=== PATIENT | female | born 1965 | race Caucasian/White ===

== ENCOUNTER 2021-09-10 08:09 | Outpatient (CLI) | payer BC, SELFPAY ==
--- NOTE | 2021-09-10 08:15 | CRLHL7_ITS ---
For Patients: As a result of the Century Cures Act, medical imaging exams and procedure reports are released immediately into your electronic medical record. You may view this report before your referring provider. If you have questions, please contact your health care provider. INDICATION: Bilateral flank pain TECHNIQUE: Ultrasound abdomen complete. Sonographic images of the entire abdomen were obtained using dillon-scale and color Doppler. COMPARISON: None FINDINGS: Liver: Normal in size and echotexture. No masses. No intrahepatic biliary dilatation. Gallbladder: No stones or sludge. Normal wall thickness. No pericholecystic fluid. Common bile duct: 3.8 mm. Pancreas: Normal. Spleen: Normal in size and appearance. Right kidney: 13.2 cm. Normal echotexture and cortex. No masses, stones, or hydronephrosis. Left kidney: 12.0 cm. Normal echotexture and cortex. No masses, stones, or hydronephrosis. Vasculature: Proximal abdominal aorta and IVC are normal in caliber. IMPRESSION: Unremarkable abdomen ultrasound. Dictated by Jarad Gama MD @ 09/10/2021 10:33:27 AM (Electronically Signed)
== END 2021-09-10 08:10 | disposition home or self-care (01) ==
LOC: US 08:11
PROVIDERS: PCP Physician Assistant Medical; Visit Provider Physician Assistant Medical
DX: R10.9 Unspecified abdominal pain (principal)
CPT/HCPCS: 76700

== ENCOUNTER 2021-10-03 16:17 | Outpatient (CLI) | payer BC, SELFPAY ==
[2021-10-03 21:32] LABS: Creatine Kinase* 137 U/L (41-117); Lactate Dehydrogenase* 566 U/L (313-618)
== END 2021-10-03 16:18 | disposition home or self-care (01) ==
PROVIDERS: PCP Physician Assistant Medical; Visit Provider Physician Assistant Medical
DX: R53.83 Other fatigue (principal); R74.02 Elevation of levels of lactic acid dehydrogenase [LDH]; R74.8 Abnormal levels of other serum enzymes; D64.9 Anemia, unspecified
CPT/HCPCS: 82550; 83615; 85018

== ENCOUNTER 2021-11-13 16:28 | Outpatient (CLI) | payer BC, SELFPAY ==
[2021-11-13 17:01] LABS: Erythrocyte SedimentationRate* 3 mm/hr (2-20)
[2021-11-13 22:01] LABS: Albumin* 4.5 g/dL (3.3-5.0); Chloride* 105 mmol/L (96-114)
[2021-11-13 22:02] LABS: Potassium* 4.6 mmol/L (3.6-5.1); Sodium* 141 mmol/L (135-149)
[2021-11-13 22:04] LABS: Bilirubin Total* 0.3 mg/dL (0.1-1.5); Carbon Dioxide* 29 mmol/L (20-32); Creatinine* 0.9 mg/dL (0.5-1.5); Estimated Glomerular Filt Rate 76 ml/min
[2021-11-13 22:05] LABS: Alanine Aminotransferase* 19 U/L (4-35); Alkaline Phosphatase* 63 U/L (40-150); Aspartate Amino Transferase* 25 U/L (12-35); Blood Urea Nitrogen* 26 mg/dL (7-30); Calcium* 9.5 mg/dL (8.4-10.6); Creatine Kinase* 109 U/L (41-117); Glucose* 93 mg/dL (60-115); Lactate Dehydrogenase* 594 U/L (313-618); Magnesium* 2.4 mg/dL (1.5-2.6)
[2021-11-13 22:08] LABS: Iron* 122 ug/dL (37-170)
[2021-11-13 22:58] LABS: Percent Iron Saturation 32 % (20-50); Total Iron Binding Capacity 382 ug/dL (265-497)
[2021-11-13 22:59] LABS: Vitamin B12* 541 pg/mL (243-894)
== END 2021-11-13 16:29 | disposition home or self-care (01) ==
PROVIDERS: PCP Physician Assistant Medical; Visit Provider Physician Assistant Medical
DX: D64.9 Anemia, unspecified (principal); G89.29 Other chronic pain; R53.83 Other fatigue; R74.02 Elevation of levels of lactic acid dehydrogenase [LDH]; R74.8 Abnormal levels of other serum enzymes
CPT/HCPCS: 80053; 82085; 82550; 82607; 83540; 83550; 83615; 83735; 84443; 85651

== ENCOUNTER 2022-03-27 15:38 | Outpatient (CLI) | payer BC, SELFPAY ==
[2022-03-30 11:12] LABS: Homocysteine, Total 11 umol/L (0-15)
== END 2022-03-27 15:39 | disposition home or self-care (01) ==
PROVIDERS: PCP Physician Assistant Medical; Visit Provider Physician Assistant Medical
DX: R53.83 Other fatigue (principal)
CPT/HCPCS: 83090

== ENCOUNTER 2022-09-24 13:40 | Outpatient (CLI) | payer BC, SELFPAY | END 2022-09-24 13:41 | disposition home or self-care (01) | LOC: NFLDREF 09-25 07:29 | PROVIDERS: PCP Physician Assistant Medical; Referring Provider Physician Assistant Medical; Visit Provider Physician Assistant Medical | DX: Z00.00 Encounter for general adult medical examination without abnormal findings (principal); R53.82 Chronic fatigue, unspecified; R00.2 Palpitations; Z13.29 Encounter for screening for other suspected endocrine disorder; D64.9 Anemia, unspecified; R74.02 Elevation of levels of lactic acid dehydrogenase [LDH]; Z15.89 Genetic susceptibility to other disease; R74.8 Abnormal levels of other serum enzymes; G47.34 Idiopathic sleep related nonobstructive alveolar hypoventilation | CPT/HCPCS: 80053; 80061; 82550; 83615; 84443 ==

== ENCOUNTER 2023-02-04 16:01 | Outpatient (CLI) | payer BC, SELFPAY | END 2023-02-04 16:02 | disposition home or self-care (01) | PROVIDERS: PCP Physician Assistant Medical; Visit Provider Physician Assistant Medical | DX: R53.83 Other fatigue (principal); D64.9 Anemia, unspecified; R74.8 Abnormal levels of other serum enzymes; R74.02 Elevation of levels of lactic acid dehydrogenase [LDH] | CPT/HCPCS: 82306; 82728; 82746; 84425; 86364; 86617 ==

== ENCOUNTER 2023-03-12 09:22 | Outpatient (CLI) | payer BC, SELFPAY ==
--- OUTSIDE RECORDS SUMMARY | 2023-03-18 12:01 | XMS_ITS | Referral Summary ---
Author Name Unknown Organization [facility] Address [address] [place] [address] Care Team Providers Care Language Path Name Role Phone Elsewhere, Pcp Primary Care Provider Unavailabl e Source Comments Patient records contain information from all sites at [facility]. For routine questions regarding patient records, call [phone] during business hours, M-F 8:00 AM - 5:00 PM Central Time. Record requests for emergency care only can be directed to [phone] at any time.[facility] Encounters Date Type Department Care Team Description 03/04/2023 Clinical Communication Division of General Internal Medicine in [place], [place] [address] [place] [address] Tc Castle M.D. Results 12/30/2022 Clinical Communication [facility] in [place], [place] [address] [place] [address] Linden Finley III, M.D. Communication (Keep Appt or Reschedule) from Last 3 Months Allergies Active Allergy Reactions Criticality Noted Date Comments Ciprofloxacin Other (see comments) 08/22/2021 Nickel Other (see comments) 02/12/2022 Perfume Other (see comments) Low 02/12/2022 Fluid in lungs Medications Medication Sig Dispensed Refills Start Date End Date Status DME CPAPIndications:Apnea Sleep Obstructive,Overweight Body Mass Index 25-29.9 Adult,Abnormal Oximetry,Complaint Memory DME Order 1 each 0 10/07/2022 Active Active Problems Problem Noted Date Diagnosed Date Palpitations 10/07/2022 Fatigue 10/07/2022 Hypersomnia 10/07/2022 Insufficient Sleep Syndrome 10/07/2022 Apnea Sleep Obstructive 07/24/2022 Overweight Body Mass Index 25-29.9 Adult 023 Abnormal Oximetry 07/24/2022 Complaint Memory 07/24/2022 Nicotine Dependence Unspecified 02/27/2014 07/24/2022 Immunizations Name Administration Dates Next Due DTaP (Infanrix, Tripedia) 09/17/2006 HepB Adult 02/23/1996,11/17/1995,10/07/1995 HepB, Unspecified 02/23/1996,11/17/1995,10/06/18 96 Influenza TIV (IM) 02/03/2011,03/25/2010, 008 Influenza, Seasonal, Injectable 02/03/2011,03/25,01/24/2008 Influenza, Unspecified 02/18/2022(Deferr ed: Patient Refused),01/24/2008 PCV13 02/18/2022(Deferred: Other - pt will check with the provider) RZV (SHINGRIX) 02/18/2022(Deferred: Patient dec ision) SARS-COV-2 (COVID-19) - MODERNA 02/18/2022(Defer red: Patient Refused) Tdap 02/18/2022(Deferred: Other - up to date ( pt states receiving in 2018 ?)),09/17/2006 Social History Tobacco Use Types Packs/Day Years Used Date Smoking Tobacco: Every Day Cigarettes 0.3 Smokeless Tobacco: Never Tobacco Cessation:Ready to Q uit: Not Asked; Counseling Given: Not Answered PHQ-2 Answer Date Recorded PHQ-2 Score 1 03/24/2022 Depression Answer Date Recor ded PHQ-9 Total Score (max 27) 6 03/24 Nutrition Answer Date Recorded Nutrition: EVOO Fat Source Unknown 10/08 Nutrition: Servings of Fruits/Vegetables per Day Not on file 10/08/2021 Dental Answer Date Recorded Dental: Regular Dentist Unknown 10/09/19 22 Sex and Gender Information Value Date Recorded Sex Assigned at Not on file Gender Identity Not on file Sexual Orientation Not on file Last Filed Vital Signs Vital Sign Reading Time Taken Comments Blood Pressure 123/70 11/18/2022 8:54 AM CDT Pulse 76 11/18/2022 8:54 AM CDT Temperature - - Respiratory Rate - - Oxygen Saturation 98% 03/26/2022 4:13 PM ORTHOTIC PRACTITIONER Inhaled Oxygen Concentration - - Weight 86.9 kg (191 lb 9.3 oz) 11/18/2022 8:54 A M CDT Height 169.5 cm (5' 6.73) 11/18/2022 8:54 AM CD T Body Mass Index 30.25 11/18/2022 8:54 AM CDT Plan of Treatment Upcoming Encounters Date Type Department Care Team (Latest Contact Info) Description 03/25/2023 10:15 AM ORTHOTIC PRACTITIONER Clinical Communication Virtual Review in [place], [place] [address] [place] [address] 03/26/2023 11:30 AM ORTHOTIC PRACTITIONER Office Visit [facility] in [place], [place] [address] [place] [phone] Linden Finley III, M.D. [address] [place] [address] Medical Devices Implanted Type Area It Audit Manager Device Identifier Shelf Expiration Date Model / Serial / Lot Imaging Marker Imaging Marker Left: Breast Care Teams Language Path Relationship Specialty Start Date End Date Elsewhere, Pcp PCP - General Internal Medicine 03/12/22
--- OUTSIDE RECORDS SUMMARY | 2023-03-18 12:01 | XMS_ITS | Clinical Summary ---
Author Name Unknown Organization [facility] Address [address] [place] [address] Care Team Providers Care Account Receivable Associate Name Role Phone Elsewhere, Pcp Primary Care Provider Unavailabl e Source Comments Patient records contain information from all sites at [facility]. For routine questions regarding patient records, call [phone] during business hours, M-F 8:00 AM - 5:00 PM Central Time. Record requests for emergency care only can be directed to [phone] at any time.[facility] Allergies Active Allergy Reactions Criticality Noted Date [...] Memory 07/24/2022 Nicotine Dependence Unspecified 02/27/2014 07/24/2022 Encounters Date Type Department Care Team Description 03/04/2023 Clinical Communication Division of General Internal Medicine in [place], [place] [address] [place] [address] Tc Castle M.D. Results 12/30/2022 Clinical Communication [facility] in [place], [place] [address] [place] [address] Linden Finley III, M.D. Communication (Keep Appt or Reschedule) from Last 3 Months Immunizations Name Administration Dates Next Due DTaP [...] - Oxygen Saturation 98% 03/26/2022 4:13 PM MARKET MANAGER Inhaled Oxygen Concentration - - Weight 86.9 kg (191 lb 9.3 oz) 11/18/2022 8:54 A M CDT Height 169.5 cm (5' 6.73) 11/18/2022 8:54 AM CD T Body Mass Index 30.25 11/18/2022 8:54 AM CDT Plan of Treatment Upcoming Encounters Date Type Department Care Team (Latest Contact Info) Description 03/25/2023 10:15 AM MARKET MANAGER Clinical Communication Virtual Review in [place], [place] [address] [place] [address] 03/26/2023 11:30 AM MARKET MANAGER Office Visit [facility] in [place], [place] [address] [place] [phone] Linden Finley III, M.D. [address] [place] [phone] Health Maintenance Due Date Last Done Comments CT Colonography 1966 Cologuard 1966 Colonoscopy 1966 Colorectal Cancer Screening 1966 FIT 1966 HIV Screening 1966 Hepatitis C Screening 1966 Lipid (Cholesterol) Screening 1966 Tobacco Cessation counseling 1966 COVID-19 Vaccine (#1) 1966 Pneumococcal vaccine (0-64 y ears) (1 of 2 - PCV) 1972 Zoster Vaccines (1 of 2) 2016 DTaP,Tdap,and Td Vaccines (3 - Td or Tdap) 09/17/2016 09/17/2006, 09/17/2006 Depression Screening (Annual PHQ-2) 03/09/2022 Mammogram 04/25/2022 04/25/2021, 04/09 (Performed elsewhere), 04/25/2021, Additional history exists Influenza Vaccine (#1) 2022 1, 02/03/2011, 03/25/2010, Additional history exists Cervical Cancer Screening 10/30/20232020, 10/29/2020 (Performed elsewhere) Fasting Glucose for Diabetes Screening 02/19/2025 02/19/2022 Hepatitis B Vaccines Completed 02/23/1996, 02/23/1996, 11/17/1995, Additional history exists Medical Devices Implanted Type Area Application Specialist Device Identifier Shelf Expiration Date Model / Serial / Lot Imaging Marker Imaging Marker Left: Breast Care Teams Account Receivable Associate Relationship Specialty Start Date End Date Elsewhere, Pcp PCP - General Internal Medicine 03/12/22
--- OUTSIDE RECORDS SUMMARY | 2023-03-18 12:02 | XMS_ITS | Encounter Summary ---
Author Name Unknown Organization [facility] Address [address] [place] [address] Care Team Providers Care Clerk Entry Level Name Role Phone Elsewhere, Pcp Primary Care Provider Unavailabl e Reason for Visit * Reason Onset Date Comments After Visit Question 09/01/2022 Encounter Details Date Type Department Care Team (Latest Contact Info) Description 09/01/2022 Clinical Communication [facility] in [place], [place] [address] [place] [address] Linden Finley III, M.D. [address] [place] [address] After Visit Question Social History Tobacco Use Types Packs/Day Years Used Date Smoking Tobacco: Every Day Cigarettes 0.3 Smokeless Tobacco: Never PHQ-2 Answer Date Recorded PHQ-2 Score 1 03/24/2022 Depression Answer Date Recor ded PHQ-9 Total Score (max 27) 6 03/24 Nutrition Answer Date Recorded Nutrition: EVOO Fat Source Unknown 10/08 Nutrition: Servings of Fruits/Vegetables per Day Not on file 10/08/2021 Dental Answer Date Recorded Dental: Regular Dentist Unknown 10/09/19 Sex and Gender Information Value Date Recorded Sex Assigned at Not on file Gender Identity Not on file Sexual Orientation Not on file documented as of this encounter Miscellaneous Notes * Telephone Encounter - Renae Hastings R.N. - 09/03/2022 3:01 PM CDT SUBJECTIVE CHIEF COMPLAINT / REASON FOR CALL After Visit Question Information Discussed Kandis shared that she was wanting to complete an overnight oximetry while on CPAP but she did not indicate why. She stated that the CPAP device gives off a new car smell. She does not care for this and worries about the health consequences of inhaling this over time and cancer risk. She does have a ResMed AirSense 10 AutoSet that is cloud capable and is viewable on [employer]. She states she is using a Respironics foam mask. She states this covers her mouth and nose but she is not happy with the fit. If her mouth opens the lower portion of the mask will not seal. She mentions financial difficulties and she cannot pay for any supplies out of pocket. She states she is sleeping awfully due to mask leak. PLAN Disposition/Recommendation: It was explained that Dr. Finley is not recommending an overnight oximetry while on PAP at this time. It was explained that a download from her CPAP device will be viewed at the time of her follow-up visit. In the meantime, she was encouraged to work with her vendor for a better fitting/sealing mask. She already has left her vendor a voicemail. She will also discuss with them her concerns about the smell of the machine. She states she has cleaned her supplies with soap and water and vinegar. Information/Education: patient/caller able to teach back Caller agreeable to plan of care: yes The following references were used: nursing clinical judgement * Telephone Encounter - Chinmay Beverly - 09/01/2022 4:51 PM CDT Reason for Calling: Question about overnight oximetry testing and if she needs it before next appt.Also has questions about CPAP usage. Vendor Name: [employer]/[place], [place] Call Back Number: [phone] Please review, Thank you! Chinmay documented in this encounter Plan of Treatment Upcoming Encounters Date Type Department Care Team (Latest Contact Info) Description 03/25/2023 10:15 AM MARBLE AND GRANITE POLISHER Clinical Communication Virtual Review in [place], [place] [address] [place] [address] 03/26/2023 11:30 AM MARBLE AND GRANITE POLISHER Office Visit [facility] in [place], [place] [address] [place] [address] Linden Finley III, M.D. [address] [place] [address] documented as of this encounter Visit Diagnoses Not on filedocumented in this encounter Additional Health Concerns Assessment Noted Time PHQ-9 Depression Total Score: 6 03/24/19 23 7:22 AM MARBLE AND GRANITE POLISHER documented as of this encounter Care Teams Clerk Entry Level Relationship Specialty Start Date End Date Elsewhere, Pcp PCP - General Internal Medicine 03/12/22 documented as of this encounter
--- OUTSIDE RECORDS SUMMARY | 2023-03-18 12:02 | XMS_ITS | Encounter Summary ---
Author Name Unknown Organization [facility] Address [address] [place] [address] Care Team Providers Care Refinery Operator Helper Name Role Phone Elsewhere, Pcp Primary Care Provider Unavailabl e Reason for Visit * Outpatient (Routine) - Closed Specialty Diagnoses / Procedures Referred By Contmax t Referred To Contact Diagnoses Abnormal Oximetry Procedures Home sleep apnea test (HSAT) Nereida Shah [address] [place] [phone] [facility] Referral ID Status Reason Start Date Expiration Date Visits Re quested Visits Authorized [id number] Closed 07/23/2022 07/23/2023 1 1 Encounter Details Date Type Department Care Team (Latest Contact Info) Description 07/24/2022 7:15 AM CDT - 07/27/2022 11:59 PM CDT Hospital Encounter [facility] in [place], [place] [address] [place] [phone] Nereida Shah [address] [place] [phone] Discharge Disposition: Home or Self Care Social History Tobacco Use Types Packs/Day Years [...] on file documented as of this encounter Medications at Time of Discharge Medication Sig Dispensed Refills Start Date End Date DME CPAPIndications:Abnormal Oximetry,Apnea Sleep Obstructive,Overweight Body Mass Index 25-29.9 Adult,Complaint Memory DME Order 1 each 0 07/24/2022 10/07/2022 documented as of this encounter Plan of Treatment Upcoming Encounters Date Type Department Care Team (Latest Contact Info) Description 03/25/2023 10:15 AM PORT CRANE OPERATOR Clinical Communication Virtual Review in [place], [place] [address] [place] [address] 03/26/2023 11:30 AM PORT CRANE OPERATOR Office Visit [facility] in [place], [place] [address] [place] [phone] Linden Finley III, M.D. [address] [place] [phone] documented as of this encounter Procedures Procedure Name Priority Date/Time Associated Diagnosis Comments HC TESTING DIRECTOR STDY UNATTND HRT RATE O2 Routine 07/24/2022 8:20 AM CDT Abnormal Oximetry documented in this encounter Results * Home sleep apnea test (HSAT) (07/24/2022 8:20 AM CDT) Narrative ONBASE - 07/24/2022 8:32 AM CDT This home sleep apnea test was done using peripheral tonometry/WatchPat technology. ??No ventilatory assist device or supplemental oxygen was utilized during the study. ?? Recording from 11:11 p.m. to 4:55 a.m. total recording time was 343 minutes and total sleep time 308 minutes, 191.7 supine, 6.5 prone, 110.5 left side, no right side. ?? For total sleep time P AHI was 5.7 pRDI 9.6. ?? Supine pAHI was 9.1 and pRDI 15.4. ??Left side 0 and 0 respectively. ?? REM P AHI was 18.3 and pRDI 22.5. ??Non-REM 0.8 and RDI 5.6. ?? Oxygen desaturation index was 5.3. ?? Mean saturation 93%, queta 82%, 1.7 minutes spent with a saturation less than 88%. ??Snoring greater than 40 decibels was present 55.5% of total sleep time. ?? Summary: Mild, somewhat positional, REM predominant obstructive sleep apnea. Nereida Shah [facility] ORDERAB LES ONBASE NA documented in this encounter Visit Diagnoses Not on filedocumented in this encounter Additional Health Concerns Assessment Noted Time PHQ-9 Depression Total Score: 6 03/24/19 23 7:22 AM PORT CRANE OPERATOR documented as of this encounter Care Teams Refinery Operator Helper Relationship Specialty Start Date End Date Elsewhere, Pcp PCP - General Internal Medicine 03/12/22 documented as of this encounter
--- OUTSIDE RECORDS SUMMARY | 2023-03-18 12:02 | XMS_ITS | Encounter Summary ---
Author Name Unknown Organization [facility] Address [address] [place] [address] Care Team Providers Care Wax Machine Operator Name Role Phone Elsewhere, Pcp Primary Care Provider Unavailabl e Reason for Referral * Outpatient (Routine) - Closed Specialty Diagnoses / Procedures Referred By Kourtney crum Referred To Contact Diagnoses Abnormal Oximetry Procedures Home sleep apnea test (HSAT) Nereida Shah [address] [place] [phone] [facility] Referral ID Status Reason Start Date Expiration Date Visits Re quested Visits Authorized [id number] Closed 07/23/2022 07/23/2023 1 1 Reason for Visit * Outpatient (Routine) - Closed Specialty Diagnoses / Procedures Referred By Kourtney crum Referred To Contact Diagnoses Abnormal Oximetry Procedures Home sleep apnea test (HSAT) Nereida Shah [address] [place] [phone] [facility] Referral ID Status Reason Start Date Expiration Date Visits Re quested Visits Authorized [id number] Closed 07/23/2022 07/23/2023 1 1 Encounter Details Date Type Department Care Team (Latest Contact Info) Description 07/23/2022 3:14 PM CDT - 07/26/2022 11:59 PM CDT Hospital Encounter [facility] in [place], [place] [address] [place] [phone] Nereida Shah [address] [place] [phone] Abnormal Oximetry Discharge Disposition: Home or Self Care Social [...] (Latest Contact Info) Description 03/25/2023 10:15 AM PATTERNATOR Clinical Communication Virtual Review in [address] [address] 03/26/2023 11:30 AM PATTERNATOR Office Visit [facility] in [address] [phone] Linden Finley III, M.D. [address] [place] [phone] documented as of this encounter Procedures Procedure Name Priority Date/Time Associated Diagnosis Comments HC FORGER HELPER STDY UNATTND HRT RATE O2 Routine 07/24/2022 [...] NA documented in this encounter Visit Diagnoses Diagnosis Abnormal Oximetry documented in this encounter Additional Health Concerns Assessment Noted Time PHQ-9 Depression Total Score: 6 03/24/19 23 7:22 AM PATTERNATOR documented as of this encounter Care Teams Wax Machine Operator Relationship Specialty Start Date End Date Elsewhere, Pcp PCP - General Internal Medicine 03/12/22 documented as of this encounter
--- OUTSIDE RECORDS SUMMARY | 2023-03-18 12:02 | XMS_ITS ---
Author Name Unknown Organization [facility] Address [address] [place] [address] Care Team Providers Care Metaphysics Teacher Name Role Phone Unavailable Unavailable Unavailable Surgery Details Not on file Complications Check Surgery Details section. Procedure Estimated Blood Loss Check Surgery Details section. Procedure Findings Check Surgery Details section. Procedure Specimens Taken Check Surgery Details section.
--- OUTSIDE RECORDS SUMMARY | 2023-03-18 12:02 | XMS_ITS | Encounter Summary ---
Author Name Unknown Organization [facility] Address [address] [place] [address] Care Team Providers Care Child Abuse Worker Name Role Phone Elsewhere, Pcp Primary Care Provider Unavailabl e Reason for Visit * Reason Onset Date Comments Communication 12/30/2022 Keep Appt or Res chedule Encounter Details Date Type Department Care Team (Latest Contact Info) Description 12/30/2022 Clinical Communication [facility] in [place], [place] [address] [place] [address] Linden Finley III, M.D. [address] [place] [phone] Communication (Keep Appt or Reschedule) Social History Tobacco Use Types Packs/Day Years [...] encounter Miscellaneous Notes * Telephone Encounter - Aliyah Stone R.N. - 12/31/2022 9:56 AM CDT Information Discussed Phone call was returned to Kandis who has an upcoming appointment on 01/06/[address] Finley. She has been unable to use her PAP therapy consistently as she has been ill. She has questions aboutconsistent usage and her fatigue symptoms, cleaning her PAP device, possibility of lung infections,alternative PAP treatment options. Questions were answered to the best of my ability. Cleaning of PAP device/supplies reviewed, if she has questions regarding possible lung infection have encouraged her to speak with her PCP. She will continue to try to use her PAP therapy nightly for the duration of her sleep. Will reschedule follow-up appointment with Dr. Finley. If she is not successful with consistent usage and does not obtain benefit she will discuss alternative treatment options at her follow-up appointment. PLAN Disposition/Recommendation: patient transferred to the appointment desk Information/Education: patient/caller able to teach back Caller agreeable to plan of care: yes The following references were used: nursing clinical judgement * Telephone Encounter - Hazel Bradshaw - 12/30/2022 5:10 PM CDT Patient last saw Nurse Kvng on 11/18/2022 and would like to talk to either her or Dr. Finley. She is scheduled to see Dr. Finley on 01/06/2023 but is wondering if she should keep the appointment or push it out further. She has been sick lately and has not been using her PAP device. She said that for about the last month, she was using it for the first two weeks, but has not used it now forabout two weeks due to being sick. She is also wondering if she is getting sick as a result of using it. Please call her back at [phone] and let her know if you think she should postpone the appointment on 01/06 or keep it. Thank you! documented in this encounter Plan of Treatment Upcoming Encounters Date Type Department Care Team (Latest Contact Info) Description 03/25/2023 10:15 AM NAIL PULLER Clinical Communication Virtual Review in [place], [place] [address] [place] [address] 03/26/2023 11:30 AM NAIL PULLER Office Visit [facility] in [place], [place] [address] [place] [phone] Linden Finley III, M.D. [address] [place] [phone] documented as of this encounter Visit Diagnoses Not on filedocumented in this encounter Additional Health Concerns Assessment Noted Time PHQ-9 Depression Total Score: 6 03/24/19 23 7:22 AM NAIL PULLER documented as of this encounter Care Teams Child Abuse Worker Relationship Specialty Start Date End Date Elsewhere, Pcp PCP - General Internal Medicine 03/12/22 documented as of this encounter
--- OUTSIDE RECORDS SUMMARY | 2023-03-18 12:02 | XMS_ITS | Encounter Summary ---
Author Name Unknown Organization [facility] Address [address] [place] [address] Care Team Providers Care Loss Prevention Officer Name Role Phone Elsewhere, Pcp Primary Care Provider Unavailabl e Reason for Referral * Specialty Diagnoses / Procedures Referred By Contac t Referred To Contact Linden Finley III, M.D. [address] [place] [phone] [facility] Referral ID Status Reason Start Date Expiration Date Visits Re quested Visits Authorized Encounter Details Date Type Department Care Team (Latest Contact Info) Description 10/07/2022 11:30 AM CDT - 10/10/2022 11:59 PM CDT Hospital Encounter [facility] [place], [place] [address] [place] [phone] Linden Finley III, M.D. [address] [place] [phone] Apnea Sleep Obstructive Discharge Disposition: Home or Self Care Social [...] Dispensed Refills Start Date End Date DME CPAPIndications:Apnea Sleep Obstructive,Overweight Body Mass Index 25-29.9 Adult,Abnormal Oximetry,Complaint Memory DME Order 1 each 0 10/07/2022 documented as of this encounter Progress Notes * Dari Mejias [facility] - 10/07/2022 11:30 AM CDT A mask recommendation requested following Sleep Medicine provider return appointment. Mask Fit AR application (by [employer]) was used to determine the following 3 mask styles and sizes for the patient: Medium (M), ResMed, AirFit F30 Full Face Mask Medium (M), ResMed, AirFot F20 Full Face Mask Small (S), Maciel [employer]kel, Vitera Full Face Mask documented in this encounter Plan of Treatment Upcoming Encounters Date Type Department Care Team (Latest Contact Info) Description 03/25/2023 10:15 AM MANAGER CONSTRUCTION Clinical Communication Virtual Review in [place], [place] [address] [place] [address] 03/26/2023 11:30 AM MANAGER CONSTRUCTION Office Visit [facility] in [place], [place] [address] [place] [phone] Linden Finley III, M.D. [address] [place] [phone] Scheduled Referrals Name Type Priority Associated Diagnoses Order Schedule Sleep Medicine - Technologist education visit (clinic) Outpatient Referral Routine Apnea Sleep Obstructive Once for 1 Occurrences starting 10/07/2022 until 10/07/2022 documented as of this encounter Visit Diagnoses Diagnosis Apnea Sleep Obstructive documented in this encounter Additional Health Concerns Assessment Noted Time PHQ-9 Depression Total Score: 6 03/24/19 7:22 AM MANAGER CONSTRUCTION documented as of this encounter Care Teams Loss Prevention Officer Relationship Specialty Start Date End Date Elsewhere, Pcp PCP - General Internal Medicine 03/12/22 documented as of this encounter
--- OUTSIDE RECORDS SUMMARY | 2023-03-18 12:02 | XMS_ITS | Encounter Summary ---
Author Name Unknown Organization [facility] Address [address] [place] [address] Care Team Providers Care Housing Coordinator Name Role Phone Elsewhere, Pcp Primary Care Provider Unavailabl e Reason for Visit * Outpatient (Routine) - Closed Specialty Diagnoses / Procedures Referred By Contmax t Referred To Contact Hematology Diagnoses Elevation Of Levels Of Lactic Acid Dehydrogenase (LDH) Soila Beasley P.A. [address] [place] [phone] [facility] Referral ID Status Reason Start Date Expiration Date Visits Re quested Visits Authorized [id number] Closed 10/22/2022 10/22/2023 1 1 Encounter Details Date Type Department Care Team (Latest Contact Info) Description 11/20/2022 9:30 AM CDT Comprehensive Visit Division of Hematology in [place], [place] [address] [place] [phone] Soila Beasley PMaira [address] [place] [phone] Lester Jain M.D., M.S. [address] [place] [phone] Elevation Of Levels Of Lactic Acid Dehydrogenase (LDH) (Primary Dx); Nicotine Dependence Cigarettes; Apnea Sleep Obstructive Social History Tobacco Use Types Packs/Day Years [...] on file documented as of this encounter Consult Notes * Ruth Ann Truong M.D. - 11/20/2022 9:[address] [facility] Date of Visit: 11/20/2022 Clinician: Ruth Ann Truong M.D. Supervised by: Dr. Jain PCP: ELSEWHERE, PCP Referring Provider: William Ralph SUBJECTIVE CHIEF COMPLAINT / REASON FOR VISIT Elevated LDH HISTORY OF PRESENT ILLNESS Kandis Caceres is a 57 y.o. female who presents for elevated LDH. Her PMH is significant for nicotine dependence, obstructive sleep apnea. She was first seen at [facility] in February 2022 for evaluation and management of chronic fatigue. A broad workup was obtained including basic CBC and electrolytes, inflammatory markers, liver function, TSH etc. Her labs was remarkable for borderline elevated LDH of 231, without other signs of blood abno rmalities including cytopenias or hemolysis. Her MCV was 94, hemoglobin normal at 11.8, platelet count 322 normal. PNH screen was negative. Reticulocytes and haptoglobin at normal range. There is abnormality in the overnight oximetry and patient is being evaluated in sleep Medicine Clinic and was fitted for a CPAP. Her mass is being adjusted for better fitting. She believes that her sleep apnea may not be contributory to her symptoms of extreme fatigue and pain. She has concerns about elevated LDH being related to mitochondrial abnormalities, MS, malignancy, hypoglycemia. She had multiple colleagues at work that have been recently diagnosed with different types of lymphoma. Shecontinues to struggle with physical demands of her work. She is understandable quite tearful duringmy exam today. She had a recent comprehensive lab work repeated in October. All these lab results were reviewed which was reassuring. CBC, kidney function, liver function were all normal. She did have LDH that was again borderline elevated. The following portions of the patient???s history were reviewed and updated as appropriate: allergies, current medications, family history, medical history, social history, surgical history and problem list. OBJECTIVE PHYSICAL EXAM There were no vitals taken for this visit. Constitutional: Not in acute distress. Well developed. Eyes: No icterus, no conjunctival erythema. Cardiac: Regular pulses peripherally. No edema. No murmurs or irregular heartbeat. Pulmonary: No increased work of breathing. Clear to auscultation. Abdomen: Soft, non-tender. Normal bowel sounds. Neurological: Gait is grossly intact. Psychiatric: Tearful. ASSESSMENT / PLAN #1 Elevation Of Levels Of Lactic Acid Dehydrogenase (LDH) #2 Nicotine Dependence Cigarettes #3 Apnea Sleep Obstructive Patient presents with isolated LDH elevation without other abnormalities in blood work. Her PNH screen was negative. Hemolysis labs were normal. Inflammatory markers normal. LDH is a nonspecific marker that can be elevated in the setting of may different types of organ involvement. We do not think this is hematologically driven. We do not have a reason to believe that her extreme fatigue is related to a hematological disorder. Given the her recent blood draw locally was otherwise unremarkable and unchanged, we do not think that there is utility in repeating labs either. We talked extensively about possible lifestyle interventions that could improve her chronic fatiguesymptoms. Namely, we talked about reducing caffeine intake and encouraging hydration with water or non-caffeinated drinks. Strength exercises would be helpful in maintaining muscle weight. Continued adherence to CPAP therapy for obstructive sleep apnea will be important for general heart health including blood pressure. Smoking cessation is also highly recommended. She is understandably psychologically distressed from prolonged symptoms without clear etiology. It will be important to address mood symptoms going forward as well and appropriate intervention as indicated. Her symptoms are not consistent with the diagnosis of restless leg syndrome. But her ferritin was somewhat low range at 61. It would be reasonable to consider iron supplementation to keep ferritin level above 100. This can be followed up with her PCP. The above information was discussed and reviewed with Ms. Kandis Caceres. I encouraged Ms. Caceres to call or message us in the meantime if any questions or concerns arise.She understands and agrees with the above plan. All other questions were answered. Ruth Ann Truong M.D. Internal Medicine, PGY-3 * Lester Jain M.D., M.S. - 11/20/2022 9:30 AM CDT SUBJECTIVE REFERRAL SOURCE Soila Beasley PA-C [facility] [id number] [facility], [address] Resident assisting in her evaluation today is Ruth Ann Truong M.D. REASON FOR CONSULT Mildly elevated LDH; fatigue; generalized pain, especially back pain; muscle cramps. HISTORY OF PRESENT ILLNESS I saw Ms. Kandis Caceres in the Coagulation Clinic on 11/20/2022 for her mildly elevated LDH. Today, I was assisted in her evaluation by the coagulation resident, Dr. Ruth Ann Truong, and I agree with her history, physical examination findings, and plan of care as outlined in her clinical note from today. Briefly, Ms. Caceres is a 57-year-old female who since 2018 has been feeling unwell. It initially started as eye pain/pressure. MRI of the brain that was performed in September 2017 demonstrated patchy fluid levels within her left mastoid air cells along with mild mucosal thickening. There were a couple of foci of nonspecific T2/FLAIR hyperintensity within the white matter that were felt to be of doubtful significance and was felt to be within the range of expected for her age. Over the last few years, she has been having progressively worsening fatigue and has generalized pain, especially in herback. In addition, she has been having leg cramps. She has also been having issues with palpitations, especially when she lies down on her bed from a sitting position. She denies postural lightheadedness/dizziness on getting up from a lying or sitting position. Ms. Caceres has been diagnosed with mild REM predominant obstructive sleep apnea and has been prescribed a CPAP. She wore CPAP consistently for a couple of weeks after the diagnosis; however, that impacted her sleep adversely because of ill-fitting mask/air leak, and therefore, has been using it only intermittently. She recently got a new face mask for her CPAP and has a followup visit scheduled with the Sleep Clinic in about 6 weeks. Ms. Caceres underwent an extensive laboratory workup in February 2022 for her ongoing symptoms andwas noted to have marginally elevated LDH (223 units/L; upper reference range 222). On repeat testing, it was again mildly elevated at a 231 U/L. Her CBC, peripheral blood smear, ESR, CRP, BRANDEN, cold agglutinin titer, Donath-Landsteiner antibody, PNH screen, haptoglobin, urine hemosiderin, total anddirect bilirubin were within the normal reference range. Her electrolytes and LFTs were within the normal reference range. Her CK was also normal at 143 U/L. Her folate, ferritin, and vitamin B12 where normal. Her AM cortisol, TSH were normal. Her celiac disease serology (IgA tTg antibody) was not elevated. Ms. Caceres had repeat lab tests performed in October 2022 in an outside facility, which again revealed a normal CBC with normal leukocyte count, hemoglobin and platelets. Her LDH was still mildly elevated at 261 unit/L (upper reference range 246). 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 She smokes 1/2 packet of cigarettes a day. OBJECTIVE PHYSICAL EXAMINATION Vitals: 30.25 kg/m2. Blood pressure 123/70 mmHg. Pulse 76 per minute. General: Appears to be tired, and was teary on a few occasions during our discussion. Eyes: No conjunctival pallor or scleral icterus. Skin: No ecchymoses noted. Extremities: No edema of feet. DIAGNOSTICS I have reviewed the laboratory data available in the electronic medical records and some of the pertinent findings have been summarized in the HPI section. ASSESSMENT / PLAN #1 Mildly elevated LDH #2 Sleep apnea #3 Fatigue #4 Generalized achiness Ms. Caceres has been noted to have a mildly elevated LDH, and the etiology of the same is unclear.She has had an extensive workup for hemolysis which has been negative. Moreover, her CBC currently is within the normal reference range. She does have muscle cramps which could have contributed to her elevated LDH. Of note, Ms. Caceres admits that she drinks a lot of caffeinated products (coffee and iced tea) and less of non-caffeinated products including water. Of note, dehydration can lead to muscle cramps. However, her electrolytes, creatinine, and hepatic panel have been within the normal reference range. Ms. Caceres was diagnosed with sleep apnea in July 2022 and has a CPAP machine, but has not been utilizing it regularly of late because of ill-fitting mask. She now has a new mask, and we have encouraged her to utilize it on a consistent basis for the next few weeks prior to her followup appointment in the Sleep Clinic to see whether that helps with her symptoms of fatigue. We also have advised her to drink plenty of non-caffeinated fluids, although this could be a challenge during daytime as she works as a mailing specialist. If she continues to have persistent fatigue despite utilizing the CPAP machine on a regular basis, she may benefit from referral to [facility]for further evaluation. We empathized with Ms. Caceres's frustration with regards to not having a clear answer regarding what is causing her underlying symptoms and how to help improve her symptoms. We tried to addressed the questions Ms. Caceres had, hopefully to her satisfaction. PATIENT EDUCATION: Learning needs assessment was performed. No learning barriers were identified. Explained diagnosis and treatment plan. Patient expressed understanding and was able to teach back. Lester Jain M.D., M.S. CT CT Job ID: [id number] documented in this encounter Plan of Treatment Upcoming Encounters Date Type Department Care Team (Latest Contact Info) Description 03/25/2023 10:15 AM QUALITY ASSURANCE ANALYST Clinical Communication Virtual Review in [address] [address] 03/26/2023 11:30 AM QUALITY ASSURANCE ANALYST Office Visit [facility] in [address] [phone] Linden Finley III, M.D. [address] [place] [phone] documented as of this encounter Visit Diagnoses Diagnosis Elevation Of Levels Of Lactic Acid Dehydrogenase (LDH)- Primary Nicotine Dependence Cigarettes Apnea Sleep Obstructive documented in this encounter Additional Health Concerns Assessment Noted Time PHQ-9 Depression Total Score: 6 03/24/19 23 7:22 AM QUALITY ASSURANCE ANALYST documented as of this encounter Care Teams Housing Coordinator Relationship Specialty Start Date End Date Elsewhere, Pcp PCP - General Internal Medicine 03/12/22 documented as of this encounter
--- OUTSIDE RECORDS SUMMARY | 2023-03-18 12:02 | XMS_ITS | Encounter Summary ---
Author Name Unknown Organization [facility] Address [address] [place] [address] Care Team Providers Care Web Development Manager Name Role Phone Elsewhere, Pcp Primary Care Provider Unavailabl e Reason for Visit * Reason Onset Date Comments Results 03/04/2023 Encounter Details Date Type Department Care Team (Late st Contact Info) Description 03/04/2023 Clinical Communication Division of General Internal Medicine in [place], [place] [address] [place] [phone] Tc Castle M.D. [address] [place] [phone] Results Social History Tobacco Use Types Packs/Day Years [...] encounter Miscellaneous Notes * Telephone Encounter - Nick Valeria Mixon - 03/04/2023 1:55 PM CST SUBJECTIVE CHIEF COMPLAINT / REASON FOR CALL Results Contacts Type Contact Phone/Fax 03/04/2023 01:55 PM CLIENT EXPERIENCE ADMINISTRATOR Phone (Incoming) Kandis Caceres (Self) [phone] (H) Patient expects communication via portal: No Valid authorization on file: Yes Test Results Questions to be answered: what does results mean and can she have a repeat test Type of test: isotype Date of test: 02/19/2022 Additional comments: patient was looking at her letter and results from last year and noticed that her labs on 02/19/2022 had some exclamation bacon on them and was reading up on these results and one said to repeat in six months and was wondering if she could do that when she is here in March. NT EXPERIENCE ADMINISTRATOR documented in this encounter Plan of Treatment Upcoming Encounters Date Type Department Care Team (Latest Contact Info) Description 03/25/2023 10:15 AM CLIENT EXPERIENCE ADMINISTRATOR Clinical Communication Virtual Review in [place], [place] [address] [place] [address] 03/26/2023 11:30 AM CLIENT EXPERIENCE ADMINISTRATOR Office Visit [facility] in [place], [place] [address] [place] [phone] Linden Finley III, M.D. [address] [place] [phone] documented as of this encounter Visit Diagnoses Not on filedocumented in this encounter Additional Health Concerns Assessment Noted Time PHQ-9 Depression Total Score: 6 03/24/19 23 7:22 AM CLIENT EXPERIENCE ADMINISTRATOR documented as of this encounter Care Teams Web Development Manager Relationship Specialty Start Date End Date Elsewhere, Pcp PCP - General Internal Medicine 03/12/22 documented as of this encounter
--- OUTSIDE RECORDS SUMMARY | 2023-03-18 12:02 | XMS_ITS | Encounter Summary ---
Author Name Unknown Organization [facility] Address [address] [place] [address] Care Team Providers Care Tdp Displays Analyst Name Role Phone Elsewhere, Pcp Primary Care Provider Unavailabl e Reason for Referral * Outpatient (Routine) - Authorized Specialty Diagnoses / Procedures Referred By Kourtney crum Referred To Contact Sleep Medicine Linden Finley III, M.D. [address] [place] [phone] Linden Finley III, M.D. [address] [place] [phone] Referral ID Status Reason Start Date Expiration Date V isits Requested Visits Authorized [id number] Authorized 11/18/2022 11/17/2025 1 1 Reason for Visit * Reason Comments Sleep Apnea Cpap Follow-up * Outpatient (Routine) - Closed Specialty Diagnoses / Procedures Referred By Kourtney crum Referred To Contact Sleep Linden Chopra III, M.D. [address] [place] [phone] [facility] Referral ID Status Reason Start Date Expiration Date Visits Re quested Visits Authorized [id number] Closed 10/07/2022 10/06/2025 1 1 Encounter Details Date Type Department Care Team (Late st Contact Info) Description 11/18/2022 8:45 AM CDT Nurse Only [facility] in [place], [place] [address] [place] [phone] Linden Finley III, M.D. [address] [place] [phone] Aliyah Stone R.N. 200 [place] [phone] Sleep Apnea; Cpap Follow-up Social History Tobacco Use Types Packs/Day Years [...] on file documented as of this encounter Last Filed Vital Signs Vital Sign Reading Time Taken Comments Blood Pressure 123/70 11/18/2022 8:54 AM CDT Pulse 76 11/18/2022 8:54 AM CDT Temperature - - Respiratory Rate - - Oxygen Saturation - - Inhaled Oxygen Concentration - - Weight 86.9 kg (191 lb 9.3 oz) 11/18/2022 8:54 A M CDT Height 169.5 cm (5' 6.73) 11/18/2022 8:54 AM CD T Body Mass Index 30.25 11/18/2022 8:54 AM CDT documented in this encounter Progress Notes * Aliyah Stone R.N. - 11/18/2022 8:45 AM CDT Images from the original note were not included. REASON FOR VISIT Kandis Caceres presents for 1 month follow-up . Home Sleep Apnea Test was completed on 07/23/2022 and showed an pAHI of 5.7/pRDI 9.6. At time of testing, the ESS was 7. Kandis Caceres weight at the time of testing was 84.1 kg. SUBJECTIVE Kandis Caceres currently unable to verbalize if she has noted subjective benefit from the use of PAP therapy. Kandis Caceres does understand the potential health benefits of PAP therapy. Improvements related to PAP usage: no subjective improvement noted. Current concerns/challenges about treatment: interface leak. Denies the following with PAP: choking, gasping, post nasal drip, and rhinorrhea. Snoring: No Snort Arousals: No Morning Headaches: No [place] Score: 13 (11/18/22 1000 : Aliyah Stone, R.N.) PROMIS Adult Short Form-Global Health Score (Mental): 7 (11/18/22 1000 : Aliyah Stone, R.N.) PROMIS Adult Short Form-Global Health Score (Physical): 9 (11/18/22 1000 : Aliyah Stone, R.N.) Kandis Caceres reports a regular sleep schedule. Typically going to bed around 2200 and rising around 0600 with an alarm feeling somewhatrefreshed by sleep. Kandis will often fall asleep on the couchfor several hours in the evening without her PAP device. I reviewed and discouraged Kandis Caceres from sleepy, drowsy, or tired driving. Kandis Caceres verbalized understanding. OBJECTIVE Patient Active Problem List Diagnosis Apnea Sleep Obstructive Nicotine Dependence Unspecified Overweight Body Mass Index 25-29.9 Adult Abnormal Oximetry Complaint Memory Palpitations Fatigue Hypersomnia Insufficient Sleep Syndrome The download showed that the device was set as prescribed. PAP therapy prescribed at: 5-15 cmH2O. Downloaded compliance indicates usage for 15 of 30 days, and average usage of 4 hours 45 minutes nightly. Nightly use exceeded 4 hours for 30% of the time. The estimated apnea-hypopnea index on treatment is 2.2/hr. 95% estimated mask leak was 26.9 and maximum mask leak was 61.6. The interface is a Eun View, medium Heated humidity is set at 2, and heated hose has been set at off. Vendor: [employer] VITAL SIGNS: Blood Pressure: 123/70 (11/18/2022 8:54 AM) Pulse Rate: 76 (11/18/2022 8:54 AM) BMI (Calculated): 30.2 kg/m?? (11/18/2022 8:54 AM) Height: 169.5 cm (11/18/2022 8:54 AM) Weight: 86.9 kg (11/18/2022 8:54 AM) ASSESSMENT / PLAN This return visit was supervised by Lonnie Krause M.D. Updated plan of care and treatment recommendations provided as a result of today's visit include: 1. Continue PAP therapy at 5-15 cm H2O. 2. Kandis Caceres will continue to utilize the full face interface. Patient was provided with a sample F&P full face mask. She has felt with the hybrid full face masks they tend to leak around the corners of her mouth as they are too narrow. 3. [facility] management of the sleep treatment plan was reviewed with instruction on the focus thatthis is a chronic medical condition that requires ongoing assessment. Follow-up recommendation is for 4-[address] Finley. Kandis Caceres should bring their PAP equipment to any appointmen ts scheduled here. 4. Encouraged nightly use for at least 4 hours with the goal of use for the duration of her sleep. 5. Have talked about strategies to remember to apply PAP mask/therapy such as setting an alarm. 6. Encouraged her to try taking evening showers to see if she finds this relaxing and helps relievemuscle discomfort. 7. At next appointment encouraged Kandis to speak with Dr. Finley to quantify if there is something else besides sleep disordered breathing that is contributing to her fatigue. Comprehensive education was provided regarding Positive Airway Pressure Therapy (PAP). Common problems encountered when utilizing PAP were reviewed in detail including vasomotor rhinitis, dry mouth, and congestion. Instruction regarding how to change the heated humidity and heated hose was provided. Proper care of PAP equipment and intervals for replacing supplies was provided. Reinforcement of the importance of properly cleaning the humidifier and empty the water daily was provided. The impactof weight loss in relationship to sleep disordered breathing was reviewed and weight loss encouraged. Discussion of the health risks of untreated obstructive sleep apnea was reviewed. Encouragement and reinforcement to wear PAP for the duration of sleep was provided. I reinforced importance in obtaining adequate total sleep time of 7-8 hours daily. The patient verbalized understanding of diagnosis and sleep treatment plan and was able to teach back concepts reviewed today. documented in this encounter Plan of Treatment Upcoming Encounters Date Type Department Care Team (Latest Contact Info) Description 03/25/2023 10:15 AM PAN DUMPER Clinical Communication Virtual Review in [place], [place] [address] [place] [address] 03/26/2023 11:30 AM PAN DUMPER Office Visit [facility] in [place], [place] [address] [place] [phone] Linden Finley III, M.D. [address] [place] [phone] Scheduled Referrals Name Type Priority Associated Diagnoses Orde r Schedule Sleep Medicine office visit (clinic) Outpatient Referral Routine Expected: 12/30/2022, Expires: 02/18/2024 documented as of this encounter Visit Diagnoses Diagnosis Apnea Sleep Obstructive- Primary documented in this encounter Additional Health Concerns Assessment Noted Time PHQ-9 Depression Total Score: 6 03/24/19 23 7:22 AM PAN DUMPER documented as of this encounter Care Teams Tdp Displays Analyst Relationship Specialty Start Date End Date Elsewhere, Pcp PCP - General Internal Medicine 03/12/22 documented as of this encounter
--- OUTSIDE RECORDS SUMMARY | 2023-03-18 12:02 | XMS_ITS | Encounter Summary ---
Author Name Unknown Organization [facility] Address [address] [place] [address] Care Team Providers Care Railroad Emergency Services Manager Name Role Phone Elsewhere, Pcp Primary Care Provider Unavailabl e Reason for Visit * Reason Onset Date Comments Pre-visit Intake 11/12/2022 Encounter Details Date Type Department Care Team (Latest Contact Info) Description 11/12/2022 11:45 AM CDT Clinical Communication Virtual Review in [address] [address] Pre-visit Intake Social History Tobacco Use Types Packs/Day Years [...] on file documented as of this encounter Plan of Treatment Upcoming Encounters Date Type Department Care Team (Latest Contact Info) Description 03/25/2023 10:15 AM SUPERVISOR WHITE SUGAR Clinical Communication Virtual Review in [address] [address] 03/26/2023 11:30 AM SUPERVISOR WHITE SUGAR Office Visit [facility] in [place], [place] [address] [place] [phone] Linden Finley III, M.D. [address] [place] [phone] documented as of this encounter Visit Diagnoses Not on filedocumented in this encounter Additional Health Concerns Assessment Noted Time PHQ-9 Depression Total Score: 6 01/16/20 23 7:22 AM SUPERVISOR WHITE SUGAR documented as of this encounter Care Teams Railroad Emergency Services Manager Relationship Specialty Start Date End Date Elsewhere, Pcp PCP - General Internal Medicine 03/12/22 documented as of this encounter
--- OUTSIDE RECORDS SUMMARY | 2023-03-18 12:02 | XMS_ITS | Encounter Summary ---
Author Name Unknown Organization [facility] Address [address] [place] [address] Care Team Providers Care Circuit Breaker Mechanic Name Role Phone Elsewhere, Pcp Primary Care Provider Unavailabl e Reason for Referral * Outpatient (Routine) - Closed Specialty Diagnoses / Procedures Referred By Kourtney t Referred To Contact Hematology Diagnoses Elevation Of Levels Of Lactic Acid Dehydrogenase (LDH) Soila Beasley P.A. [address] [place] [phone] [facility] Referral ID Status Reason Start Date Expiration Date Visits Re quested Visits Authorized [id number] Closed 10/22/2022 10/22/2023 1 1 Encounter Details Date Type Department Care Team (Latest Contact Info) Description 10/21/2022 [facility] [address] [place] [phone] Soila Beasley P.A. [address] [place] [phone] Elevation Of Levels Of Lactic Acid Dehydrogenase (LDH) (Primary Dx) Social History Tobacco Use Types Packs/Day Years [...] (Latest Contact Info) Description 03/25/2023 10:15 AM COMMERCIAL LOAN MANAGER Clinical Communication Virtual Review in [place], [place] [address] [place] [address] 03/26/2023 11:30 AM COMMERCIAL LOAN MANAGER Office Visit [facility] in [place], [place] [address] [place] [phone] Linden Finley III, M.D. [address] [place] [phone] Scheduled Referrals Name Type Priority Associated Diagnoses Orde r Schedule Hematology Referral Outpatient Referral Routine Elevation Of Levels Of Lactic Acid Dehydrogenase (LDH) Expected: 10/22/2022 (Approximate), Expires: 01/23/2024 documented as of this encounter Visit Diagnoses Diagnosis Elevation Of Levels Of Lactic Acid Dehydrogenase (LDH)- Primary documented in this encounter Additional Health Concerns Assessment Noted Time PHQ-9 Depression Total Score: 6 03/24/19 7:22 AM COMMERCIAL LOAN MANAGER documented as of this encounter Care Teams Circuit Breaker Mechanic Relationship Specialty Start Date End Date Elsewhere, Pcp PCP - General Internal Medicine 03/12/22 documented as of this encounter
--- OUTSIDE RECORDS SUMMARY | 2023-03-18 12:02 | XMS_ITS | Encounter Summary ---
Author Name Unknown Organization [facility] Address [address] [place] [address] Care Team Providers Care Regional Sales Manager Name Role Phone Elsewhere, Pcp Primary Care Provider Unavailabl e Reason for Referral * Outpatient (Routine) - Closed Specialty Diagnoses / Procedures Referred By Kourtney crum Referred To Contact Sleep Medicine Linden Finley III, M.D. [address] [place] [phone] [facility] Referral ID Status Reason Start Date Expiration Date Visits Re quested Visits Authorized [id number] Closed 07/24/2022 07/23/2025 1 1 Reason for Visit * Outpatient (Routine) - Closed Specialty Diagnoses / Procedures Referred By Kourtney crum Referred To Contact Sleep Medicine Diagnoses Abnormal Oximetry Nereida Shah [address] [place] [phone] [facility] Referral ID Status Reason Start Date Expiration Date Visits Re quested Visits Authorized [id number] Closed 07/23/2022 07/22/2025 1 1 Encounter Details Date Type Department Care Team (Late st Contact Info) Description 07/24/2022 9:00 AM CDT Office Visit [facility] in [place], [place] [address] [place] [phone] Linden Finley III, M.D. [address] [place] [phone] Apnea Sleep Obstructive (Primary Dx); Abnormal Oximetry; Overweight Body Mass Index 25-29.9 Adult; Complaint Memory Social History Tobacco Use Types Packs/Day Years [...] on file documented as of this encounter Progress Notes * Linden Finley III, M.D. - 07/24/2022 9:00 AM CDT SUBJECTIVE CHIEF COMPLAINT/REASON FOR VISIT [place], CHILD CARE AIDE, C.N.P., D.N.P was not available so I met with Ms. Insert patient last nameto review the results of the home sleep apnea test done last night. HISTORY OF PRESENT ILLNESS Kandis Caceres is a 57 y.o. female completed a home sleep apnea test last night. Current Outpatient Medications Medication Sig Dispense Refill DME CPAP DME Order 1 each 0 No current facility-administered medications for this visit. Allergies Allergen Reactions Ciprofloxacin Other (see comments) Nickel Other (see comments) Perfume Other (see comments) Fluid in lungs ROS Reviewed encounter review of systems and pertinent responses are noted in the history. OBJECTIVE Blood Pressure: 105/63 (07/23/2022 2:25 PM) Pulse Rate: 87 (07/23/2022 2:25 PM) BMI (Calculated): 29.1 kg/m?? (07/23/2022 2:25 PM) Height: 170.1 cm (shoes on) (07/23/2022 2:25 PM) Weight: 84.1 kg (shoes on) (07/23/2022 2:25 PM) PHYSICAL EXAMINATION The patient is well dressed, well nourished, no acute distress. The patient is alert and oriented, cooperative and reliable, without evidence of significant cognitive, thought, perceptual, or mood disorder. There is effective participation in understanding, discussing, and problem-solving the complexities of sleep problems. 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 This week when she has been off of work she is not necessarily slept that much better and is still severely tired. The severe fatigue and tiredness are a major impairment in her life at work and at home. She actually sheds tears when talking about how severe it is and how hard it has been to keep functioning. Personally reviewed with her and interpreted home sleep apnea test that was done last night. Please see home sleep apnea test report for detail. This home sleep apnea test was done using peripheral tonometry/WatchPat technology. No ventilatory assist device or supplemental oxygen was utilized during the study. Recording from 11:11 p.m. to 4:55 a.m. total recording time was 343 minutes and total sleep time 308 minutes, 191.7 supine, 6.5 prone, 110.5 left side, no right side. For total sleep time P AHI was 5.7 pRDI 9.6. Supine pAHI was 9.1 and pRDI 15.4. Left side 0 and 0 respectively. REM P AHI was 18.3 and pRDI 22.5. Non-REM 0.8 and RDI 5.6. Oxygen desaturation index was 5.3. Mean saturation 93%, queta 82%, 1.7 minutes spent with a saturation less than 88%. Snoring greater than 40 decibels was present 55.5% of total sleep time. Summary: Mild, somewhat positional, REM predominant obstructive sleep apnea. Given the severity of her fatigue and sleepiness, although I doubt that this mild sleep apnea wouldexplain all of her symptoms, she agreed with my opinion that it is reasonable to treat this and seehow much difference it makes in how well rested she is and how well she can function. I discussed treatment options and she accepted my recommendation to proceed with CPAP because it islikely to have a much more rapid benefit and we can find out whether its benefit is worth rather quickly. Prescription provided for auto PAP 5-15 cm of water pressure. I urged her to allow us to health care coach her during this start up time. Asked her let us know when she has a device and will schedule a 31-90 day follow-up visit. PATIENT EDUCATION Learning needs assessment was performed. No learning barriers were identified. Explained diagnosis and treatment plan. Patient expressed understanding and was able to teach back. I personally spent 30 minutes in care of the patient today. Time includes both non face to face andface to face patient care. Electronically signed by Linden Finley III, M.D. 07/24/22 documented in this encounter Plan of Treatment Upcoming Encounters Date Type Department Care Team (Latest Contact Info) Description 03/25/2023 10:15 AM ARCHERY INSTRUCTOR Clinical Communication Virtual Review in [address] [address] 03/26/2023 11:30 AM ARCHERY INSTRUCTOR Office Visit [facility] in [address] [phone] Linden Finley III, M.D. [address] [place] [phone] Scheduled Referrals Name Type Priority Associated Diagnoses Orde r Schedule Sleep Medicine office visit (clinic) Outpatient Referral Routine Expected: 07/24/2022 (Approximate), Expires: 10/25/2023 documented as of this encounter Visit Diagnoses Diagnosis Apnea Sleep Obstructive- Primary Abnormal Oximetry Overweight Body Mass Index 25-29.9 Adult Complaint Memory documented in this encounter Additional Health Concerns Assessment Noted Time PHQ-9 Depression Total Score: 6 03/24/19 23 7:22 AM ARCHERY INSTRUCTOR documented as of this encounter Care Teams Regional Sales Manager Relationship Specialty Start Date End Date Elsewhere, Pcp PCP - General Internal Medicine 03/12/22 documented as of this encounter
--- OUTSIDE RECORDS SUMMARY | 2023-03-18 12:02 | XMS_ITS | Encounter Summary ---
Author Name Unknown Organization [facility] Address [address] [place] [id number] Care Team Providers Care Sewer Pipe Offbearer Name Role Phone Elsewhere, Pcp Primary Care Provider Unavailabl e Reason for Referral * Outpatient (Routine) - Closed Specialty Diagnoses / Procedures Referred By Kourtney crum Referred To Contact Sleep Linden Chopra III, M.D. [address] [place] [phone] [facility] Referral ID Status Reason Start Date Expiration Date Visits Re quested Visits Authorized [id number] Closed 10/07/2022 10/06/2025 1 1 Scheduling Instructions With download to review * Specialty Diagnoses / Procedures Referred By Kourtney crum Referred To Contact Linden Finley III, M.D. [address] [place] [phone] [facility] Referral ID Status Reason Start Date Expiration Date Visits Re quested Visits Authorized Reason for Visit * Outpatient (Routine) - Closed Specialty Diagnoses / Procedures Referred By Kourtney crum Referred To Contact Sleep Linden Chopra III, M.D. [address] [place] [phone] [facility] Referral ID Status Reason Start Date Expiration Date Visits Re quested Visits Authorized [id number] Closed 07/24/2022 07/23/2025 1 1 Encounter Details Date Type Department Care Team (Late st Contact Info) Description 10/07/2022 11:30 AM CDT Office Visit [facility] in [place], [place] [address] [place] [address] Linden Finley III, M.D. [address] [place] [address] Apnea Sleep Obstructive (Primary Dx); Insufficient Sleep Syndrome; Hypersomnia; Overweight Body Mass Index 25-29.9 Adult; Abnormal Oximetry; Complaint Memory; Palpitations; Fatigue; Smoking Tobacco Use Personal History Social History Tobacco Use Types Packs/Day Years [...] Notes * Linden Finley III, M.D. - 10/07/2022 11:30 AM CDT Images from the original note were not included. SUBJECTIVE CHIEF COMPLAINT/REASON FOR VISIT I met with Ms. Caceres to follow up on treatment of obstructive sleep apnea with CPAP. HISTORY OF PRESENT ILLNESS Kandis Caceres is a 57 y.o. female has a quite significant fatigue and sleepiness problem. She has had extensive evaluation as noted in the [facility] record. Treating mild obstructive sleep apnea as a 1st step in seeing if there is a variable that will improve fatigue and sleepiness. Unfortunately because of mask leak and inability to tolerate plastic smell, she still struggling touse CPAP enough to see if it is worth it with regard to the focus of fatigue and excessive sleepiness. She says the DME provider that she is dealt with at home has not been very satisfactory with respect to working with her to try to find an optimal mask fit and alternative is for the intolerant plastic smell. She has obtained a non heated hose which she thinks is helps some. Is this plastic smell not a skinreaction that has been the. 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 She says on days that she is not working if she eats anything she will have an intense sleepiness drive that is nearly irresistible. Download from her [employer] SN: [id number] from September 05 to October 04, 2022 confirms her report. To use it more than 4 hours 6 of the 30 days with an average use days used a few hours and 36 minutes. Median pressure 95th percentile maximum pressure are acceptable at 6.78.111 cm of water pressure respectively with auto PAP setting 5-15 cm of water with an Expiratory Pressure Release of 2 soft response. Median leak is 13.8 liters/minute, 95th percentile 41.9, maximum 78.4. AHI is 3.9. AI 3.7, AHI 0.2, obstructive 1.7, central 0.4, unknown 1.6, respiratory related arousalindex 0.3. Current Outpatient Medications Medication Sig Dispense Refill DME CPAP DME Order 1 each 0 No current facility-administered medications for this visit. Allergies Allergen Reactions Ciprofloxacin Other (see comments) Nickel Other (see comments) Perfume Other (see comments) Fluid in lungs ROS Reviewed encounter review of systems and pertinent responses are noted in the history. EPWORTH SCORE: 11 (10/07/222199 : Linden Finley III, M.D.) Scores of less than 10 are considered within the normal range. [place]., A new method for measuring daytime sleepiness: the [place] sleepiness scale. Sleep, 1991. 14(6): p. 540-5. INTERNATIONAL RESTLESS LEGS STUDY GROUP SEVERITY SCALE: 0 (10/07/222199 : Linden Finley III, M.D.) Scoring criteria are: Mild 1-10; Moderate 11-20; Severe, 21-30; Very severe 31-40 Jaya Cash, Jen Herrera, et al. Validation of the International Restless Legs Syndrome Study Group Rating Scale for restless legs syndrome. Sleep Med 2003;4:121-32. OBJECTIVE PHYSICAL EXAMINATION The patient is well dressed, well nourished, no acute distress. The patient is alert and oriented, cooperative and reliable, without evidence of significant cognitive, thought, perceptual, or mood disorder. There is effective participation in understanding, discussing, and problem-solving the complexities of sleep problems. ASSESSMENT / PLAN #1 Apnea Sleep Obstructive #2 Insufficient Sleep Syndrome #3 Hypersomnia #4 Overweight Body Mass Index 25-29.9 Adult #5 Abnormal Oximetry #6 Complaint Memory #7 Palpitations #8 Fatigue #9 Smoking Tobacco Use Personal History Kandis Caceres is a 57 y.o. female has several sleep problems. #1 obstructive sleep apnea. We collaboratively agreed to continue to see if she can learn to use CPAP well enough long enough to see if that influences her fatigue and daytime sleepiness even though it is mild. No other clinical examination thus far has yielded other reasons for her fatigue and sleepiness. I will have her do a mask fit visit. I gave her a renewed prescription and she may see if she can get satisfactory results from another DME provider. She said she will try the [place] [facility] store to see if it is possible for them to engage and work with her at this point. I will set up a phone call follow-up. She says video follow-up just are not something she can do and she does not have someone who can help organized that for her. A phone follow-up in 31-90 days with a download is ordered. The patient continues to have a medical condition for which PAP is medically indicated. The replacement of accessories is medically necessary and essential to use PAP effectively.?? #2 insufficient sleep/hypersomnia. She says the over her lifetime being a single mother doing everything at home and working she got used to 6 hours of sleep waking up couple of hours before ideal awakening time. Now she goes to bed 930 she can frequently awakens before 830 in the morning. She has 24 oz of caffeine in the morning and another 16 oz up until about 6:00 p.m. which is only 3-1/2 hours before she goes to bed. In spite of that she is still is very sleepy as described above. If she is able to optimize sleep quality and extend her sleep quantity and is still non refreshed, then the issue of possibility of a central nervous system hypersomnia arises. At that time, I told her we would need to do actigraphy, laboratory sleep study with polysomnography treating optimally what we find, and then MSLT. She says the problem with the MSLT would be that unless she has a sugar load she does not have irresistible sleep. We will have to deal with that in the future if needed. For the time being she will do her best extend her total sleep time. I told her if she wakes up with the panic-like adrenaline surge that she reports wondering if she is over slept, the best things she could do would be to read herself back to sleep or at least to read without electronic device until it is time to get up. We can work more on managing her end of night insomnia if needed. She has many questions about her health which have not yet been answered to her satisfaction. She wonders about whether hypoglycemia is a factor contributing to some of her symptoms of shakiness. Shewonders if that is a contributing factor to the increased sleepiness if she eats during the day. She wonders if she is having neurocognitive declined as a prodrome to her father's development frontotemporal dementia after he was a very healthy vigorous man well into his 60s. She says the hospice nurse told her that he probably had multi infarct dementia. At this point I told her I do not have any way to particularly assist in answering these many questions so it is best if she pursues this with her primary care team at home. I could obtain neuropsychological testing but her description she would not necessarily be satisfied with that meant if it was normal. She may ask her team at home get a 5 hour tolerance test to test her concern about that particular issue. She is aware that I need to focus on things related to my expertise in Sleep Medicine. Next appointment will be a phone call follow-up for CPAP treatment. PATIENT EDUCATION Ready to learn, no apparent learning barriers were identified; learning preferences include listening. Explained diagnosis and treatment plan; patient expressed understanding of the content. I personally spent 75 minutes in care of the patient today. Time includes both non face to face andface to face patient care. Electronically signed by Linden Finley III, M.D. 10/07/22 documented in this encounter Plan of Treatment Upcoming Encounters Date Type Department Care Team (Latest Contact Info) Description 03/25/2023 10:15 AM [facility] Clinical Communication Virtual Review in [place], [place] [address] [place] [phone] 03/26/2023 11:30 AM WINDOW INSTALLATION SUBCONTRACTOR Office Visit [facility] in [place], [place] 200 [place] [address] Linden Finley III, M.D. 200 [place] [address] Scheduled Referrals Name Type Priority Associated Diagnoses Orde r Schedule Sleep Medicine - Technologist education visit (clinic) Outpatient Referral Routine Apnea Sleep Obstructive Expected: 10/07/2022, Expires: 01/08/2024 Sleep Medicine office visit (clinic) Outpatient Referral Routine Expected: 10/07/2022 (Approximate), Expires: 01/08/2024 documented as of this encounter Visit Diagnoses Diagnosis Apnea Sleep Obstructive- Primary Insufficient Sleep Syndrome Hypersomnia Overweight Body Mass Index 25-29.9 Adult Abnormal Oximetry Complaint Memory Palpitations Fatigue Smoking Tobacco Use Personal History documented in this encounter Additional Health Concerns Assessment Noted Time PHQ-9 Depression Total Score: 6 03/24/19 7:22 AM WINDOW INSTALLATION SUBCONTRACTOR documented as of this encounter Care Teams Sewer Pipe Offbearer Relationship Specialty Start Date End Date Elsewhere, Pcp PCP - General Internal Medicine 03/12/22 documented as of this encounter
--- OUTSIDE RECORDS SUMMARY | 2023-03-18 12:02 | XMS_ITS | Encounter Summary ---
Author Name Unknown Organization [facility] Address [address] [place] [address] Care Team Providers Care Stadium Attendant Name Role Phone Elsewhere, Pcp Primary Care Provider Unavailabl e Reason for Visit * Reason Onset Date Comments After Visit Question 09/18/2022 Encounter Details Date Type Department Care Team (Latest Contact Info) Description 09/18/2022 Clinical Communication [facility] in [place], [place] [address] [place] [phone] Linden Finley III, M.D. [address] [place] [phone] After Visit Question Social History Tobacco Use [...] encounter Miscellaneous Notes * Telephone Encounter - Chinmay Beverly - 09/18/2022 1:43 PM CDT Reason for Calling: Trouble with mask leak, also waking up at night - thinks it could be PAP therapy doing this. Would like to review with a nurse for troubleshooting with machine as well, making sure she is not screwing up her data. Also question about non heated hose. Call Back Number: [phone] Please review, Thank you! Chinmay documented in this encounter Plan of Treatment Upcoming Encounters Date Type Department Care Team (Latest Contact Info) Description 03/25/2023 10:15 AM SLURRY TANK TENDER Clinical Communication Virtual Review in [place], [place] [address] [place] [address] 03/26/2023 11:30 AM SLURRY TANK TENDER Office Visit [facility] in [place], [place] [address] [place] [phone] Linden Finley III, M.D. [address] [place] [phone] documented as of this encounter Visit Diagnoses Not on filedocumented in this encounter Additional Health Concerns Assessment Noted Time PHQ-9 Depression Total Score: 6 03/24/19 23 7:22 AM SLURRY TANK TENDER documented as of this encounter Care Teams Stadium Attendant Relationship Specialty Start Date End Date Elsewhere, Pcp PCP - General Internal Medicine 03/12/22 documented as of this encounter
--- OUTSIDE RECORDS SUMMARY | 2023-03-18 12:02 | XMS_ITS | Encounter Summary ---
Author Name Unknown Organization [facility] Address [address] [place] [address] Care Team Providers Care Psychologist Military Personnel Name Role Phone Elsewhere, Pcp Primary Care Provider Unavailabl e Reason for Referral * Outpatient (Routine) - Closed Specialty Diagnoses / Procedures Referred By Kourtney crum Referred To Contact Sleep Medicine Diagnoses Abnormal Oximetry Nereida Shah [address] [place] [phone] [facility] Referral ID Status Reason Start Date Expiration Date Visits Re quested Visits Authorized [id number] Closed 07/23/2022 07/22/2025 1 1 Scheduling Instructions PSG/HST return visit * Outpatient (Routine) - Closed Specialty Diagnoses / Procedures Referred By Kourtney crum Referred To Contact Diagnoses Abnormal Oximetry Procedures Home sleep apnea test (HSAT) Nereida Shah [address] [place] [address] [facility] Referral ID Status Reason Start Date Expiration Date Visits Re quested Visits Authorized [id number] Closed 07/23/2022 07/23/2023 1 1 Reason for Visit * Outpatient (Routine) - Closed Specialty Diagnoses / Procedures Referred By Contmax t Referred To Contact Sleep Medicine Diagnoses Abnormal Oximetry Tc Castle M.D. [address] [place] [phone] [facility] Referral ID Status Reason Start Date Expiration Date V isits Requested Visits Authorized [id number] Closed Specialty Services Required 02/20/2022 02/20/2023 1 1 Encounter Details Date Type Department Care Team (Latest Contact Info) Description 07/23/2022 2:30 PM CDT Comprehensive Visit [facility] in [place], [place] [address] [place] [address] Nereida Shah [address] [place] [address] Abnormal Oximetry (Primary Dx); Fatigue Social History Tobacco Use Types Packs/Day Years [...] Sign Reading Time Taken Comments Blood Pressure 105/63 07/23/2022 2:25 PM CDT Pulse 87 07/23/2022 2:25 PM CDT Temperature - - Respiratory Rate - - Oxygen Saturation - - Inhaled Oxygen Concentration - - Weight 84.1 kg (185 lb 6.5 oz) 07/23/2022 2:25 P M CDT shoes on Height 170.1 cm (5' 6.97) 07/23/2022 2:25 PM CD T shoes on Body Mass Index 29.07 07/23/2022 2:25 PM CDT documented in this encounter Consult Notes * Nereida Shah, LEAD SOFTWARE DEVELOPMENT ENGINEER, C.N.P., D.N.P. - 07/23/2022 2:30 PM CDT Images from the original note were not included. SUBJECTIVE CHIEF COMPLAINT/REASON FOR CONSULT Evaluate for sleep apnea HISTORY OF PRESENT ILLNESS Ms. Caceres is a pleasant 57 y.o. from [place], [place] who [facility] unaccompanied for the aforementioned reasons at the request of Tc Castle M.D. Her pastmedical history is significant for fatigue and mild emphysema. Ms. Caceres beds between 10 p.m. and 11 p.m. and is generally able to initiate sleep quickly. She typically is able to maintain sleep. In the morning she awakens between 5:15 a.m. and 6 a.m. feelingunrefreshed. She does not lay down to nap, but will doze off after eating. She generally denies excessive daytime sleepiness, with an [place] Sleepiness Scale of 7/24. She reports fatigue several times during our visit. No accidents or near misses as a result of excessive sleepiness while driving. Ms. Caceres does not have a bed partner. Thus, the sleep disordered breathing history is unclear. She has been told by her son that he snores. However, she is unsure if it is intense enough to disrupt someone sleep or be heard outside the bedroom. There have been no witnessed apneic pauses or snort arousals. Ms. Caceres prefers to sleep in the lateral decubitus position. No tonsillectomy. Body mass index is 29.07 kg/m??. The sleep history is otherwise negative for restless legs symptoms, dream enactment episodes, cataplexy, hypnagogic-hypnopompic hallucinations, sleep paralysis, and sleep walking. Ms. Caceres smokes six cigarettes a day. She drinks three coffees a day. No illicit street drug oralcohol use. The following portions of the patient's history were reviewed and updated as appropriate: allergies, current medications, family history, medical history, social history, surgical history and problemlist. REVIEW OF SYSTEMS Reviewed encounter review of systems and pertinent responses are noted in the history. OBJECTIVE I reviewed results of the overnight oximetry performed 02/18/2022. The study showed 30 drops in oxyhemoglobin saturation of at least 4%, for an oxyhemoglobin desaturation index of 4.2 per hour. Mean oxyhemoglobin saturation was 92.6%, with a queta of 86%. VITAL SIGNS Wt Readings from Last 3 Encounters: 07/23/22 84.1 kg 03/26/22 84.7 kg 02/18/22 87.1 kg BP Readings from Last 3 Encounters: 07/23/22 105/63 03/26/22 116/68 02/18/22 111/71 Pulse Readings from Last 3 Encounters: 07/23/22 87 03/26/22 70 02/19/22 79 No current outpatient medications on file. PHYSICAL EXAM Appearance and Behavior:Kandis Caceres is a 57 y.o. female who appeared alert and in no acute distress. Speech: Normal in rate and volume. Relevant and coherent with no speech abnormalities. Mood: Affect flat. Affect was mood congruent. Thoughts: Linear and goal directed with no thought form abnormality. No delusions or thought possession abnormalities noted. Perceptions: No perceptual abnormalities noted. Cognition: Kandis Caceres was oriented to time, place and person. During the interview Kandis Caceres appeared to have normal medium to terminal operations supervisor memory and no short term memory difficulties werenoted. Attention span and concentration were normal. Judgement appeared to be intact and fund of knowledge was appropriate per the interview. Risk: Based on current interview no suicidal thoughts and no imminent risk to self were identified.No imminent risk to others was identified. Insight: Insight was poor. ASSESSMENT / PLAN 1. Borderline overnight oximetry, query obstructive sleep apnea 2. Fatigue We reviewed the pathophysiology of obstructive sleep apnea, and how disease at least moderate in severity is a cardiovascular risk factor. She has a history of snoring and a borderline overnight oximetry in the setting of fatigue. We reviewed the options of home sleep testing versus in-lab polysomnography, and the pros/cons of each. After a detailed discussion, we mutually agreed to begin with a home sleep test (WatchPAT). We did discuss potential treatment options, including PAP therapy and the mandibular repositioning appliance. All questions answered to the best of my ability. I did provide Ms. Caceres a copy of my contact information should she have further questions or concerns. documented in this encounter Plan of Treatment Upcoming Encounters Date Type Department Care Team (Latest Contact Info) Description 03/25/2023 10:15 AM [facility] Clinical Communication Virtual Review in [address] [address] 03/26/2023 11:30 AM HAIRSPRING II INSPECTOR Office Visit [facility] in [place], [place] [address] [place] [address] Linden Finley III, M.D. [address] [place] [address] Scheduled Referrals Name Type Priority Associated Diagnoses Orde r Schedule Sleep Medicine office visit (clinic) Outpatient Referral Routine Abnormal Oximetry Expected: 07/23/2022, Expires: 10/24/2023 documented as of this encounter Results * Home sleep apnea [...] in this encounter Visit Diagnoses Diagnosis Abnormal Oximetry- Primary Fatigue Abnormal Oximetry documented in this encounter Additional Health Concerns Assessment Noted Time PHQ-9 Depression Total Score: 6 03/24/19 23 7:22 AM HAIRSPRING II INSPECTOR documented as of this encounter Care Teams Psychologist Military Personnel Relationship Specialty Start Date End Date Elsewhere, Pcp PCP - General Internal Medicine 03/12/22 documented as of this encounter
--- OUTSIDE RECORDS SUMMARY | 2023-03-18 12:02 | XMS_ITS | Encounter Summary ---
Author Name Unknown Organization [facility] Address [address] [place] [address] Care Team Providers Care Garbage Pick Up Man Name Role Phone Elsewhere, Pcp Primary Care Provider Unavailabl e Reason for Referral * Outpatient (Routine) - Authorized Specialty Diagnoses / Procedures Referred By Contmax t Referred To Contact Sleep Medicine Linden Finley III, M.D. [address] [place] [phone] [facility] Referral ID Status Reason Start Date Expiration Date V isits Requested Visits Authorized [id number] Authorized 09/02/2022 09/01/2025 1 1 Encounter Details Date Type Department Care Team (Late st Contact Info) Description 09/02/2022 Orders Only [facility] in [place], [place] [address] [place] [phone] Linden Finley III, M.D. [address] [place] [phone] Social History Tobacco Use Types Packs/Day Years [...] (Latest Contact Info) Description 03/25/2023 10:15 AM HEALTHCARE RECRUITER Clinical Communication Virtual Review in [place], [place] [address] [place] [address] 03/26/2023 11:30 AM HEALTHCARE RECRUITER Office Visit [facility] in [place], [place] [address] [place] [phone] Linden Finley III, M.D. [address] [place] [phone] Scheduled Referrals Name Type Priority Associated Diagnoses Orde r Schedule Sleep Medicine office visit (clinic) Outpatient Referral Routine Expected: 09/02/2022 (Approximate), Expires: 12/04/2023 documented as of this encounter Visit Diagnoses Not on filedocumented in this encounter Additional Health Concerns Assessment Noted Time PHQ-9 Depression Total Score: 6 03/24/19 23 7:22 AM HEALTHCARE RECRUITER documented as of this encounter Care Teams Garbage Pick Up Man Relationship Specialty Start Date End Date Elsewhere, Pcp PCP - General Internal Medicine 03/12/22 documented as of this encounter
--- OUTSIDE RECORDS SUMMARY | 2023-03-18 12:03 | XMS_ITS | Encounter Summary ---
Author Name Unknown Organization [facility] Address [address] [place] [address] Care Team Providers Care Americanization Teacher Name Role Phone Elsewhere, Pcp Primary Care Provider Unavailabl e Reason for Referral * Physical Therapy (Routine) - Authorized Specialty Diagnoses / Procedures Referred By Kourtney crum Referred To Contact Physical Therapy Diagnoses Pain Back Yovany Hidalgo M.D. [address] [place] [phone] Referral ID Status Reason Start Date Expiration Date Visits Requested Visits Authorized [id number] Authorized Patient Preference 03/26/2022 03/26/2023 1 1 ONAL COMPANION * Outpatient (Routine) - Closed Specialty Diagnoses / Procedures Referred By Kourtney crum Referred To Contact Diagnoses Pain Back Procedures EMG Yovany Hidalgo M.D. [address] [place] [phone] [facility] Referral ID Status Reason Start Date Expiration Date Visits Re quested Visits Authorized [id number] Closed 03/26/2022 03/26/2023 1 1 ONAL COMPANION Reason for Visit * Reason Comments Back Pain * Outpatient (Routine) - Closed Specialty Diagnoses / Procedures Referred By Contact Referred To Contact Physical Medicine and Rehabilitation Diagnoses Pain Back Gloria Baez, ETTA, C.N.P., M.S.N. [address] [place] [phone] [facility] Referral ID Status Reason Start Date Expiration Date Visits Re quested Visits Authorized [id number] Closed 03/24/2022 03/24/2023 1 1 Encounter Details Date Type Department Care Team (Latest Contact Info) Description 03/26/2022 2:00 PM PERSONAL COMPANION Comprehensive Visit Department of Physical Medicine and Rehabilitation in [place], [place] [address] [place] [phone] Yovany Hidalgo M.D. [address] [place] [phone] Pain Back Social History Tobacco Use Types Packs/Day Years [...] as of this encounter Consult Notes * Yovany Hidalgo M.D. - 03/26/2022 2:00 PM CST SUBJECTIVE REQUESTING PROVIDER Gloria Baez APRN, C.N.P., M.S.N. REASON FOR CONSULT Low back pain HISTORY OF PRESENT ILLNESS Kandis Caceres is a 56 y.o. female from [place], [place] who presented today for evaluation and rehabilitation recommendations regarding low back pain. She was seen in internal medicine for fatigue, history of anemia, tinnitus, concern of cognitive decline and palpitations. She continues to use tobacco, quarter of a pack per day for 40 years. She was seen in the fibromyalgia Clinic for evaluation of chronic pain, fatigue, and sensory sensitivities. Her presentation was not consistent with fibromyalgia but there is still thought of centralsensitization being a component of her clinical picture. There was concern during her fibromyalgia visit that she was experiencing urinary incontinence. She tells me that she is had intermittent back pain for years but has not been evaluated clinicallyfor this. 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 She describes pain that she points to localize in her midthoracic back on the right and left side. She describes his pain as a tightness and cramping feeling that shelocalizes to the muscles. She tells me that at times when reaching to the side to sit down a package she can have significant cramping pain throughout this thoracic region. She also notes pain that she localizes to the low lumbar back. She notes stiffness to the low back and significant pain when straightening. This pain gets worse on days that she is working on her postal rounds and she notices more pain the longer she is walking and working, carrying her postal bag. She is had workup for her fatigue that included a mildly elevated CK prior to her evaluation here at [facility]. She also brings up multiple symptoms that she already discussed with Internal Medicine including the feeling of pressure in her eyes. 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 She has been told by another provider that she might need a muscle biopsy. Her pain is 9/10 at worst and can be debilitating, limiting her ability to move. She denies pain radiating down her lower limbs. She denies numbness and tingling. For years she is noticed some urinary leakage and urgency but this has gotten worse in the last couple of years. Sometimes she will havesome leakage after she has voided. She denies any groin numbness and denies any bowel incontinence.She denies fevers or chills and her back pain does not get worse at night. 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 She is a single parent and her son is 24 years old. The following portions of the patient's history were reviewed and updated as appropriate: allergies, current medications, family history, medical history, social history, surgical history, and problem list. REVIEW OF SYSTEMS I have briefly reviewed the Review of Systems as noted on the Health history form. I am only responding to those symptoms which are directly relevant to the specific indication for my consultation. Irecommend that the patient follow up with their primary or referring provider to pursue any other symptoms which may be of concern. OBJECTIVE PHYSICAL EXAM There were no vitals taken for this visit. General: Well-developed 56-year-old female in no acute distress. Mental: Grossly oriented with coherent speech. Appropriate mood and affect. Neurologic: Gross Motor: Toe walking and heel walking are normal. Reflexes: Bilateral upper and lower extremity muscle stretch reflexes are physiologic and symmetric. Musculoskeletal: Gait: Gait and station are normal. Balance: Tandem gait was normal. Palpation: There is tenderness to palpation in bilateral thoracic paraspinals and at the left lowerlumbar paraspinals. No significant midline tenderness. No tenderness over bilateral greater trochanters. No significant tenderness over PSIS bilaterally Strength: No atrophy or tone abnormalities noted. Bilateral lower extremity strength is normal and symmetric. Range Of Motion: Hip range of motion reveals normal internal and external range of motion without groin or buttock pain. Lying flat did exacerbate her thoracic back pain. Spine: No gross axial skeletal deformities. Lumbar flexion and lumbar extension were normal and didnot exacerbate her pain Provocative Maneuvers: NIRAV maneuver was negative bilaterally. Lumbar facet loading maneuvers withslight increase in low back pain Skin: No concerning lesions Lymphatic: No lymphadenopathy is appreciated in the involved extremity. Cardiovascular: No lower extremity edema. Respiratory: Breathing is comfortable and regular. DIAGNOSTICS Thoracic and lumbar spine x-rays on 03/25/2022: IMPRESSION: Slight thoracolumbar curve. Mild-moderate lower lumbar facet arthritis. Mild degenerative disc space narrowing in the mid thoracic spine. Thoracic and lumbar spine are otherwise negative. ASSESSMENT / PLAN #1 Pain Back Ms. Caceres is a 56-year-old female referred to Physical Medicine and Rehabilitation for thoracic and lumbar back pain. She is had intermittent pain in these regions for years but over the last yearhas significantly worsened. She notes that walking her baggage and mail agent route gives her more back pain than days when she is off work. She reports a mildly elevated CK in the past in wonders if she needs a muscle biopsy. She is already been seen by Internal Medicine and underwent extensive laboratory workup that included normal sed rate and CRP as well as a normal CK level. Regarding the question of whether she has a myopathy, sheis undergone EMG elsewhere that she tells me was negative. However I did offer EMG here at [facility] as she has been quite concerned about the possibility of muscle damage. The main question with the 3rd signs on EMG for a myopathy and I did ask that her thoracic back be sampled with needle EMG to rule out axial myopathy. Of note I did not see muscle atrophy of her lumbar or thoracic paraspinals and I did not note weakness on manual muscle testing. She had multiple questions about her medical workup. I deferred to Internal Medicine for the workupregarding the pressure behind her eyes. Regarding her urinary incontinence, she describes urgency and urinary leakage but no groin anesthesia, no weakness, no bowel incontinence. Her history and exam is not consistent with cauda equina andwould recommend urologic workup. We discussed chronic back pain and possible pain generators. She does have [id number] facet changes in her low lumbar spine as well as mild disc changes in her thoracic spine. However much of her pain is localized to the musculature her back. We discussed myofascial back pain and treatment options for chronic back pain. Mechanical (axial) back pain The general scheme for treating mechanical or axial low back pain is primarily establishment of a healthy lifestyle. The patient should be counseled in weight loss as appropriate. All patients, regardless of functional status, should be on an exercise program to improve core strength. Low impact aerobics are included as tolerated. This is usually, but not exclusively, accomplished by physical therapy consultation. Activity modifications and work restrictions are advised as needed, but bedrest is to be avoided. Medication: NSAIDs if not otherwise contraindicated Topical NSAIDs or lidocaine Acetaminophen particularly for those who cannot take NSAIDs Modalities: Ice or heat Chiropractic manipulation Massage therapy Acupuncture TENS unit Injections: Facet joint injections (FJIs) Radiofrequency ablations (RFAs) preceded by a trial of medial branch blocks (MBBs) Trigger point injections may be considered if muscle or muscle attachment pain predominates Sacro-iliac joint injections are considered if facet joint injections are unhelpful and there is point tenderness in the region of the sacro-iliac joint(s) Surgery is rarely indicated for strictly axial low back pain except in the cases of instability andsingle level disease. If she did decide to pursue spinal injections she would best be seen by interventional pain medicine. However pain is quite diffuse along the lumbar and thoracic paraspinals and thus a specific pain generator may be difficult to localize. I did recommend a course of physical therapy to work on core and extensor strengthening as well as posture. I gave her prescription for this that she can follow close to home. Patient may return to see me as needed. I will call her once the EMG results are available. EDUCATION We discussed the diagnosis and treatment plan in detail. The patient expressed understanding of thecontent. No apparent learning barriers were identified; learning preferences include listening. Signed by: Rio Hidalgo M.D. 03/27/2022 8:17 AM PERSONAL COMPANION I spent 70 minutes with the patient for this consultation. ONAL COMPANION documented in this encounter Plan of Treatment Upcoming Encounters Date Type Department Care Team (Latest Contact Info) Description 03/25/2023 10:15 AM PERSONAL COMPANION Clinical Communication Virtual Review in [place], [place] [address] [place] [address] 03/26/2023 11:30 AM PERSONAL COMPANION [facility] in [place], [place] [address] [place] [phone] Linden Finley III, M.D. [address] [place] [phone] documented as of this encounter Results * EMG (04/02/2022 2:33 PM PERSONAL COMPANION) 04/02/2022 2:30 PM PERSONAL COMPANION Narrative [facility] EMG - 04/03/2022 7:14 AM PERSONAL COMPANION Table formatting from the original result was not included. 02-Apr-2022 ? Electromyography ? Final Report Study Number: 1 EMG Entry Level Management: Rubina Gonzalez 127 or [phone] Referred by: YOVANY HIDALGO (127 or [phone]) Referred for: Back pain Referral Code: ?100 RX: 001 SUMMARY: Prior to starting the procedure, the patient's identity was verified, pertinent available records were reviewed, the nature of the procedure was explained, the appropriate sites of the exam were confirmed directly with the patient, and a pre-procedure pause was performed for final verification of all of the above. ?? Nerve conduction studies demonstrated reduced amplitude of the right tibial compound muscle action potential. Needle examination of right upper and lower limbs and thoracic paraspinals was normal. ??There were no fibrillation potentials observed. CLINICAL INTERPRETATION: There is no electrodiagnostic evidence of a myopathic process. ??The reduced amplitude of the right tibial motor response is of unclear clinical significance and may be due to technical or local factors. ?? Ngozi Gonzalez (127 or [phone])/[facility] NERVE CONDUCTIONS ??Record Rep ?? Normal ??Normal Distal Normal F-Wave F-Wave Temp Nerve Type Site Stim Side Amp Amp CV CV Lat Lat Lat Est (??C) Fibular Motor EDB ??R 2.2 (> 2.0) 48 (> 41) 4.3 (< 6.6) ?? 32.8 Tibial Motor AH ??L 4.4 (> 4.0) 45 (> 40) 3.4 (< 6.1) ?? 32.0 Tibial Motor AH ??R 2.4 (> 4.0) 46 (> 40) 3.5 (< 6.1) ?? 32.9 Sural Sensory Ankle ??R 8 (> 6.0) ??(> 40) 3.3 (< 4.5) ?? 32.8 NEEDLE EMG ??Ins Spont ??MUP ??Recruitment ??Duration ??Amplitude ??Phases ?? Muscle Side Act Fib Fasc Normal Activ Reduced Rapid Long Short High Low % Turns First dorsal interosseous R NL 0 0 NL ? Biceps brachii R NL 0 0 NL ? +/- ??+/- ?? Deltoid R NL 0 0 NL ? Triceps brachii R NL 0 0 NL ? Infraspinatus R NL 0 0 NL ? Thoracic paraspinals R NL 0 0 NL ? Comment: T4, T8 Tensor fasciae latae R NL 0 0 NL ? Vastus lateralis R NL 0 0 NL ? Gastrocnemius (medial head) R NL 0 0 NL ? Tibialis anterior R NL 0 0 NL ? This interpretation has been electronically signed: Rubina Gonzalez MD at 04/02/2022 4:57:22 PM PERSONAL COMPANION Procedure Note Rubina Gonzalez M.D. - 04/03/2022 02-Apr-2022 Electromyography Final Report Study Number: 1 EMG Entry Level Management: Rubina Gonzalez. 127 or [phone] Referred by: YOVANY HIDALGO (127 or [phone]) Referred for: Back pain Referral Code: 100 RX: 001 SUMMARY: Prior to starting the procedure, the patient's identity wasverified, pertinent available records were reviewed, the nature of the procedure was explained, theappropriate sites of the exam were confirmed directly with the patient, and a pre-procedure pausewas performed for final verification of all of the above. Nerve conduction studies demonstrated reduced amplitude of the right tibial compound muscle action potential. Needle examination of right upper and lower limbs and thoracic paraspinals was normal. Therewere no fibrillation potentials observed. CLINICAL INTERPRETATION: There is no electrodiagnostic evidence of amyopathic process. The reduced amplitude of the right tibial motor response is of unclearclinical significance and may be due to technical or local factors. Ngozi Gonzalez (127 or [phone])/[facility] NERVE CONDUCTIONS Record Rep Normal Normal Distal Normal F-Wave F-Wave Temp Nerve Type Site Stim Side Amp Amp CV CV Lat Lat Lat Est (??C) Fibular Motor EDB R 2.2 (> 2.0) 48 (> 41) 4.3 (< 6.6) 32.8 Tibial Motor AH L 4.4 (> 4.0) 45 (> 40) 3.4 (< 6.1) 32.0 Tibial Motor AH R 2.4 (> 4.0) 46 (> 40) 3.5 (< 6.1) 32.9 Sural Sensory Ankle R 8 (> 6.0) (> 40) 3.3 (< 4.5) 32.8 NEEDLE EMG Ins Spont MUP Recruitment Duration Amplitude Phases Muscle Side Act Fib Fasc Normal Activ Reduced Rapid Long Short High Low %Turns First dorsal interosseous R NL 0 0 NL Biceps brachii R NL 0 0 NL +/- +/- Deltoid R NL 0 0 NL Triceps brachii R NL 0 0 NL Infraspinatus R NL 0 0 NL Thoracic paraspinals R NL 0 0 NL Comment: T4, T8 Tensor fasciae latae R NL 0 0 NL Vastus lateralis R NL 0 0 NL Gastrocnemius (medial head) R NL 0 0 NL Tibialis anterior R NL 0 0 NL This interpretation has been electronically signed: MarianneT. Gonzalez MD at 04/02/2022 4:57:22 PM PERSONAL COMPANION Yovany Hidalgo M.D. NEUROLOGY ORDERAB LES EMG documented in this encounter Visit Diagnoses Diagnosis Pain Back Pain Back documented in this encounter Additional Health Concerns Assessment Noted Time PHQ-9 Depression Total Score: 6 03/24/19 23 7:22 AM PERSONAL COMPANION documented as of this encounter Care Teams Americanization Teacher Relationship Specialty Start Date End Date Elsewhere, Pcp PCP - General Internal Medicine 03/12/22 documented as of this encounter
--- OUTSIDE RECORDS SUMMARY | 2023-03-18 12:03 | XMS_ITS | Encounter Summary ---
Author Name Unknown Organization [facility] Address [address] [place] [address] Care Team Providers Care Technical Healthcare Consultant Name Role Phone Elsewhere, Pcp Primary Care Provider Unavailabl e Reason for Referral * Outpatient (Routine) - Closed Specialty Diagnoses / Procedures Referred By Contac t Referred To Contact Diagnoses Pain Back Procedures DX Thoracic Spine 2 Views Gloria Baez APRN, C.NCyndi, M.S.N. [address] [place] [phone] [facility] Referral ID Status Reason Start Date Expiration Date Visits Re quested Visits Authorized [id number] Closed 03/24/2022 03/24/2023 1 1 NELER OUTSOLE * Outpatient (Routine) - Closed Specialty Diagnoses / Procedures Referred By Contac t Referred To Contact Diagnoses Pain Back Procedures DX Lumbar Spine 2-3 Views Gloria Baez APRN, C.NCyndi, M.S.N. [address] [place] [phone] [facility] Referral ID Status Reason Start Date Expiration Date Visits Re quested Visits Authorized [id number] Closed 03/24/2022 03/24/2023 1 1 NELER OUTSOLE Reason for Visit * Outpatient (Routine) - Closed Specialty Diagnoses / Procedures Referred By Contac t Referred To Contact Diagnoses Pain Back Procedures DX Thoracic Spine 2 Views Gloria Baez APRN, C.NCyndi, M.S.N. [address] [place] [phone] [facility] Referral ID Status Reason Start Date Expiration Date Visits Re quested Visits Authorized [id number] Closed 03/24/2022 03/24/2023 1 1 Encounter Details Date Type Department Care Team (Latest Contact Info) Description 03/25/2022 1:27 PM CHANNELER OUTSOLE - 03/25/2022 11:59 PM CHANNELER OUTSOLE Hospital Encounter Department of Radiology, [facility], in [place], [place] [address] [place] [phone] Gloria Baez, HEAD OF PARTNER DEVELOPMENT, C.N.P., M.S.N. [address] [place] [phone] Pain Back Discharge Disposition: Home or Self Care Social [...] (Latest Contact Info) Description 03/25/2023 10:15 AM CHANNELER OUTSOLE Clinical Communication Virtual Review in [place], [place] [address] [place] [address] 03/26/2023 11:30 AM CHANNELER OUTSOLE Office Visit [facility] in [place], [place] [address] [place] [phone] Linden Finley III, M.D. [address] [place] [phone] documented as of this encounter Procedures Procedure Name Priority Date/Time Associated Diagnosis Comments DX LUMBAR SPINE 2-3 VIEWS RAD - Routine (most inpatients and all outpatients) 03/25/2022 1:49 PM CHANNELER OUTSOLE Pain Back DX THORACIC SPINE 2 VIEWS RAD - Routine (most inpatients and all outpatients) 03/25/2022 1:49 PM CHANNELER OUTSOLE Pain Back documented in this encounter Results * DX Thoracic Spine 2 Views (03/25/2022 1:49 PM CHANNELER OUTSOLE) Anatomical Region Laterality Modality Thoracic Spine, Musculoskele garrett RST LOS, Neuroradiology ARZ LOS, Muskuloskeletal FLA LOS N/A Digita l Radiography 03/25/2022 1:50 PM CHANNELER OUTSOLE Impressions 03/25/2022 1:52 PM CHANNELER OUTSOLE Slight thoracolumbar curve. Mild-moderate lower lumbar facet arthritis. Mild degenerative disc space narrowing in the mid thoracic spine. Thoracic and lumbar spine are otherwise negative. Narrative 03/25/2022 1:52 PM CHANNELER OUTSOLE EXAM: ??DX LUMBAR SPINE 2-3 VIEWS, DX THORACIC SPINE 2 VIEWS Procedure Note Alisia Chavez M.D. - 03/25/2022 EXAM: DX LUMBAR SPINE 2-3 VIEWS, DX THORACIC SPINE 2 VIEWS IMPRESSION: Slight thoracolumbar curve. Mild-moderate lower lumbar facet arthritis.Mild degenerative disc space narrowing in the mid thoracic spine. Thoracic andlumbar spine are otherwise negative. Gloria Baez APRN, C.N.P., M.S.N. IMG DIAGNOSTIC IMAGING PROCEDURES * DX Lumbar Spine 2-3 Views (03/25/2022 1:49 PM CHANNELER OUTSOLE) Anatomical Region Laterality Modality Lumbar Spine, Musculoskeleta l RST LOS, Neuroradiology ARZ LOS, Muskuloskeletal FLA LOS N/A Digital Radiography 03/25/2022 1:50 PM CHANNELER OUTSOLE Impressions 03/25/2022 1:52 PM CHANNELER OUTSOLE Slight thoracolumbar curve. Mild-moderate lower lumbar facet arthritis. Mild degenerative disc space narrowing in the mid thoracic spine. Thoracic and lumbar spine are otherwise negative. Narrative 03/25/2022 1:52 PM CHANNELER OUTSOLE EXAM: ??DX LUMBAR SPINE 2-3 VIEWS, DX THORACIC SPINE 2 VIEWS Procedure Note Alsiia Chavez M.D. - 03/25/2022 EXAM: DX LUMBAR SPINE 2-3 VIEWS, DX THORACIC SPINE 2 VIEWS IMPRESSION: Slight thoracolumbar curve. Mild-moderate lower lumbar facet arthritis.Mild degenerative disc space narrowing in the mid thoracic spine. Thoracic andlumbar spine are otherwise negative. Gloria Baez APRN, C.N.P., M.S.N. IMG DIAGNOSTIC IMAGING PROCEDURES documented in this encounter Visit Diagnoses Diagnosis Pain Back documented in this encounter Additional Health Concerns Assessment Noted Time PHQ-9 Depression Total Score: 6 03/24/19 23 7:22 AM CHANNELER OUTSOLE documented as of this encounter Care Teams Technical Healthcare Consultant Relationship Specialty Start Date End Date Elsewhere, Pcp PCP - General Internal Medicine 03/12/22 documented as of this encounter
--- OUTSIDE RECORDS SUMMARY | 2023-03-18 12:03 | XMS_ITS | Encounter Summary ---
Author Name Unknown Organization [facility] Address [address] [place] [address] Care Team Providers Care Syrup Mixer Name Role Phone Elsewhere, Pcp Primary Care Provider Unavailabl e Reason for Visit * Reason Comments Fatigue Encounter Details Date Type Department Care Team (Late st Contact Info) Description 03/24/2022 7:30 AM DOOR GLASS INSTALLER Nurse Only [facility] in [place], [place] [address] [place] [address] Nadine Centeno M.A., R.N. [address] [place] [phone] Fatigue Social History Tobacco Use Types Packs/Day [...] as of this encounter Progress Notes * Nadine Centeno M.A., R.N. - 03/24/2022 7:30 AM CST SUBJECTIVE CHIEF COMPLAINT / REASON FOR VISIT Ms. Caceres is a 56 y.o. female who is alone and who presents with chronic pain, fatigue, and unrefreshing sleep. This note is in collaboration with Gloria Baez APRN, C.N.P., M.S. N. HISTORY OF PRESENT ILLNESS Kandis reports a gradual onset of fatigue. She also states she has had heart palpitations, back pain,tremors, difficulty with bladder control, eyes feeling like golf balls or bulging, and tinnitus. Associated factors related to onset of symptoms may include prolonged work stress and prolonged personal stress. 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 Sheshares that her father was terminally ill and her new supervisor electric wouldn't allow her time off of work to visit him until his final days in August 2020 when he . She also shares that while at work she was yelled at for getting a flat tire. Kandis states that her family is used to stress. PAIN Kandis has had complaints of pain in the past 7 days. She reports pain in these areas: lower leg, left, lower leg, right , upper back, and lower back. Pain has been present on both sides of the body and above and below the waist over the past 5 years. The pain is described as intermittent with variable intensity including muscle spasms. Patient describes her pain level on a scale of 0-10 (with 10 being the worst pain imaginable and 0 being no pain) as a fluctuating pain dependent on her activity and movements. Her pains worsen with activity and work. FATIGUE Kandis recalls fatigue beginning around 2020 or sooner. She describes her fatigue as present for 6 months or more, results in substantial reduction or impairment in the ability to engage in pre-illness levels of occupational, educational, social or personal activities, it is not substantially relieved by rest, is of new onset (not lifelong), does include orthostatic intolerance, and includes cognitive impairment. Patient reports the degree of fatigue in the past week as moderate-severe. OTHER FIBROMYALGIA OR CHRONIC FATIGUE ASSOCIATED SYMPTOMS The patient reports additional symptoms frequently experienced in the past 6 months: depressed mood, difficulty falling asleep and staying asleep, muscle weakness, palpitations, blurred vision , and ringing in the ears. SLEEP Patient has difficulties with sleep and reports unrefreshing sleep (reports severity as severe in the past week) . Patient reports averaging 6.5 hours of sleep nightly and naps on days off during. Patient has never had a sleep disorder consult. When she sees a peek of sunlight she feels like it is time to get up and work. MEMORY Patient reports difficulty with memory or concentration. Memory issues include problems with short term memory, difficulty concentrating, difficulty organizing thoughts, and feelings of mental fogginess. Patient reports severity of cognitive symptoms of the past 7 days as moderate -severe. MOOD Patient reports current stressors: work, finances, losing her father. 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 In December she was put back on 8 hour days, instead of OT, and shares that it is hard to work 8 hours. OBJECTIVE PHYSICAL EXAM Refer to [facility] for mood assessment. The patient has the following 2016 ACR Fibromyalgia criteria: Widespread Pain Index (0-19): 4 Number of Pain Regions (0-5): 3 Severity score (0-12): 9 Symptoms have been present at a similar level for at least 3 months. The patient reports the following Chronic Fatigue criteria: substantial decrease in function, persisting more than or equal to 6 months, post-exertional malaise, unrefreshing sleep, and cognitive impairments ASSESSMENT / PLAN For diagnosis and treatment plan refer to provider's note. NURSING DIAGNOSIS:Chronic Pain and Fatigue GLASS INSTALLER documented in this encounter Plan of Treatment Upcoming Encounters Date Type Department Care Team (Latest Contact Info) Description 03/25/2023 10:15 AM DOOR GLASS INSTALLER Clinical Communication Virtual Review in [address] [address] 03/26/2023 11:30 AM DOOR GLASS INSTALLER Office Visit [facility] in [address] [phone] Linden Finley III, M.D. [address] [place] [phone] documented as of this encounter Visit Diagnoses Not on filedocumented in this encounter Additional Health Concerns Assessment Noted Time PHQ-9 Depression Total Score: 6 03/24/19 23 7:22 AM DOOR GLASS INSTALLER documented as of this encounter Care Teams Syrup Mixer Relationship Specialty Start Date End Date Elsewhere, Pcp PCP - General Internal Medicine 03/12/22 documented as of this encounter
--- OUTSIDE RECORDS SUMMARY | 2023-03-18 12:03 | XMS_ITS | Clinical Summary ---
Author Name Unknown Organization [facility] Address [address] [place] [address] Care Team Providers Care Golf Course Manager Name Role Phone Damaso Laguerre MD Primary Care Provider [phone] Soila Beasley PA-C Unavailable [phone] Allergies Active Allergy Reactions Criticality Noted Date Comments Ciprofloxacin 08/22/2021 Medications Medication Sig Dispensed Refills Start Date End Date Status ferrous sulfate (FEROSUL) 325 (65 Fe) MG tablet Take 325 mg by mouth daily as needed 0 Active Social History Tobacco Use Types Packs/Day Years Used Date Smoking Tobacco: Never Assessed Adolescent Education Answer Date Record ed Getting School Help Needed Not on file 12/07 Sex and Gender Information Value Date Recorded Sex Assigned at Not on file Gender Identity Not on file Sexual Orientation Not on file Last Filed Vital Signs Vital Sign Reading Time Taken Comments Blood Pressure 112/58 08/22/2021 9:06 AM CDT Pulse 73 08/22/2021 9:06 AM CDT Temperature 36.5 ??C (97.7 ??F) 04/16/2017 5:44 PM CS T Respiratory Rate 21 04/16/2017 7:45 PM ABRASIVE WATER JET CUTTER OPERATOR Oxygen Saturation 97% 08/22/2021 9:06 AM CDT Inhaled Oxygen Concentration - - Weight 85 kg (187 lb 4.8 oz) 08/22/2021 9:06 AM CDT Height 168.9 cm (5' 6.5) 08/22/2021 9:06 AM CDT Body Mass Index 29.78 08/22/2021 9:06 AM CDT Plan of Treatment Health Maintenance Due Date Last Done Comments ADVANCE CARE PLANNING 1966 ANNUAL REVIEW OF HM ORDERS 1966 CT COLONOGRAPHY 1966 FIT 1966 FLEX SIG 1966 YEARLY PREVENTIVE VISIT 1966 sDNA (Cologuard) 1966 COVID-19 Vaccine (#1) 1966 COLONOSCOPY 1976 COLORECTAL CANCER SCREENING 1976 HIV SCREENING 1981 HEPATITIS C SCREENING 1984 LIPID 05/13/2011 ZOSTER IMMUNIZATION (1 of 2) 2016 DTAP/TDAP/TD IMMUNIZATION (2 - Td or Tdap) 09/17/2016 09/17/2006 INFLUENZA VACCINE (#1) 2022 1, 03/25/2010, 01/24/2008 PHQ-2 (once per calendar year) 2023 MAMMO SCREENING 04/25/2023 04/25/2021 PAP 10/30/2023 10/29/2020, 10/29/2020 HEPATITIS B IMMUNIZATION Completed 996, 02/23/1996, 11/17/1995, Additional history exists HPV IMMUNIZATION Aged Out No longer e ligible based on patient's age to complete this topic IPV IMMUNIZATION Aged Out No longer e ligible based on patient's age to complete this topic MENINGITIS IMMUNIZATION Aged Out No l onger eligible based on patient's age to complete this topic Pneumococcal Vaccine: Pediatrics (0 to 5 Years) and At-Risk Patients (6 to 64 Years) Aged Out No longer eligible based on patient's age to complete this topic RSV MONOCLONAL ANTIBODY Aged Out No l onger eligible based on patient's age to complete this topic Care Teams Golf Course Manager Relationship Specialty Start Date End Date Damaso Laguerre MD [facility] [address] [place] [address] PCP - General Family Practice 03/11/11 Soila Beasley PA-C [facility] [address] [place] [address] Physician Straight Slicing Machine Operator Physician Straight Slicing Machine Operator 07/09/21
--- OUTSIDE RECORDS SUMMARY | 2023-03-18 12:03 | XMS_ITS | Clinical Summary ---
Author Name Unknown Organization [facility] Address [place], [place] [address] Care Team Providers Care Manufacturing Assembler Name Role Phone Soila Beasley PA-C Primary Care Provider [phone] Allergies Active Allergy Reactions Criticality Noted Date Comments Adhesive Tape-Silicones Erythema Low 09/11/2017 Patient had a mild rash after having Tegaderm removed. Medications Medication Sig Dispensed Refills Start Date End Date Status albuterol HFA (PRO-AIR,VENTOLIN,PRO VENTIL) 90 mcg/actuation inhaler Inhale 2 Puffs by mouth every 4 hours while awake. 1 Inhaler 0 02/27/2014 Active Active Problems Problem Noted Date Diagnosed Date Smoker 02/27/2014 Encounters Date Type Department Care Team Description 03/12/2023 Lab Requisition [facility] [phone] Soila Beasley PA-C from Last 3 Months Immunizations Name Administration Dates Next Due Hepatitis B (Adult) 02/23/1996,11/17/1995,1995 Influenza, IIV3 (Age >=3 years) 02/03/2011,03/25,01/24/2008 Tdap 09/17/2006 Family History Medical History Relation Name Comments Cancer-breast No Family History Social History Tobacco Use Types Packs/Day Years Used Date Smoking Tobacco: Every Day Cigarettes Cigars Smokeless Tobacco: Never Tobacco Cessation:Ready to Q uit: Yes; Counseling Given: Yes Alcohol Use Standard Drinks/Week Comments Not Asked 0 (1 standard drink = 0.6 oz pur e alcohol) Sex and Gender Information Value Date Recorded Sex Assigned at Not on file Gender Identity Not on file Sexual Orientation Not on file Obstetrics History Para Term AB IAB SAB Ectopic Multiple Livin g Live Births 1 1 1 1 Date Outcome GA Total Labor Labor/2nd/3rd Weight Sex Delivery Anes PTL Karime A1 A5 Name Cl in Term Last Filed Vital Signs Vital Sign Reading Time Taken Comments Blood Pressure 118/72 05/14/2018 3:26 PM AFFILIATE MANAGER Pulse 83 05/14/2018 3:26 PM AFFILIATE MANAGER Temperature 36.8 ??C (98.2 ??F) 05/14/2018 3:26 PM CS T Respiratory Rate 16 07/25/2017 4:44 PM CDT Oxygen Saturation 97% 05/14/2018 3:26 PM AFFILIATE MANAGER Inhaled Oxygen Concentration - - Weight 82.4 kg (181 lb 11.2 oz) 05/14/2018 3:26 PM AFFILIATE MANAGER Height - - Body Mass Index - - Plan of Treatment Health Maintenance Due Date Last Done Comments COVID-19 vaccine series (#1) 1966 Depression screening for age 12+ 1978 HIV for age 15-65 1981 BMI (ht and wt on same day) for age 18+ 1984 Hepatitis C screening for ag e 18-79 1984 Colonoscopy through age 75 05/13/2011 Lipids for age 45-75 05/13/2011 Zoster (shingles) series for age 50+ (1 of 2) 2016 Tetanus booster 09/17/2016 09/17/2006 Mammogram for age 45-75 04/25/2022 04/25/19, 09/10/2012, 08/23/2012 Influenza for age 50-64 11/07/2022 02/04/20 11, 03/25/2010, 01/24/2008 Pap test for age 21-65 10/30/2023 1, 10/29/2020 Tdap Completed 09/17/2006 Pneumococcal series for age 6-64 Aged Out No longer eligible b ased on patient's age to complete this topic Procedures Procedure Name Priority Date/Time Associated Diagnosis Comments LAB TRACKING EVENT Routine 03/12/2023 9: 22 AM AFFILIATE MANAGER PERIPHERAL BLD MORPHOLOGY Routine 03/12/2023 9:22 AM AFFILIATE MANAGER RETICULOCYTES Routine 03/12/2023 9:22 AM AFFILIATE MANAGER from Last 3 Months Results * LAB TRACKING EVENT (03/12/2023 9:22 AM AFFILIATE MANAGER) Other (Other) Client Collect / Unknown 03/12/2023 9:22 AM AFFILIATE MANAGER 03/12/2023 3:31 PM AFFILIATE MANAGER Soila Beasley PA-C LAB BILL ONLY [facility] LABORATORY [address] [place] [address], * PERIPHERAL BLD MORPHOLOGY (03/12/2023 9:22 AM AFFILIATE MANAGER) Case Report Special Hematology Report ? Case: [id number] ? Authorizing Provider: ??Soila Beasley PA-C ?Collected: ? 03/12/2023921 ? Ordering Location: ? [facility] ?Received: ?03/12/2023 1801 ? Pathologist: ? Sage Rogers, ? MD ? Specimen: ?Peripheral Blood ? 03/13/2023 11:09 AM [facility] [employer] LABORATORY-C ENTRAL LABORATORY Final Diagnosis PERIPHERAL BLOOD: Within normal limits 03/13/2023 11:09 AM [facility] [employer] Comment At the time of this evaluation, the hemoglobin value is normal. The CBC/DIFF and peripheral smear morphology are within normal limits. There are no atypical features noted. Clinical correlation is recommended. This case was also reviewed by Liliya Simon MT, ([facility]). 03/13/2023 11:09 AM [facility] [employer] LABORATORY-C ENTRAL LABORATORY Clinical Information The patient is a 57-year-old female. Pertinent clinical information: Anemia and small IgG kappa monoclonal protein. Peripheral blood morphology 2020 ([id number]) was within normal limits. 03/13/2023 11:09 AM [facility] [employer] LABORATORY-C ENTRAL LABORATORY CBC and Differential HEMATOLOGY PARAMETERS Tested at: ??[facility] ? RESULTS ??EXPECTED VALUES WBC: ? 4.7 ?4.5-92z8824/cu mm ? RBC: ? 3.92 ? 4.00-5.20 mil/cumm ??DECREASED HGB: ? 12.1 ? 12-16 gm/dl ? HCT: ? 36.8 ? 33-51% ? MCV: ? 93.9 ? 80-100 fl ? NORMOCYTIC MCH: ? 30.9 ? 26-34 pg ? MCHC: ?32.9 ? 32-36 gm/dl ? NORMOCHROMIC PLT: ? 316 ?140-947s1421/u L ? Retic: ?? 1.0 ?0.5-1.5% ? Differential ?Absolute (%) ?Expected (%) ?(x10*9/L) ? (x10*9/L) Neutrophils: ?2.13 (45.5) ? 1.7-7.0 (42-72%) ? Lymphocytes: ?2.11 (45.1) ? 0.9-2.9 (20-44%) ?? Monocytes: ?0.3 (6.4) ?<0.9 (0-11%) ? Eosinophils: ?0.12 (2.6) ? <0.5 (0-2%) ? Basophils: ?0.02 (.4) ?<0.3 (<3.0%) ? 03/13/2023 11:09 AM [facility] [employer] LABORATORY-[facility] Microscopic Description The final diagnosis is based on microscopic examination of an appropriately stained blood smear. 03/13/2023 11:09 AM [facility] [employer] LABORATORY-C ENTRMA LABORATORY Additional Information Interpreted at [facility] [employer] [facility], Central Laboratory - [address], [place] [address] 03/13/2023 11:09 AM [facility] [employer] [facility] LABORATORY Blood (Peripheral Blood) 03/12/2023 9:22 AM AFFILIATE MANAGER 03/12/2023 6:01 PM AFFILIATE MANAGER Soila Beasley PA-C HEMATOLOGY [facility]ORATORY [address] [place] [id number], [place] * RETICULOCYTES (03/12/2023 9:22 AM AFFILIATE MANAGER) RETIC% 1.0 0.5 - 1.5 % 03/12/2023 3:46 PM AFFILIATE MANAGER [facility] LABORATORY RETIC (ABSOLUTE) 0.04 0.03 - 0.08 mil/cu mm 03/12/2023 3:46 PM AFFILIATE MANAGER [facility] LAB[facility] Blood BLOOD SPECIMEN / Unknown Client Collect / Unknown 03/12/2023 9:22 AM AFFILIATE MANAGER 03/12/2023 3:36 PM AFFILIATE MANAGER Soila Beasley PA-C HEMATOLOGY [facility] [address] [place] [id number], [place] from Last 3 Months Care Teams Manufacturing Assembler Relationship Specialty Start Date End Date Soila Beasley PA-C [address] [place] [address] PCP - General Emergency Medicine 04/15/21
--- OUTSIDE RECORDS SUMMARY | 2023-03-18 12:03 | XMS_ITS | Encounter Summary ---
Author Name Unknown Organization [facility] Address [address] [place] [id number] Care Team Providers Care Parts Coordinator Name Role Phone Elsewhere, Pcp Primary Care Provider Unavailabl e Reason for Visit * Reason Comments Phone Contact Encounter Details Date Type Department Care Team (Latest Contact Info) Description 03/24/2022 Clinical Communication Department of Cardiovascular Medicine in [place], [place] [address] [place] [phone] Aisha Cadet M.B., B.Ch. [address] [place] [phone] Phone Contact Social History Tobacco Use Types Packs/Day Years [...] (Latest Contact Info) Description 03/25/2023 10:15 AM PHYSICAL THERAPY ASST Clinical Communication Virtual Review in [place], [place] [address] [place] [address] 03/26/2023 11:30 AM PHYSICAL THERAPY ASST Office Visit [facility] in [place], [place] [address] [place] [phone] Linden Finley III, M.D. [address] [place] [phone] documented as of this encounter Visit Diagnoses Not on filedocumented in this encounter Additional Health Concerns Assessment Noted Time PHQ-9 Depression Total Score: 6 03/24/19 23 7:22 AM PHYSICAL THERAPY ASST documented as of this encounter Care Teams Parts Coordinator Relationship Specialty Start Date End Date Elsewhere, Pcp PCP - General Internal Medicine 03/12/22 documented as of this encounter
--- OUTSIDE RECORDS SUMMARY | 2023-03-18 12:03 | XMS_ITS | Encounter Summary ---
Author Name Unknown Organization [facility] Address [address] [place] [address] Care Team Providers Care Fast Food Supervisor Name Role Phone Elsewhere, Pcp Primary Care Provider Unavailabl e Reason for Referral * Outpatient (Routine) - Authorized Specialty Diagnoses / Procedures Referred By Kourtney t Referred To Contact Diagnoses Palpitations Procedures ECG Heart Rhythm Monitor (Holter) Tracey Bourne M.D. [address] [place] [phone] [facility] Referral ID Status Reason Start Date Expiration Date V isits Requested Visits Authorized [id number] Authorized 03/26/2022 03/26/2023 1 1 NTOLOGIST Reason for Visit * Outpatient (Routine) - Authorized Specialty Diagnoses / Procedures Referred By Kourtney crum Referred To Contact Diagnoses Palpitations Procedures ECG Heart Rhythm Monitor (Holter) Tracey Bourne M.D. 200 [place] [phone] [facility] Referral ID Status Reason Start Date Expiration Date V isits Requested Visits Authorized [id number] Authorized 03/26/2022 03/26/2023 1 1 Encounter Details Date Type Department Care Team (Latest Contact Info) Description 04/02/2022 2:00 PM SCIENTOLOGIST - 04/02/2022 2:29 PM SCIENTOLOGIST Hospital Encounter Department of Cardiovascular Diseases in [place], [place] [address] [place] [phone] Tracey Bourne M.D. [address] [place] [phone] Palpitations Discharge Disposition: Home or Self Care Social [...] (Latest Contact Info) Description 03/25/2023 10:15 AM SCIENTOLOGIST Clinical Communication Virtual Review in [place], [place] 200 [place] [address] 03/26/2023 11:30 AM SCIENTOLOGIST Office Visit [facility] in [place], [place] [address] [place] [phone] Linden Finley III, M.D. [address] [place] [phone] documented as of this encounter Procedures Procedure Name Priority Date/Time Associated Diagnosis Comments HOLTER MONITOR - IN CLINIC PLATE FURNACE OPERATOR Routine 04/03/2022 12:15 AM SCIENTOLOGIST Palpitations documented in this encounter Results * HOLTER MONITOR - IN CLINIC PLATE FURNACE OPERATOR (04/03/2022 12:15 AM SCIENTOLOGIST) Min Heart Rate 56 bpm INFOB IONIC MOME Max Heart Rate 107 bpm INFOB IONIC MOME Mean Heart Rate 72 bpm INFOBIONIC MOME VE Total Beats 0 count INFOB IONIC MOME VE Percent Beats less than 1 percent INFOBIONIC MOME SVE Total Beats 62 count INFOBIONIC MOME SVE Percent Beats less than 1 percent INFOBIONIC MOME AF Count 0 count INFOBIONIC MOME AF Duration 0 duration INFOBION IC MOME AF [place] 0 percent INFOBIONIC MOME Symptom Count 0 count INFOBI ONIC MOME 04/02/2022 2:14 PM SCIENTOLOGIST Narrative RAQUEL JOYNER - 04/04/2022 10:33 AM SCIENTOLOGIST Eva 1. The basic rhythm was sinus. Poor data quality was present and made analysis difficult. The total analyzed time was 19h 13m. The heart rate varied from 56 to 107 bpm. The average HR was 72 bpm. 2. No premature ventricular complexes were noted. 3. Premature supraventricular complexes were noted singly, in one pair and in one 8 beat atrial run at 144 bpm. There were 62 PACs recorded with a PAC burden of less than 1%. 4. No symptomatic events were recorded. Associate Consulting Engineer: Enma Jason A Holter monitor with cascade to extended monitoring was ordered for the indication of suspected tachyarrhythmia. During the Holter monitoring period, the patient did not experience have VT >=110bpm or SVT >=140bpm for >=30 beats or AF >=30 seconds. Therefore, the study was cascaded to extended monitoring. Procedure Note Cr Lai M.D., Ph.D. - 04/04/2022 Eva 1. The basic rhythm was sinus. Poor data quality was present and madeanalysis difficult. The total analyzed time was 19h 13m. The heart ratevaried from 56 to 107 bpm. The average HR was 72 bpm. 2. No premature ventricular complexes were noted. 3. Premature supraventricular complexes were noted singly, in one pair andin one 8 beat atrial run at 144 bpm. There were 62 PACs recorded with aPAC burden of less than 1%. 4. No symptomatic events were recorded. Associate Consulting Engineer: Enma Jason A Holter monitor with cascade to extended monitoring was ordered for theindication of suspected tachyarrhythmia. During the Holter monitoringperiod, the patient did not experience have VT >=110bpm or SVT >=140bpmfor >=30 beats or AF >=30 seconds. Therefore, the study was cascaded to extended monitoring. Tracey Harris M.D. CV CARDIAC SERVIC ES PROCEDURES RAQUEL JOYNER NA documented in this encounter Visit Diagnoses Diagnosis Palpitations documented in this encounter Additional Health Concerns Assessment Noted Time PHQ-9 Depression Total Score: 6 03/24/19 23 7:22 AM SCIENTOLOGIST documented as of this encounter Care Teams Fast Food Supervisor Relationship Specialty Start Date End Date Elsewhere, Pcp PCP - General Internal Medicine 03/12/22 documented as of this encounter
--- OUTSIDE RECORDS SUMMARY | 2023-03-18 12:03 | XMS_ITS | Encounter Summary ---
Author Name Unknown Organization [facility] Address [address] [place] [address] Care Team Providers Care Tube Building Machine Operator Name Role Phone Elsewhere, Pcp Primary Care Provider Unavailabl e Reason for Referral * Outpatient (Routine) - Closed Specialty Diagnoses / Procedures Referred By Kourtney crum Referred To Contact Diagnoses Pain Back Procedures DX Thoracic Spine 2 Views Gloria Baez APRN, C.N.P., M.S.N. [address] [place] [phone] [facility] Referral ID Status Reason Start Date Expiration Date Visits Re quested Visits Authorized [id number] Closed 03/24/2022 03/24/2023 1 1 INED RAILWAY OPERATOR * Outpatient (Routine) - Closed Specialty Diagnoses / Procedures Referred By Contac t Referred To Contact Diagnoses Pain Back Procedures DX Lumbar Spine 2-3 Views Gloria Baez APRN, C.N.P., M.S.N. [address] [place] [phone] [facility] Referral ID Status Reason Start Date Expiration Date Visits Re quested Visits Authorized [id number] Closed 03/24/2022 03/24/2023 1 1 INED RAILWAY OPERATOR * Outpatient (Routine) - Closed Specialty Diagnoses / Procedures Referred By Contact Referred To Contact Physical Medicine and Rehabilitation Diagnoses Pain Back Gloria Baez APRN, C.NCyndi, M.S.N. [address] [place] [phone] [facility] Referral ID Status Reason Start Date Expiration Date Visits Re quested Visits Authorized [id number] Closed 03/24/2022 03/24/2023 1 1 INED RAILWAY OPERATOR Reason for Visit * Outpatient (Routine) - Closed Specialty Diagnoses / Procedures Referred By Kourtney crum Referred To Contact Integrative Medicine Diagnoses Myalgic Encephalomyelitis/Chron ic Fatigue Syndrome Larissa Beckham M.D., M.H.A. [address] [place] [address] [facility] Referral ID Status Reason Start Date Expiration Date Visits Re quested Visits Authorized [id number] Closed 01/10/2022 01/10/2023 1 1 Encounter Details Date Type Department Care Team (Latest Contact Info) Description 03/24/2022 8:30 AM INCLINED RAILWAY OPERATOR Comprehensive Visit Integrative [facility] and [facility] in [place], [place] [address] [place] [phone] Gloria Baez APRN, C.N.P., M.S.N. [address] [place] [phone] Fatigue Chronic (Primary Dx); Pain Back; Abnormal Oximetry Social History Tobacco Use Types Packs/Day Years [...] as of this encounter Consult Notes * Golria Baez APRN, C.N.P., M.S.N. - 03/24/2022 8:30 AM CST REFERRAL Larissa Beckham M.D., M.H.A. REASON FOR CONSULT Back pain and fatigue HISTORY OF PRESENT ILLNESS Kandis Caceres is a 56 y.o. female who presents to the [facility] for evaluation of chronic pain, fatigue, and sensory sensitivities. Morris was internally referred from General Internal Medicine. Past medical history includes veins in mild emphysema. This note is in collaboration with Nadine Centeno RN. Please see their note for additional intake history. 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 She sustained a work-related injury in 2015 and developed worsening back pain in . Her father in 2020 and she has had an abnormal oximetry study. Current symptoms include intermittent palpitations, tremors that have resolved, urinary incontinence, memory and concentration issues, tinnitus, back spasms and thoracic/lumbar back pain. She also expresses sensation of feeling as if her eyes feel like golf balls however she has had normal eye exams. Thyroid function studies have been normal as well as muscle enzyme stud ies. She is not had any recent imaging studies of her back and this is a major concern for her. Josefeports not being very social as of late and having difficulties with maintaining at her very demanding job. The following portions of the patient's history were reviewed and updated as appropriate: allergies, current medications, family history, medical history, social history, surgical history and problemlist. REVIEW OF SYSTEMS A ten point review of systems was performed and negative or noncontributory except as mentioned in the HPI. PHYSICAL EXAM Widespread Pain Index (WPI): 06/25 Symptom Severity (SS): 11/18 Tender Points: Depression Score (PHQ-9): 09/02 Anxiety Score (ZOE-7): 06/27 Regions: 3 The following criteria for fibromyalgia are present: N/a The following criteria for chronic fatigue syndrome are present: None RECOMMENDATIONS: Overall, Ms. Caceres's presentation is not consistent with a central sensitization disorder such as fibromyalgia or chronic fatigue syndrome.. 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 I explained that chronic fatigue syndrome is a diagnosis of exclusion. She had an abnormal overnight oximetry study. We had a detailed discussion about the biological concepts underlying central sensitization with regard to symptoms. Central sensitization syndrome is a central nervous system response to heightened stress that amplifies sensation markedly. This produces an augme ntation of responsiveness of central neurons to input from unimodal and polymodal receptors, with altered sensory processing in the brain, and malfunctioning of antinociceptive mechanisms. Both top-down and bottom-up mechanisms augment pain and sensitivity to a variety of peripheral stimuli, including physical exertion. Given her ongoing back pain I have scheduled an evaluation with physical medicine rehab along with updating imaging studies of both her thoracic and lumbar spine. While she does not complain of any numbness I am concerned that she is having urinary incontinence. If this is not found to be related to her back I would recommend an evaluation with a local urologist. INTEGRATIVE MEDICINE Mindfullness based practices have been shown to retrain the central sensitization process one use as part of a multimodal approach. The proposed mechanism includes a reduction in sympathetic tone andan increase in parasympathetic outflow. Health is comprised of physical, emotional, mental, spiritual, and community aspects. Physical health refers to conventional medical evaluations. Emotional health refers to active stress on health through the sympathetic nervous system. Mind/body therapies may decrease the physical effects of stress. Spiritual health refers to that which gives life a sense of meaning and purpose. Wellness comes by working within each of these areas in an integrative manner in conjunction with exercise and nutrition. Daily reading is advised, 20 minutes per day. The [facility] Guide to Stress-Free Living by Sukhi Krishnan MD Mastery of Your Anxiety and Panic: Workbook (Treatments That Work) by Jarad Herron and Melisa Bender Mastery of Your Anxiety and Worry: Workbook (Treatments That Work) by Melisa Bender and Jarad Herron The Cognitive Behavioral Workbook for Depression: A Yiys-me-Tlvz Program by Dr. Blayne Olivia and Bassam Escobedo Overcoming Depression: A Cognitive Therapy Approach Workbook (Treatments That Work) 2nd Edition, by Catalino Dudley M. Jane Yates, Sharon Morgillo Freeman Get Out of Your Mind and Into Your Life: The New Acceptance and Commitment Therapy by Aleksandr Cavazos Full Catastrophe Living and Wherever You Go, There You Are by Harshal Jacome The Mindfulness Solution to Pain: Sdyu-ap-Khig Techniques for Chronic Pain Management, by Ann Posey Is It Cochise Dying For?: How To Make Stress Work For You - Not Against You by Dr. Pavel Eastman Mind over Mood by Carmine and Robbie. Paced breathing, such as in meditation, has been found to be helpful by some patients. Several mediation apps are available on iCook.tw and the RingRang Stores. She should perform this 10- 15 minutes twice daily for a couple of months and then assess its utility. Utilizing calming visualizations, such as nature scenes, can enhance the effect of the paced-breathing exercises (Key Cybersecurityube search: meditation and nature). Mind/body therapies, such as yoga, emma chi, exercise, and biofeedback, can also decrease the physical effects of stress. Acupuncture and massage (relaxation, not deep tissue) are helpful for some patients as they can reduce the sympathetic response and increase parasympathetic outflow. Several mind/body therapies can also decrease the physical effects of stress including yoga, emma chi, exercise, and biofeedback. These instructions by Dr. Sukhi Krishnan offer breathing exercises that may be useful for training: Calm and Energize: A Meditation With Your Breath (https://www.youtube.com/watch?v=FWGEoH1SXk8) Rhythm: A Meditation With a Word (https://www.Gear Energyube.com/watch?v=FnlI-e4uxHw) These instructions by Dr. Rehan Valentin offer breathing exercises that may be useful for training: Three Breathing Exercises http://www.Walkmorejared.Xiant/srini/u/XLD99999/ybpsm-vrhxjreya-yxqmfayyj.html. Meditative movement therapies employ these breathing techniques and can help decrease the physical effects of stress including yoga, emma chi, exercise, and biofeedback. Zjpang5rwcvf: http://m9guqzcv.dcoe.mil/apps/ysaqlgx5shnwp Heart Rate Variability (HRV) is a measure of the variation in ambv-uj-oyox intervals in heart rate,which reflects neuro-cardiac function (heart-brain interactions) and autonomic nervous system dynamics. Higher variations in the heart rate lead to greater heart rate variability which indicates goodhealth and well-balanced autonomic function (sympathetic and parasympathetic nervous systems). In contrast, steadier heart rate leads to lower heart rate variability which indicates an imbalance in the autonomic function and implies the presence of physiological malfunction. Low heart rate variability has been found in patients with chronic fatigue and POTS. HeartMath and their Brain Fitness Program can improve heart rate variability. (https://www.heartmath.org/drbzlxvf-um-acj-heart/fld-zkmw-kz-heartmath/heart-rat e-variability/ http://store.heartHappy Inspectorth.org/s.nl/c.713995/n.2/it.A/id.579/.f?sc=14&zljezejg=3441) TreSensa may also help. This is a mind/body training program which uses a combination of Biofeedback hardware and maximino software to assist in mindfulness and meditation training. https://www.iSSimple/ DeskActive HRV monitor: A free Heart Rate Variability caitlin. HRV sensor must be purchased separately. Https://GoldSpot Media/caitlin?_branch_match_id=[id number] Additional relaxation exercises: Relaxation Abdominal Breathing - http://bcove.me/m97g9ang Relaxation Passive Muscle - http://bcove.me/ihrizr8b Relaxation Evening Erik Guided Imagery - http://bcove.me/ob1wbatv Relaxation Lignite Serenity Guided Imagery - http://bcove.me/ebswboeg Relaxation Progressive Muscle - http://bcove.me/okwp8kzz PSYCHIATRY AND PSYCHOLOGY Personality traits developed when younger are how one risa with present life. A history of traumatic life events often form the basis for central sensitization. As adults, such individuals often show tendencies for people-pleasing, perfectionism, and a strong sense of responsibility. Although thiscan make one an ideal worker, it comes at the cost of being physically exhausting and serves as a source of great frustration when symptoms prevent expected performance. Advised working with a local psychologist for cognitive behavioral training regarding the central sensitization disorder, including ongoing education on how to improve coping and adaptation skills.CBT has been found to reduce the pain response and increase dillon matter of the brain in fibromyalgia. Similar benefits are seen in chronic fatigue. Important components of cognitive behavioral therapy are as follows * Education reassurance; * Focus on functional gains rather than fibromyalgia as a disease; * Realistic goal setting; * Lifelong self-management; * Pacing and increasing activities; * Managing sleep; * Addressing cognitive dysfunction: use of daily planners, to do lists, attention techniques; * Recognizing the role of stress in symptom development; * Counteracting maladaptive thinking; * Relapse and maintenance; * Improved communication with others; * Assertiveness training; and * Use of medications. The Association for Behavioral and Cognitive Therapies (ABCT) Find A Therapist Service: http://www.findcbt.org/xFAT/. Often the manifestations of central sensitization coexist with mood disorders such as depression and anxiety. When these conditions are present, they can amply some of the debilitating symptoms and complicate recovery. Therefore, we strongly encourage our patients to work with their local physicians when mood symptoms are present. Psychiatry referrals can be facilitated by local physicians if necessary. The following resources offer online CBT programs if a therapist is not available in the local area: ONLINE CBT: http://web.[employer].psykiatri.se/en/treatment/ The Self-Authoring Suite workbook by Dr. Tc Up (https://www.I-DISPO.Xiant/) SLEEP Overnight oximetry was abnormal; formal sleep consultation is advised. This can be facilitated by the referring provider or primary provider. Adherence to proper sleep hygiene is important for the treatment of insomnia. Damaso Rosas's book No More Sleepless Nights can offer some useful techniques to reduce insomnia. Could trial a white noise generator (e.g., a fan, ocean waves). Avoid having a mobile device in the bedroom, and tape over any visible LED lights. If additional insomnia treatment is needed, CBT-I is generally considered the first-line treatment and can be facilitated through local providers. It is also available through the online program SHUTi. Bright light exposure for about 30 minutes at the patient's desired get up time every day can be helpful. Outdoor light is always adequate, phototherapy light boxes might be helpful during the colder and darker months of the year. PHYSICAL AND OCCUPATIONAL THERAPY A graduated exercise program has been shown to be beneficial for both fibromyalgia and chronic fatigue. The objective is not an immediate return to prior level of functioning, but a gradual, incremental increase in physical activity over a period of weeks to months. Working with a physical therapist with expertise in chronic pain conditions can be helpful in implementing this. Additionally, occupational therapy can be helpful for relaxation, stress management, life skills, moderation and energyconservation. Referrals can be facilitated locally by the primary care provider. MEDICATION FOR FATIGUE No medications have been consistently shown to be helpful for chronic fatigue syndrome. This includes antimicrobials, anti-inflammatories and antidepressants. Stimulants are sometimes used but they can exacerbate ???crash and burn??? cycles and have shown to have only modest affects. They must be used with caution, especially with their adverse effect profile and abuse potential. Modafinil shouldbe avoided as it may worsen cognitive symptoms. ALTERNATIVE MEDICATION Naltrexone, an orally semisynthetic opiate antagonist, is FDA-approved for treatment of heroin/alcohol addiction, but there have been observations that naltrexone in very low doses can also mitigate fatigue and stress in fibromyalgia and multiple sclerosis patients. It has been found to reduce infla mmatory cytokines which are elevated in chronic fatigue syndrome. It has also been used and chronicconstipation and irritable bowel syndrome. Consider naltrexone 4.5 mg daily dose; compounded from grinding 50mg tablets (NOT slow-release form) with Avicel, lactose (if lactose intolerance is not a problem), or sucrose fillers to prepare 4.5 mg capsules. Trial for two months. MEDICATION FOR SLEEP Pharmacologic therapy is reserved for second-line treatment, but may be necessary in some patients.We recommend short trials if medications are used because these medicines can be habit forming or cause rebound insomnia when stopped; working with a local provider is important. Avoid using multiple sedating medications at bedtime (both gabapentin and pregabalin mentioned above are sedating). Preferred options include: 1) Trazodone, which can be initiated at 25-50 mg at bedtime. A gradual titration to 50-100 mg can be undertaken. 2) Melatonin 3 mg about 2-4 hours prior to desired bedtime. 3) Ambien or Sonata are alternative sleeping agents that can be effective. Insomnia unresponsive to the above may require referral to a sleep specialist. HERBS/SUPPLEMENTS Oncologists have been recommending ginseng for cancer patients to treat their chronic fatigue, The mechanism for cancer-related fatigue appears to be the same as the proposed origin of chronic fatigue.The mechanism by which [place] ginseng may be able to moderate fatigue is evidenced by preclinical data. Several investigators have established a consistent link between cancer related fatigue and inflammation and have provided data to support dysregulation of the hypothalamic pituitary adrenal axis. These data suggest that chronic fatigue in cancer is associated with an inability for the hypothalamic pituitary adrenal axis to regulate inflammatory processes and that concentrations of inflammatory cytokines remain elevated instead of re-achieving homeostasis. Preclinical data evaluating thebiologic activity of ginseng have demonstrated the ability of ginseng to downregulate inflammatory pathways, decrease inflammation, and modulate cortisol and the impact of chronic stress on the hypothalamic pituitary adrenal axis. Ginsen,000 mg taken 2 times per day, at breakfast and lunch (before noon to ensure it doesn't negativelyimpact sleep although this has not been reported). WHERE to BUY: 1. Pure ground root can be purchased from the [place] (a [employer] cooperative, not adietary supplement newcomer hostess) via their website: www.Terres et Terroirs. 2. Ginseng used in a [facility] study was obtained from http://www.[employer]oTherapeutics.Xiant/ . Avoid other OTC formulations/extracts as those have been found to exhibit estrogenic characteristics. Vitamin C can reduce tumor necrosis factor production. A trial of 1 gram daily for 6 weeks is low risk. Vitamin B6 may reduce inflammatory cytokines in inflammatory disorder such as rheumatoid arthritis.Recommended daily allowance (FLOWER MACHINE OPERATOR) for oral intake is: 19 to 50 years: 1.3 mg per day. >51 years: Females: 1.5 mg, Males: 1.7 mg per day. Vitamin B6 deficiency can be treated with 100 mg daily for 4 weeks. Excessive intake can cause neurologic affects such as neuropathy symptoms. FOR DISCUSSION AT HOME Understanding Chronic Pain: What to do about it in less than five minutes? https://www.youtube.com/watch?v=RWMKucuejIs Dr. Fuller Discussing Central Sensitization Syndrome (CSS) https://www.youtube.com/watch?v=7tdxH9gJhqs Total visit time greater than 60 minutes, with over 50% spent counseling with the patient and coordination of care activities described above. Following our consultation, I am referring the patient for additional education with a [facility] nurse INED RAILWAY OPERATOR documented in this encounter Plan of Treatment Upcoming Encounters Date Type Department Care Team (Latest Contact Info) Description 03/25/2023 10:15 AM INCLINED RAILWAY OPERATOR Clinical Communication Virtual Review in [place], [place] [address] [place] [address] 03/26/2023 11:30 AM INCLINED RAILWAY OPERATOR Office [facility] in [place], [place] [address] [place] [address] Linden Finley III, M.D. [address] [place] [phone] Scheduled Referrals Name Type Priority Associated Diagnoses Order Schedule Physical Medicine and Rehabilitation - General consult (clinic) Outpatient Referral Routine Pain Back Expected: 03/24/2022 (Approximate), Expires: 06/23/2023 documented as of this encounter Results * DX Thoracic Spine 2 Views (03/25/2022 1:49 PM INCLINED RAILWAY OPERATOR) Anatomical Region Laterality Modality Thoracic Spine, Musculoskele garrett RST LOS, Neuroradiology ARZ LOS, Muskuloskeletal FLA LOS N/A Digita l Radiography 03/25/2022 1:50 PM INCLINED RAILWAY OPERATOR Impressions 03/25/2022 1:52 PM INCLINED RAILWAY OPERATOR Slight thoracolumbar curve. Mild-moderate lower lumbar facet arthritis. Mild degenerative disc space narrowing in the mid thoracic spine. Thoracic and lumbar spine are otherwise negative. Narrative 03/25/2022 1:52 PM INCLINED RAILWAY OPERATOR EXAM: ??DX LUMBAR SPINE 2-3 VIEWS, DX [...] Lumbar Spine 2-3 Views (03/25/2022 1:49 PM INCLINED RAILWAY OPERATOR) Anatomical Region Laterality Modality Lumbar Spine, Musculoskeleta l RST LOS, Neuroradiology ARZ LOS, Muskuloskeletal FLA LOS N/A Digital Radiography 03/25/2022 1:50 PM INCLINED RAILWAY OPERATOR Impressions 03/25/2022 1:52 PM INCLINED RAILWAY OPERATOR Slight thoracolumbar curve. Mild-moderate lower lumbar facet arthritis. Mild degenerative disc space narrowing in the mid thoracic spine. Thoracic and lumbar spine are otherwise negative. Narrative 03/25/2022 1:52 PM INCLINED RAILWAY OPERATOR EXAM: ??DX LUMBAR SPINE 2-3 VIEWS, DX [...] documented in this encounter Visit Diagnoses Diagnosis Fatigue Chronic- Primary Pain Back Abnormal Oximetry Pain Back documented in this encounter Additional Health Concerns Assessment Noted Time PHQ-9 Depression Total Score: 6 03/24/19 23 7:22 AM INCLINED RAILWAY OPERATOR documented as of this encounter Care Teams Tube Building Machine Operator Relationship Specialty Start Date End Date Elsewhere, Pcp PCP - General Internal Medicine 03/12/22 documented as of this encounter
--- OUTSIDE RECORDS SUMMARY | 2023-03-18 12:03 | XMS_ITS | Referral Summary ---
Author Name Unknown Organization [facility] Address [address] [place] [address] Care Team Providers Care Infusion Therapy Nurse Name Role Phone Damaso Laguerre MD Primary Care Provider [phone] Soila Beasley PA-C Unavailable [phone] Allergies Active Allergy Reactions Criticality Noted Date [...] T Respiratory Rate 21 04/16/2017 7:45 PM CHEMICAL ENGRAVER Oxygen Saturation 97% 08/22/2021 9:06 AM CDT Inhaled Oxygen Concentration - - Weight 85 kg (187 lb 4.8 oz) 08/22/2021 9:06 AM CDT Height 168.9 cm (5' 6.5) 08/22/2021 9:06 AM CDT Body Mass Index 29.78 08/22/2021 9:06 AM CDT Plan of Treatment Not on file Care Teams Infusion Therapy Nurse Relationship Specialty Start Date End Date Damaso Laguerre MD [facility] [address] [place] [phone] PCP - General Family Practice 03/11/11 Soila Beasley PA-C [facility] [address] [place] [address] Physician Patent Clerk Physician Patent Clerk 07/09/21
--- OUTSIDE RECORDS SUMMARY | 2023-03-18 12:03 | XMS_ITS | Encounter Summary ---
Author Name Unknown Organization [facility] Address [address] [place] [address] Care Team Providers Care Final Operations Technician Name Role Phone Elsewhere, Pcp Primary Care Provider Unavailabl e Reason for Referral * Outpatient (Routine) - Closed Specialty Diagnoses / Procedures Referred By Kourtney crum Referred To Contact Diagnoses Pain Back Procedures EMG Phyllis Hidalgo M.D. [address] [place] [phone] [facility] Referral ID Status Reason Start Date Expiration Date Visits Re quested Visits Authorized [id number] Closed 03/26/2022 03/26/2023 1 1 L HEALTH CONSULTANT Reason for Visit * Outpatient (Routine) - Closed Specialty Diagnoses / Procedures Referred By Kourtney crum Referred To Contact Diagnoses Pain Back Procedures EMG Phyllis Hidalgo M.D. [address] [place] [phone] [facility] Referral ID Status Reason Start Date Expiration Date Visits Re quested Visits Authorized [id number] Closed 03/26/2022 03/26/2023 1 1 Encounter Details Date Type Department Care Team (Latest Contact Info) Description 04/02/2022 2:30 PM RURAL HEALTH CONSULTANT - 04/02/2022 11:59 PM RURAL HEALTH CONSULTANT Hospital Encounter Department of Neurology in [place], [place] 200 [place] [phone] Phyllis Hidalgo M.D. [address] [place] [phone] Pain Back Discharge Disposition: Home or Self [...] (Latest Contact Info) Description 03/25/2023 10:15 AM RURAL HEALTH CONSULTANT Clinical Communication Virtual Review in [place], [place] 200 [place] [address] 03/26/2023 11:30 AM RURAL HEALTH CONSULTANT Office Visit [facility] in [place], [place] [address] [place] [phone] Linden Finley III, M.D. [address] [place] [phone] documented as of this encounter Procedures Procedure Name Priority Date/Time Associated Diagnosis Comments EMG Routine 04/02/2022 2:33 PM RURAL HEALTH CONSULTANT Pain Back documented in this encounter Results * EMG (04/02/2022 2:33 PM RURAL HEALTH CONSULTANT) 04/02/2022 2:30 PM RURAL HEALTH CONSULTANT Narrative EMG - 04/03/2022 7:14 AM RURAL HEALTH CONSULTANT Table formatting from the original result was not included. 02-Apr-2022 ? Electromyography ? Final Report Study Number: 1 EMG Ground Instructor Basic: Rubina Gonzalez 127 or [phone] Referred by: PHYLLIS HIDALGO (127 or [phone]) Referred for: Back pain Referral Code: ?100 [...] local factors. ?? Ngozi Gonzalez (127 or [phone])/[facility] NERVE CONDUCTIONS ??Record Rep ?? Normal ??Normal [...] Rubina Gonzalez MD at 04/02/2022 4:57:22 PM RURAL HEALTH CONSULTANT Procedure Note Rubina Gonzalez M.D. - 04/03/2022 02-Apr-2022 Electromyography Final Report Study Number: 1 EMG Ground Instructor Basic: Rubina Gonzalez. 127 or [phone] Referred by: PHYLLIS HIDALGO (127 or [phone]) Referred for: Back pain Referral Code: 100 [...] or local factors. Ngozi Gonzalez (127 or [phone])/[facility] NERVE CONDUCTIONS Record Rep Normal Normal Distal [...] MarianneT. Gonzalez MD at 04/02/2022 4:57:22 PM RURAL HEALTH CONSULTANT Phyllis Hidalgo M.D. NEUROLOGY ORDERAB LES EMG documented in this encounter Visit Diagnoses Diagnosis Pain Back documented in this encounter Additional Health Concerns Assessment Noted Time PHQ-9 Depression Total Score: 6 03/24/19 23 7:22 AM RURAL HEALTH CONSULTANT documented as of this encounter Care Teams Final Operations Technician Relationship Specialty Start Date End Date Elsewhere, Pcp PCP - General Internal Medicine 03/12/22 documented as of this encounter
--- OUTSIDE RECORDS SUMMARY | 2023-03-18 12:03 | XMS_ITS | Encounter Summary ---
Author Name Unknown Organization [facility] Address [address] [place] [address] Care Team Providers Care Fashion Consultant Sales Name Role Phone Elsewhere, Pcp Primary Care Provider Unavailabl e Encounter Details Date Type Department Care Team (Late st Contact Info) Description 04/09/2022 Documentation Department of Physical Medicine and Rehabilitation in [place], [place] [address] [place] [phone] Phyllis Stein M.D. [address] [place] [phone] Social History Tobacco Use Types Packs/Day Years [...] as of this encounter Progress Notes * Phyllis Stein M.D. - 04/09/2022 12:46 PM CST I called Ms. Caceres back to review her EMG results. She had a thorough EMG that included needlingof 2 different thoracic paraspinals without any evidence of myopathy. Of note there was no sign of neuropathy or radiculopathy seen on her EMG as well. Overall these results are reassuring and I do not think a muscle biopsy is indicated as the patient had previously been told she might need a muscle biopsy. She would many questions about her oxygen levels as well as previous history of slightly elevated CK in the context of her diffuse back pain. I am not familiar with oxygen status causing back pain and did not see an indication for further laboratory workup but deferred Internal Medicine if at any point the CK should be repeated or not. She continues to have muscle spasms that include her back and legs. I reviewed maintaining hydration as well as treatments for myofascial pain that include massage, stretching, heat, topical medications, acupuncture as well as referral to physical therapy. I reviewed with her the referral to physical therapy for core strengthening and back extensor strengthening. Therapy may also be able to use some modalities for pain treatment such as heat or ultrasound. I answered all questions to the best of my ability in this follow-up call. E FEEDER documented in this encounter Plan of Treatment Upcoming Encounters Date Type Department Care Team (Latest Contact Info) Description 03/25/2023 10:15 AM RANGE FEEDER Clinical Communication Virtual Review in [address] [address] 03/26/2023 11:30 AM RANGE FEEDER Office Visit [facility] in [address] [phone] Linden Finley III, M.D. [address] [place] [phone] documented as of this encounter Visit Diagnoses Not on filedocumented in this encounter Additional Health Concerns Assessment Noted Time PHQ-9 Depression Total Score: 6 03/24/19 7:22 AM RANGE FEEDER documented as of this encounter Care Teams Fashion Consultant Sales Relationship Specialty Start Date End Date Elsewhere, Pcp PCP - General Internal Medicine 03/12/22 documented as of this encounter
--- OUTSIDE RECORDS SUMMARY | 2023-03-18 12:03 | XMS_ITS | Encounter Summary ---
Author Name Unknown Organization [facility] Address [address] [place] [address] Care Team Providers Care Barrel Driller Name Role Phone Elsewhere, Pcp Primary Care Provider Unavailabl e Reason for Referral * Outpatient (Routine) - Closed Specialty Diagnoses / Procedures Referred By Kourtney crum Referred To Contact Diagnoses Palpitations Procedures Escalated Event Monitor - TECH USE ONLY Tracey Bourne M.D. [address] [place] [phone] Referral ID Status Reason Start Date Expiration Date Visits Re quested Visits Authorized [id number] Closed 04/04/2022 04/04/2023 1 1 TRIC UTILITY LINEWORKER Reason for Visit * Outpatient (Routine) - Closed Specialty Diagnoses / Procedures Referred By Kourtney crum Referred To Contact Diagnoses Palpitations Procedures Escalated Event Monitor - TECH USE ONLY Tracye Bourne M.D. [address] [place] [phone] Referral ID Status Reason Start Date Expiration Date Visits Re quested Visits Authorized [id number] Closed 04/04/2022 04/04/2023 1 1 Encounter Details Date Type Department Care Team (Latest Contact Info) Description 04/04/2022 11:20 AM ELECTRIC UTILITY LINEWORKER - 04/04/2022 11:59 PM ELECTRIC UTILITY LINEWORKER Hospital Encounter Division of Cardiovascular Diseases in [place], [place] [address], [place] [phone] Tracey Bourne M.D. [address] [place] [phone] Palpitations Discharge Disposition: Home or Self Care [...] (Latest Contact Info) Description 03/25/2023 10:15 AM ELECTRIC UTILITY LINEWORKER Clinical Communication Virtual Review in [place], [place] 200 [place] [address] 03/26/2023 11:30 AM ELECTRIC UTILITY LINEWORKER Office Visit [facility] in [place], [place] [address] [place] [phone] Linden Finley III, M.D. [address] [place] [phone] documented as of this encounter Procedures Procedure Name Priority Date/Time Associated Diagnosis Comments EVENT MONITOR - ALL CHARGES Routine 05/04/2022 2:30 AM ELECTRIC UTILITY LINEWORKER Palpitations documented in this encounter Results * EVENT MONITOR - ALL CHARGES (05/04/2022 2:30 AM ELECTRIC UTILITY LINEWORKER) 04/05/2022 10:5 8 AM ELECTRIC UTILITY LINEWORKER Narrative INFOBIONIC MOME - 05/06/2022 11:33 AM ELECTRIC UTILITY LINEWORKER 1. The patient was monitored from 04/05/2022 to 05/04/2022. The patient's baseline rhythm was sinus with intermittent sinus arrhythmia and varying P-wave morphology. 2. There were no PVCs seen. 3. PACs were seen singly and paired. There were 35 supraventricular tachycardia events seen. The longest duration of SVT was 28 beats. The maximum rate of SVT was 146 bpm. 4. The patient reported 29 symptomatic events of Palpitations and heart beats too hard or feels too full, when lies down. During these events, the rhythm was sinus. The heart rates varied from 59 bpm to 113 bpm. At and/or around these times single PACs and varying P-wave morphology were noted. One 6-beat run of SVT with a rate of 177 bpm was also observed. Milk House Worker: TOI Regalado / ROSA Buck Procedure Note Cr Lai M.D., Ph.D. - 05/06/2022 1. The patient was monitored from 04/05/2022 to 05/04/2022. The patient'sbaseline rhythm was sinus with intermittent sinus arrhythmia and varyingP-wave morphology. 2. There were no PVCs seen. 3. PACs were seen singly and paired. There were 35 supraventriculartachycardia events seen. The longest duration of SVT was 28 beats. Themaximum rate of SVT was 146 bpm. 4. The patient reported 29 symptomatic events of Palpitations and heartbeats too hard or feels too full, when lies down. During these events,the rhythm was sinus. The heart rates varied from 59 bpm to 113 bpm. Atand/or around these times single PACs and varying P-wave morphology were noted. One 6-beat run of SVT witha rate of 177 bpm was also observed. Milk House Worker: TOI Regalado / ROSA Buck Tracey Harris M.D. CV CARDIAC SERVIC ES PROCEDURES INFOBIONIC AR NA documented in this encounter Visit Diagnoses Diagnosis Palpitations documented in this encounter Additional Health Concerns Assessment Noted Time PHQ-9 Depression Total Score: 6 03/24/19 23 7:22 AM ELECTRIC UTILITY LINEWORKER documented as of this encounter Care Teams Barrel Driller Relationship Specialty Start Date End Date Elsewhere, Pcp PCP - General Internal Medicine 03/12/22 documented as of this encounter
--- OUTSIDE RECORDS SUMMARY | 2023-03-18 12:03 | XMS_ITS | Encounter Summary ---
Author Name Unknown Organization [facility] Address [address] [place] [address] Care Team Providers Care Writer Technical Publications Name Role Phone Elsewhere, Pcp Primary Care Provider Unavailabl e Reason for Visit * Reason Onset Date Comments Pre-visit Intake 07/21/2022 Encounter Details Date Type Department Care Team (Latest Contact Info) Description 07/21/2022 7:00 AM CDT Clinical Communication Virtual Review in [address] [address] Pre-visit Intake Social History Tobacco Use Types [...] (Latest Contact Info) Description 03/25/2023 10:15 AM SLASHER RUNNER Clinical Communication Virtual Review in [place], [place] 200 [place] [address] 03/26/2023 11:30 AM SLASHER RUNNER Office Visit [facility] in [place], [place] [address] [place] [phone] Linden Finley III, M.D. [address] [place] [phone] documented as of this encounter Visit Diagnoses Not on filedocumented in this encounter Additional Health Concerns Assessment Noted Time PHQ-9 Depression Total Score: 6 03/24/19 23 7:22 AM SLASHER RUNNER documented as of this encounter Care Teams Writer Technical Publications Relationship Specialty Start Date End Date Elsewhere, Pcp PCP - General Internal Medicine 03/12/22 documented as of this encounter
--- OUTSIDE RECORDS SUMMARY | 2023-03-18 12:03 | XMS_ITS | Encounter Summary ---
Author Name Unknown Organization [facility] Address [address] [place] [address] Care Team Providers Care Motorboat Operator Name Role Phone Elsewhere, Pcp Primary Care Provider Unavailabl e Reason for Referral * Outpatient (Routine) - Authorized Specialty Diagnoses / Procedures Referred By Contac t Referred To Contact Diagnoses Palpitations Procedures ECG Heart Rhythm Monitor (Holter) Tracey Bourne M.D. [address] [place] [phone] [facility] Referral ID Status Reason Start Date Expiration Date V isits Requested Visits Authorized [id number] Authorized 03/26/2022 03/26/2023 1 1 GN SPECIALIST Reason for Visit * Outpatient (Routine) - Closed Specialty Diagnoses / Procedures Referred By Contact Referred To Contact Cardiovascular Diseases / Cardiovascular Disease Diagnoses Fatigue Palpitations Larissa Beckham M.D., M.H.A. [address] [place] [phone] [facility] Referral ID Status Reason Start Date Expiration Date Visits Re quested Visits Authorized [id number] Closed 01/10/2022 01/10/2023 1 1 Encounter Details Date Type Department Care Team (Latest Contact Info) Description 03/26/2022 4:15 PM DESIGN SPECIALIST Comprehensive Visit Department of Cardiovascular Medicine in [place], [place] [address] [place] [phone] Tracey Bourne M.D. [address] [place] [phone] Palpitations (Primary Dx) Social History Tobacco Use Types [...] Sign Reading Time Taken Comments Blood Pressure 116/68 03/26/2022 4:13 PM DESIGN SPECIALIST Pulse 70 03/26/2022 4:13 PM DESIGN SPECIALIST Temperature - - Respiratory Rate - - Oxygen Saturation 98% 03/26/2022 4:13 PM DESIGN SPECIALIST Inhaled Oxygen Concentration - - Weight 84.7 kg (186 lb 11.7 oz) 03/26/2022 4:13 PM DESIGN SPECIALIST Height 169.5 cm (5' 6.73) 03/26/2022 4:13 PM CS T Body Mass Index 29.48 03/26/2022 4:13 PM DESIGN SPECIALIST documented in this encounter Progress Notes * Tracey Bourne M.D. - 03/26/2022 4:15 PM CST RESULTS NOTE Event monitor showed PACs with brief SVT with longest duration of 28 beats with a highest heart rate around 170s which correlated with some of her symptoms I recommended lifestyle modification including decreasing caffeine/alcohol intake, avoiding sleep deprivation, weight loss and regular exercise. I also recommend YINA evaluation which she is waiting for home sleep study. After a detailed discussion about the findings, and natural course and possible treatment options she opted to try lifestyle modification and defer medications for now. Meanwhile she will get her home sleep study done, I amoptimistic that YINA treatment will result in symptom improvement. Tracey Harris M.D. GN SPECIALIST documented in this encounter Consult Notes * Tracey Bourne M.D. - 03/26/2022 4:15 PM CST Attestation signed by Cynthia Childress M.D. at 03/26/2022 7:03 PM I reviewed the case in detail with Dr. Sarah Harris and met with the patient. I agree with the plan outlined. We answered questions. Referring Provider: Larissa Beckham M.D., M.H.A. Reason for Consultation: 1. Palpitation CHIEF COMPLAINT/REASON FOR CONSULT Palpitations, fatigue HISTORY OF PRESENT ILLNESS Ms. Kandis Caceres is a very pleasant 56 y.o. female who presents to [facility] for palpitations. She was recently evaluated in [facility] for multiple issues including post exertion fatigue, anemia, tinnitus, musculoskeletal back pain, cognitive concerns and palpitations. She has had occasional palpitations for her whole life but since 2020 she has had bad palpitation. She has had generalized fatigue and exertional palpitation. At some point she was found to haveanemia and her symptoms improved slightly as her hemoglobin improved. Currently she experiences rapid heart beating few times a week, this is with exertion. She denies chest pain, SOB, dizziness, presyncope/syncope. 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 Does not exercise regularly. Does not monitor BP at home. Cardiac History Previous cardiac history includes none Cardiovascular Risk Factors: 1. Smoking status: Current smoker, 6 cigarettes/day for decades 2. Type II Diabetes Mellitus: no No results found for: HGBA1C 3. Hypertension: no 4. Dyslipidemia: no No results found for: LIPA 5. Family history of early Coronary Artery Disease in a first degree relative (Male less than 55 years of age; Female less than 65 years of age): no grandmother of aneurysm at 40s 6. Obesity and/or Metabolic Syndrome: yes ) METABOLIC SYNDROME: Score: 0 7. Sedentary lifestyle: no 8. Menopausal status: postmenopausal BP Readings from Last 3 Encounters: 02/18/22 111/71 PHYSICAL EXAMINATION General: Alert, comfortable Neck: Supple, no JVD, no carotid bruit Heart: Regular rate and rhythm, normal S1 and S2, no extra sounds/murmurs Chest: Clear to auscultation Abdomen: Soft, nontender, nondistended Extremities, no pretibial edema, bilateral tibialis posterior pulses full. DIAGNOSTICS EKG 02/18/2022: Normal sinus rhythm Exercise stress echocardiogram 07/21/2021: This was a normal stress echocardiogram with no evidenceof stress-induced ischemia. Good exercise tolerance ( 09:00 Romero protcol / 10.10 Mets) The patient developed dyspnea with [address] depression, however no exercise induced regional wall motion abnormality was identifield ASSESSMENT / PLAN Kandis Caceres is a pleasant 56 years old female with no prior cardiac history presented today for generalized fatigue and palpitations. An outside stress TTE shows normal LV/RV systolic function and negative for RWMA at stress. She has exertional intolerance and palpitations mostly with activity. At present I have a low suspicion for sustained arrhythmia as a cause of her symptoms but nevertheless I will evaluate this further with extended Holter monitoring. Meanwhile she has signs and symptoms of YINA, which can explain the generalized fatigue as well as palpitations. I agree with home sleep study as planned by our pulmonary colleagues. #1 Exertional intolerance #2 Palpitation #3 Possible YINA Plan 1. Extended cardiac event monitor 2. Sleep medicine evaluation for possible YINA Discussed with . Tracey Harris M.D. GN SPECIALIST documented in this encounter Plan of Treatment Upcoming Encounters Date Type Department Care Team (Latest Contact Info) Description 03/25/2023 10:15 AM DESIGN SPECIALIST Clinical Communication Virtual Review in [place], [place] [address] [place], [place] [address] 03/26/2023 11:30 AM DESIGN SPECIALIST Office Visit [facility] in [place], [place] [address] [place] [phone] Linden Finley III, M.D. [address] [place] [phone] documented as of this encounter Results * HOLTER MONITOR - IN CLINIC LINER MAN (04/03/2022 12:15 AM DESIGN SPECIALIST) Min Heart Rate 56 bpm INFOB IONIC [...] Duration 0 duration INFOBION IC MOME AF [place] 0 percent INFOBIONIC MOME Symptom Count 0 count INFOBI ONIC MOME 04/02/2022 2:14 PM DESIGN SPECIALIST Narrative INFOBIONIC MOME - 04/04/2022 10:33 AM DESIGN SPECIALIST [place] 1. The basic rhythm was sinus. Poor [...] 1%. 4. No symptomatic events were recorded. Senior Information Security Analyst: Enma Jason A Holter monitor with cascade to extended monitoring was ordered for the indication of suspected tachyarrhythmia. During the Holter monitoring period, the patient did not experience have VT >=110bpm or SVT >=140bpm for >=30 beats or AF >=30 seconds. Therefore, the study was cascaded to extended monitoring. Procedure Note Cr Lai M.D., Ph.D. - 04/04/2022 [place] 1. The basic rhythm was sinus. Poor [...] 1%. 4. No symptomatic events were recorded. Senior Information Security Analyst: Enma Jason A Holter monitor with cascade to extended monitoring was ordered for theindication of suspected tachyarrhythmia. During the Holter monitoringperiod, the patient did not experience have VT >=110bpm or SVT >=140bpmfor >=30 beats or AF >=30 seconds. Therefore, the study was cascaded to extended monitoring. Tracey Harris M.D. CV CARDIAC SERVIC ES PROCEDURES INFOBIONIC MOME NA documented in this encounter Visit Diagnoses Diagnosis Palpitations- Primary Palpitations documented in this encounter Additional Health Concerns Assessment Noted Time PHQ-9 Depression Total Score: 6 03/24/19 23 7:22 AM DESIGN SPECIALIST documented as of this encounter Care Teams Motorboat Operator Relationship Specialty Start Date End Date Elsewhere, Pcp PCP - General Internal Medicine 03/12/22 documented as of this encounter
== END 2023-03-12 09:23 | disposition home or self-care (01) ==
LOC: NFLDREF 03-18 12:00
PROVIDERS: PCP Physician Assistant Medical; Referring Provider Physician Assistant Medical; Visit Provider Physician Assistant Medical
DX: D64.9 Anemia, unspecified (principal); R74.02 Elevation of levels of lactic acid dehydrogenase [LDH]; R74.8 Abnormal levels of other serum enzymes; D47.2 Monoclonal gammopathy; R53.83 Other fatigue; R79.89 Other specified abnormal findings of blood chemistry
CPT/HCPCS: 82310; 82550; 82784; 83520; 83615; 83970; 84155; 84165; 84443; 86334; 87086

== ENCOUNTER 2023-03-26 08:54 | Outpatient (CLI) | payer BC, SELFPAY ==
--- OUTSIDE RECORDS SUMMARY | 2023-03-26 09:02 | XMS_ITS | Clinical Summary ---
Author Name Unknown Organization [place] Address [facility] [place] [address] Care Team Providers Care Gift Shop Manager Name Role Phone Soila Beasley PA-C Primary Care Provider Dodie Rosas DO Unavailable [phone] Allergies Active Allergy Reactions Criticality Noted Date Comments Ciprofloxacin 08/22/2021 Medications Medication Sig Dispensed Refills Start Date End Date Status ferrous sulfate (FEROSUL) 325 (65 Fe) MG tablet Take 325 mg by mouth daily as needed 0 Active rivaroxaban ANTICOAGULANT (XARELTO) 10 MG TABS tablet Take 1 tablet (10 mg) by mouth daily (with dinner) for 45 days 45 tablet 0 03/22/2023 05/06/2023 Active Encounters Date Type Department Care Team Description 03/22/2023 5:09 PM [employer] - 03/22/2023 7:29 PM [employer] Emergency [facility] Emergency Dept [address] [place] [phone] Ajay Saeed MD Acute superficial venous thrombosis of lower extremity, right Discharge Disposition: Home or Self Care 03/22/2023 Travel from Last 3 Months Social History Tobacco Use Types Packs/Day Years Used Date Smoking Tobacco: Never Assessed Adolescent Education Answer Date Record ed Getting School Help Needed Not on file 12/07 Sex and Gender Information Value Date Recorded Sex Assigned at Not on file Gender Identity Not on file Sexual Orientation Not on file Last Filed Vital Signs Vital Sign Reading Time Taken Comments Blood Pressure 121/65 03/22/2023 7:29 PM [employer] Pulse 80 03/22/2023 7:29 PM [employer] Temperature 36.7 ??C (98 ??F) 03/22/2023 5:08 PM [employer] Respiratory Rate 20 03/22/2023 7:29 PM [employer] Oxygen Saturation 98% 03/22/2023 7:29 PM [employer] Inhaled Oxygen Concentration - - Weight 85 kg (187 lb 4.8 oz) 08/22/2021 9:06 AM CDT Height 168.9 cm (5' 6.5) 08/22/2021 9:06 AM CDT Body Mass Index 29.78 08/22/2021 9:06 AM CDT Plan of Treatment Upcoming Encounters Date Type Department Care Team (Late st Contact Info) Description 06/10/2023 1:45 PM CDT Office Visit [facility] [address] [place] [address] Dodie Rosas DO [address] [place], [place] [address] Health Maintenance Due Date Last Done Comments ADVANCE CARE PLANNING 1966 ANNUAL REVIEW OF HM ORDERS 1966 CT COLONOGRAPHY 1966 FIT 1966 FLEX SIG 1966 YEARLY PREVENTIVE VISIT 1966 sDNA (Cologuard) 1966 COVID-19 Vaccine (#1) 1966 COLONOSCOPY 1976 COLORECTAL CANCER SCREENING 1976 HIV SCREENING 1981 HEPATITIS C SCREENING 1984 LIPID 05/13/2011 ZOSTER IMMUNIZATION (1 of 2) 2016 DTAP/TDAP/TD IMMUNIZATION (3 - Td or Tdap) 09/17/2016 09/17/2006, 09/17/2006 INFLUENZA VACCINE (#1) 2022 1, 02/03/2011, 03/25/2010, Additional history exists PHQ-2 (once per calendar year) 2023 MAMMO SCREENING 04/25/2023 04/25/2021, 04/25/2021 PAP 10/30/2023 10/29/2020, 10/29/2020 HEPATITIS B [...] Procedure Name Priority Date/Time Associated Diagnosis Comments US LOWER EXTREMITY VENOUS DUPLEX RIGHT STAT 03/22/2023 6:40 PM [employer] CBC WITH PLATELETS & DIFFERENTIAL STAT 03/22/2023 6:39 PM [employer] CBC WITH PLATELETS AND DIFFERENTIAL STAT 03/22/2023 6:39 PM [employer] MAGNESIUM STAT 03/22/2023 6:11 PM [employer] BASIC METABOLIC PANEL STAT 03/22/2023 6:11 PM [employer] PARTIAL THROMBOPLASTIN TIME STAT 03/22/2023 6:11 PM [employer] INR STAT 03/22/2023 6:11 PM [employer] from Last 3 Months Results * US Lower Extremity Venous Duplex Right (03/22/2023 6:40 PM [employer]) Anatomical Region Laterality Modality Lower Extremity Ultrasound 03/22/2023 6:40 PM [employer] Impressions 03/22/2023 6:52 PM [employer] IMPRESSION: 1. ??No deep venous thrombosis in the right lower extremity. 2. ??Superficial thrombophlebitis within a varicosity in the medial right thigh. This extends for a length of 5 cm Narrative 03/22/2023 6:52 PM [employer] EXAM: US LOWER EXTREMITY VENOUS DUPLEX RIGHT LOCATION: [facility] DATE: 03/22/2023 INDICATION: R medial thigh pain COMPARISON: None. TECHNIQUE: Venous Duplex ultrasound of the right lower extremity with and without compression, augmentation and duplex. Color flow and spectral Doppler with waveform analysis performed. FINDINGS: Exam includes the common femoral, femoral, popliteal, and contralateral common femoral veins as well as segmentally visualized deep calf veins and greater saphenous vein. RIGHT: No deep vein thrombosis. . No popliteal cyst. Procedure Note Mark Anthony Martin MD - 03/22/2023 EXAM: US LOWER EXTREMITY VENOUS DUPLEX RIGHT LOCATION: [facility] DATE: 03/22/2023 INDICATION: R medial thigh pain COMPARISON: None. TECHNIQUE: Venous Duplex ultrasound of the right lower extremity with andwithout compression, augmentation and duplex. Color flow and spectralDoppler with waveform analysis performed. FINDINGS: Exam includes the common femoral, femoral, popliteal, andcontralateral common femoral veins as well as segmentally visualized deepcalf veins and greater saphenous vein. RIGHT: No deep vein thrombosis. . No popliteal cyst. IMPRESSION: 1. No deep venous thrombosis in the right lower extremity. 2. Superficial thrombophlebitis within a varicosity in the medial rightthigh. This extends for a length of 5 cm Ajay Saeed MD [facility] US ORDERABLES * CBC with platelets and differential (03/22/2023 6:39 PM [employer]) WBC Count 6.4 4.0 - 11.0 10e3/uL 03/22/2023 6:39 PM [facility] RBC Count 3.98 3.80 - 5.20 10e6/uL 03/22/2023 6:39 PM [facility] Hemoglobin 12.2 11.7 - 15.7 g/dL 03/22/2023 6:39 PM [facility] Hematocrit 37.3 35.0 - 47.0 % 03/22/2023 6:39 PM [facility] MCV 94 78 - 100 fL 03/22/2023 6:39 PM [facility] MCH 30.7 26.5 - 33.0 pg 03/22/2023 6:39 PM [facility] MCHC 32.7 31.5 - 36.5 g/dL 03/22/2023 6:39 PM [facility] RDW 12.9 10.0 - 15.0 % 03/22/2023 6:39 PM [facility] Platelet Count 311 150 - 450 10e3/uL 03/22/2023 6:39 PM [facility] % Neutrophils 59 % 03/22/2023 6:39 PM [facility] % Lymphocytes 33 % 03/22/2023 6:39 PM [facility] % Monocytes 6 % 03/22/2023 6:39 PM [facility] % Eosinophils 1 % 03/22/2023 6:39 PM [facility] % Basophils 1 % 03/22/2023 6:39 PM [facility] % Immature Granulocytes 0 % 03/22/2023 6:39 PM [facility] NRBCs per 100 WBC 0 <1 /100 024 6:39 PM [facility] Absolute Neutrophils 3.8 1.6 - 8.3 10e3/uL 03/22/2023 6:39 PM [facility] Absolute Lymphocytes 2.1 0.8 - 5.3 10e3/uL 03/22/2023 6:39 PM [facility] Absolute Monocytes 0.4 0.0 - 1.3 10e3/uL 03/22/2023 6:39 PM [facility] Absolute Eosinophils 0.1 0.0 - 0.7 10e3/uL 03/22/2023 6:39 PM [facility] Absolute Basophils 0.0 0.0 - 0.2 10e3/uL 03/22/2023 6:39 PM [facility] Absolute Immature Granulocytes 0.0 <=0.4 10e3/uL 03/22/2023 6:39 PM [facility] Absolute NRBCs 0.0 10e3/uL 03/22/2023 6:39 PM [facility] Blood BLOOD SPECIMEN / Unknown Venipuncture / Unknown 03/22/2023 6:39 PM [employer] 03/22/2023 6:39 PM [employer] Ajay Saeed MD LAB - BLOOD ORDERABL ES [facility] Acute Care Lab [address] Lab (1st floor, no room number) [place] [address], [facility] [phone] * INR (03/22/2023 6:11 PM [employer]) INR 1.00 0.85 - 1.15 03/22/2023 6:37 PM [facility] Blood STRUCTURE OF LEFT UPPER LIMB / Unknown Venipuncture / Unknown 03/22/2023 6:11 PM [employer] 03/22/2023 6:25 PM [employer] Ajay Saeed MD LAB - BLOOD ORDERABL ES [facility] Acute Care Lab [address] Lab (1st floor, no room number) [place] [address], [facility] [phone] * Partial thromboplastin time (03/22/2023 6:11 PM [employer]) aPTT 27 22 - 38 Seconds 03/22/2023 6:38 PM [facility] Blood STRUCTURE OF LEFT UPPER LIMB / Unknown Venipuncture / Unknown 03/22/2023 6:11 PM [employer] 03/22/2023 6:25 PM [employer] Ajay Saeed MD LAB - BLOOD ORDERABL ES Performing Organization Address [facility]/ZIP Co de Phone Number [facility] Acute Care Lab [address] Lab (1st floor, no room number) [place] [address], [facility] [phone] * Magnesium (03/22/2023 6:11 PM [employer]) Magnesium 2.0 1.7 - 2.3 mg/dL 03/22/2023 6:51 PM [facility] Blood STRUCTURE OF LEFT UPPER LIMB / Unknown Venipuncture / Unknown 03/22/2023 6:11 PM [employer] 03/22/2023 6:25 PM [employer] Ajay Saeed MD LAB - BLOOD ORDERABL ES [facility] Acute Care Lab [address] Lab (1st floor, no room number) [place] [address], [facility] [phone] * Basic metabolic panel (03/22/2023 6:11 PM [employer]) Sodium 138 135 - 145 mmol/L 03/22/2023 6:51 PM [facility] Comment:Reference intervals for this test were updated on 12/02/2022 to more accurately reflect our healthy population. There may be differences in the flagging of prior results with similar values performed with this method. Interpretation of those prior results can be made in the context of the updated reference intervals. Potassium 4.0 3.4 - 5.3 mmol/L 03/22/2023 6:51 PM [facility] Chloride 103 98 - 107 mmol/L 03/22/2023 6:51 PM [facility] Carbon Dioxide (CO2) 26 22 - 29 mmol/L 03/22/2023 6:51 PM [facility] Anion Gap 9 7 - 15 mmol/L 03/22/2023 6:51 PM [facility] Urea Nitrogen 15.8 6.0 - 20.0 mg/dL 03/22/2023 6:51 PM [facility] Creatinine 0.66 0.51 - 0.95 mg/dL 03/22/2023 6:51 PM [facility] GFR Estimate >90 >60 mL/min/1. 73m2 03/22/2023 6:51 PM [facility] Calcium 9.4 8.6 - 10.0 mg/dL 03/22/2023 6:51 PM [facility] Glucose 87 70 - 99 mg/dL 03/22/2023 6:51 PM [facility] Blood STRUCTURE OF LEFT UPPER LIMB / Unknown Venipuncture / Unknown 03/22/2023 6:11 PM [employer] 03/22/2023 6:25 PM [employer] Ajay Saeed MD LAB - BLOOD ORDERABL ES [facility] Acute Care Lab [address] Lab (1st floor, no room number) [place] [address], [facility] [phone] from Last 3 Months Care Teams Gift Shop Manager Relationship Specialty Start Date End Date Soila Beasley PA-C [facility] [address] [place] [address] PCP - General Physician Dou[place] 03/22/23 Dodie Rosas DO [address] [place] [address] Physician Cardiovascular Disease 03/23/23
--- OUTSIDE RECORDS SUMMARY | 2023-03-26 09:02 | XMS_ITS | Clinical Summary ---
Author Name Unknown Organization [facility] Address [place], [place] [address] Care Team Providers Care Station Engineer Chief Name Role Phone Soila Beasley PA-C Primary Care Provider [phone] Allergies Active Allergy Reactions Criticality Noted Date [...] Department Care Team Description 03/12/2023 Lab Requisition [facility] C[facility]AL [facility] [phone] Soila Beasley PA-C from Last 3 Months [...] Comments Blood Pressure 118/72 05/14/2018 3:26 PM [employer] Pulse 83 05/14/2018 3:26 PM [employer] Temperature 36.8 ??C (98.2 ??F) 05/14/2018 3:26 PM CS T Respiratory Rate 16 07/25/2017 4:44 PM CDT Oxygen Saturation 97% 05/14/2018 3:26 PM [employer] Inhaled Oxygen Concentration - - Weight 82.4 kg (181 lb 11.2 oz) 05/14/2018 3:26 PM [employer] Height - - Body Mass Index - [...] TRACKING EVENT Routine 03/12/2023 9: 22 AM [employer] PERIPHERAL BLD MORPHOLOGY Routine 03/12/2023 9:22 AM [employer] RETICULOCYTES Routine 03/12/2023 9:22 AM [employer] from Last 3 Months Results * LAB TRACKING EVENT (03/12/2023 9:22 AM [employer]) Other (Other) Client Collect / Unknown 03/12/2023 9:22 AM [employer] 03/12/2023 3:31 PM [employer] Soila Beasley PA-C LAB BILL ONLY [facility]-CENTRAL LABOR[facility]ORY [address] [place] [address], * PERIPHERAL BLD MORPHOLOGY (03/12/2023 9:22 AM [employer]) Case Report Special Hematology Report ? Case: [id number] ? Authorizing Provider: ??Soila Beasley PA-C ?Collected: ? 03/12/2023921 ? Ordering Location: ? [facility] CENTRAL LAB ?Received: ?03/12/2023 1801 ? Pathologist: ? Sage Rogers, ? MD ? Specimen: ?Peripheral Blood ? 03/13/2023 11:[address] [facility] [employer] LABORAT[facility]-C ENTRAL LABORATORY Final Diagnosis PERIPHERAL BLOOD: Within normal limits 03/13/2023 11:[address] [facility] [employer] LABORATORY-C ENTRAL LABORATORY Comment At the time of this evaluation, the hemoglobin value is normal. The CBC/DIFF and peripheral smear morphology are within normal limits. There are no atypical features noted. Clinical correlation is recommended. This case was also reviewed by Liliya Simon MT, ([facility]). 03/13/2023 11:[address] [facility] LABORAT[facility]-C ENTRAL LABORATORY Clinical Information The patient is a 57-year-old female. Pertinent clinical information: Anemia and small IgG kappa monoclonal protein. Peripheral blood morphology 2020 ([id number]) was within normal limits. 03/13/2023 11:[address] [facility] LABORAT[facility]-C ENTRAL LABORATORY CBC and Differential HEMATOLOGY PARAMETERS Tested at: ??[facility] ? RESULTS ??EXPECTED VALUES WBC: ? 4.7 ?4.5-01f6029/cu mm ? RBC: ? 3.92 ? 4.00-5.20 mil/cumm ??DECREASED HGB: ? 12.1 ? 12-16 gm/dl ? HCT: ? 36.8 ? 33-51% ? MCV: ? 93.9 ? 80-100 fl ? NORMOCYTIC MCH: ? 30.9 ? 26-34 pg ? MCHC: ?32.9 ? 32-36 gm/dl ? NORMOCHROMIC PLT: ? 316 ?140-531v0259/u L ? Retic: ?? 1.0 ?0.5-1.5% ? Differential ?Absolute (%) ?Expected (%) ?(x10*9/L) ? (x10*9/L) Neutrophils: ?2.13 (45.5) ? 1.7-7.0 (42-72%) ? Lymphocytes: ?2.11 (45.1) ? 0.9-2.9 (20-44%) ?? Monocytes: ?0.3 (6.4) ?<0.9 (0-11%) ? Eosinophils: ?0.12 (2.6) ? <0.5 (0-2%) ? Basophils: ?0.02 (.4) ?<0.3 (<3.0%) ? 03/13/2023 11:09 AM [facility] [employer] LABORATORY-[facility] LAB[facility] Microscopic Description The final diagnosis is based on microscopic examination of an appropriately stained blood smear. 03/13/2023 11:09 AM [facility] [employer] LABORATORY-C ENTROH LABORATORY Additional Information Interpreted at [facility], Central Laboratory - [address], [place] [address] 03/13/2023 11:09 AM [facility] [employer] [facility] Blood (Peripheral Blood) 03/12/2023 9:22 AM [employer] 03/12/2023 6:01 PM [employer] Soila Beasley PA-C HEMATOLOGY [facility] [address] [place] [id number], [place] * RETICULOCYTES (03/12/2023 9:22 AM [employer]) RETIC% 1.0 0.5 - 1.5 % 03/12/2023 3:46 PM [employer] [facility] RETIC (ABSOLUTE) 0.04 0.03 - 0.08 mil/cu mm 03/12/2023 3:46 PM [employer] [facility] Blood BLOOD SPECIMEN / Unknown Client Collect / Unknown 03/12/2023 9:22 AM [employer] 03/12/2023 3:36 PM [employer] Soila Beasley PA-C HEMATOLOGY [facility] [address] [place] [address], [place] from Last 3 Months Care Teams Station Engineer Chief Relationship Specialty Start Date End Date Soila Beasley PA-C [address] [place] [address] PCP - General Emergency Medicine 04/15/21
--- OUTSIDE RECORDS SUMMARY | 2023-03-26 09:03 | XMS_ITS | Referral Summary ---
Author Name Unknown Organization [place] Address [facility] [place] [address] Care Team Providers Care Television Writer Name Role Phone Soila Beasley PA-C Primary Care Provider Dodie Rosas DO Unavailable [phone] Encounters Date Type Department Care Team Description 03/22/2023 Travel 03/22/2023 5:09 PM [employer]UTTER MACHINE - 03/22/2023 7:29 PM [employer] MACHINE Emergency [facility] Emergency Dept [address] [place] [address] Ajay Saeed MD Acute superficial venous thrombosis of lower extremity, right Discharge Disposition: Home or Self Care from Last 3 Months Allergies Active Allergy [...] days 45 tablet 0 03/22/2023 05/06/2023 Active Social History Tobacco Use Types Packs/Day [...] Comments Blood Pressure 121/65 03/22/2023 7:29 PM [employer] C[employer]TER MACHINE Pulse 80 03/22/2023 7:29 PM [employer] MACHINE Temperature 36.7 ??C (98 ??F) 03/22/2023 5:08 PM [employer] MACHINE Respiratory Rate 20 03/22/2023 7:29 PM [employer] C[employer] MACHINE Oxygen Saturation 98% 03/22/2023 7:29 PM [employer] MACHINE Inhaled Oxygen Concentration - - Weight 85 kg (187 lb 4.8 oz) 08/22/2021 9:06 AM CDT Height 168.9 cm (5' 6.5) 08/22/2021 9:06 AM CDT Body Mass Index 29.78 08/22/2021 9:06 AM CDT Plan of Treatment Upcoming Encounters Date Type Department Care Team (Late st Contact Info) Description 06/10/2023 1:45 PM CDT Office Visit [facility] [address] [facility] [address] [place] [address] Dodie Rosas DO [address] [place] [address] Procedures Procedure Name Priority Date/Time Associated Diagnosis Comments US LOWER EXTREMITY VENOUS DUPLEX RIGHT STAT 03/22/2023 6:40 PM H[employer] C[employer] MACHINE CBC WITH PLATELETS & DIFFERENTIAL STAT 03/22/2023 6:39 PM [employer] MACHINE CBC WITH PLATELETS AND DIFFERENTIAL STAT 03/22/2023 6:39 PM [employer] MACHINE MAGNESIUM STAT 03/22/2023 6:11 PM [employer]TER MACHINE BASIC METABOLIC PANEL STAT 03/22/2023 6:11 PM H[employer] C[employer]TER MACHINE PARTIAL THROMBOPLASTIN TIME STAT 03/22/2023 6:11 PM [employer] MACHINE INR STAT 03/22/2023 6:11 PM HAT [employer] CUTTER MACHINE from Last 3 Months Results * US Lower Extremity Venous Duplex Right (03/22/2023 6:40 PM HAT [employer] CUTTER MACHINE) Anatomical Region Laterality Modality Lower Extremity Ultrasound 03/22/2023 6:40 PM [employer] C[employer]TER MACHINE Impressions 03/22/2023 6:52 PM [employer] C[employer]TER MACHINE IMPRESSION: 1. ??No deep venous thrombosis in the right lower extremity. 2. ??Superficial thrombophlebitis within a varicosity in the medial right thigh. This extends for a length of 5 cm Narrative 03/22/2023 6:52 PM [employer]TER MACHINE EXAM: US LOWER EXTREMITY VENOUS DUPLEX RIGHT LOCATION: [facility] DATE: 03/22/2023 INDICATION: R medial thigh pain [...] US LOWER EXTREMITY VENOUS DUPLEX RIGHT LOCATION: [facility] DATE: 03/22/2023 INDICATION: R medial thigh pain [...] length of 5 [address] [facility] US ORDERABLES * CBC with platelets and differential (03/22/2023 6:39 PM H[employer] CUTTER MACHINE) WBC Count 6.4 4.0 - 11.0 10e3/uL 03/22/2023 6:39 PM [employer] MACHINE [facility] RBC Count 3.98 3.80 - 5.20 10e6/uL 03/22/2023 6:39 PM [employer] MACH[employer] [facility] Hemoglobin 12.2 11.7 - 15.7 g/dL 03/22/2023 6:39 PM [employer] MACHINE [facility] Hematocrit 37.3 35.0 - 47.0 % 03/22/2023 6:39 PM [employer] MACHINE [facility] MCV 94 78 - 100 fL 03/22/2023 6:39 PM [employer] MACHINE [facility] MCH 30.7 26.5 - 33.0 pg 03/22/2023 6:39 PM [employer] MACHINE [facility] MCHC 32.7 31.5 - 36.5 g/dL 03/22/2023 6:39 PM [employer] MACHINE [facility] RDW 12.9 10.0 - 15.0 % 03/22/2023 6:39 PM [employer] MACHINE [facility] Platelet Count 311 150 - 450 10e3/uL 03/22/2023 6:39 PM [employer] MACHINE [facility] % Neutrophils 59 % 03/22/2023 6:39 PM [employer] MACH[employer] [facility] % Lymphocytes 33 % 03/22/2023 6:39 PM [employer] MACH[employer] [facility] % Monocytes 6 % 03/22/2023 6:39 PM [employer] MACH[facility] % Eosinophils 1 % 03/22/2023 6:39 PM [employer] MACHINE [facility] % Basophils 1 % 03/22/2023 6:39 PM [employer] MACHINE [facility] % Immature Granulocytes 0 % 03/22/2023 6:39 PM [employer] MACHINE [facility] NRBCs per 100 WBC 0 <1 /100 024 6:39 PM [employer] MACHINE [facility] Absolute Neutrophils 3.8 1.6 - 8.3 10e3/uL 03/22/2023 6:39 PM [employer] MACHINE [facility] Absolute Lymphocytes 2.1 0.8 - 5.3 10e3/uL 03/22/2023 6:39 PM [employer] MACHINE [facility] Absolute Monocytes 0.4 0.0 - 1.3 10e3/uL 03/22/2023 6:39 PM [employer] MACHINE [facility] Absolute Eosinophils 0.1 0.0 - 0.7 10e3/uL 03/22/2023 6:39 PM [employer] MACHINE [facility] Absolute Basophils 0.0 0.0 - 0.2 10e3/uL 03/22/2023 6:39 PM [employer] MACHINE [facility] Absolute Immature Granulocytes 0.0 <=0.4 10e3/uL 03/22/2023 6:39 PM [employer] MACHINE [facility] Absolute NRBCs 0.0 10e3/uL 03/22/2023 6:39 PM [employer] MACHINE [facility] Blood BLOOD SPECIMEN / Unknown Venipuncture / Unknown 03/22/2023 6:39 PM H[employer] C[employer]TER MACHINE 03/22/2023 6:39 PM [employer] MACHINE Ajay Saeed MD LAB - BLOOD ORDERABL ES Performing Organization Address [facility]/ZIP Co de Phone Number [facility] [address] Lab (1st floor, no room number) [place] [address], [facility] [phone] * INR (03/22/2023 6:11 PM H[employer] C[employer]TER MACHINE) INR 1.00 0.85 - 1.15 03/22/2023 6:37 PM [employer] MACHINE [facility] Blood STRUCTURE OF LEFT UPPER LIMB / Unknown Venipuncture / Unknown 03/22/2023 6:11 PM [employer] MACHINE 03/22/2023 6:25 PM [employer] MACHINE Ajay Saeed MD LAB - BLOOD ORDERABL ES Performing Organization Address [facility]/ZIP Co de Phone Number [facility] [address] Lab (1st floor, no room number) [place] [address], [facility] [phone] * Partial thromboplastin time (03/22/2023 6:11 PM H[employer] MACHINE) aPTT 27 22 - 38 Seconds 03/22/2023 6:38 PM [employer] MACHINE [facility] Blood STRUCTURE OF LEFT UPPER LIMB / Unknown Venipuncture / Unknown 03/22/2023 6:11 PM H[employer] C[employer]TER MACHINE 03/22/2023 6:25 PM [employer] MACHINE Ajay Saeed MD LAB - BLOOD ORDERABL ES Performing Organization Address [facility]/ZIP Co de Phone Number [facility] Acute Care Lab [address] Lab (1st floor, no room number) [place] [address], [facility] [phone] * Magnesium (03/22/2023 6:11 PM HAT [employer] C[employer]TER MACHINE) Magnesium 2.0 1.7 - 2.3 mg/dL 03/22/2023 6:51 PM [employer] MACHINE [facility] Blood STRUCTURE OF LEFT UPPER LIMB / Unknown Venipuncture / Unknown 03/22/2023 6:11 PM H[employer] C[employer]TER MACHINE 03/22/2023 6:25 PM [employer] C[employer]TER MACHINE Ajay Saeed MD LAB - BLOOD ORDERABL ES LABORATORY [facility] Acute Care Lab [address] Lab (1st floor, no room number) [place] [address], [facility] [phone] * Basic metabolic panel (03/22/2023 6:11 PM HAT [employer] C[employer]TER MACHINE) Sodium 138 135 - 145 mmol/L 03/22/2023 6:51 PM [facility] Comment:Reference intervals for this test were updated on 12/02/2022 to more accurately reflect our healthy population. There may be differences in the flagging of prior results with similar values performed with this method. Interpretation of those prior results can be made in the context of the updated reference intervals. Potassium 4.0 3.4 - 5.3 mmol/L 03/22/2023 6:51 PM [facility] Chloride 103 98 - 107 mmol/L 03/22/2023 6:51 PM [facility] Carbon Dioxide (CO2) 26 22 - 29 mmol/L 03/22/2023 6:51 PM [facility] Anion Gap 9 7 - 15 mmol/L 03/22/2023 6:51 PM [facility] Urea Nitrogen 15.8 6.0 - 20.0 mg/dL 03/22/2023 6:51 PM [facility] Creatinine 0.66 0.51 - 0.95 mg/dL 03/22/2023 6:51 PM [facility] GFR Estimate >90 >60 mL/min/1. 73m2 03/22/2023 6:51 PM [facility] Calcium 9.4 8.6 - 10.0 mg/dL 03/22/2023 6:51 PM [facility] Glucose 87 70 - 99 mg/dL 03/22/2023 6:51 PM [facility] Blood STRUCTURE OF LEFT UPPER LIMB / Unknown Venipuncture / Unknown 03/22/2023 6:11 PM H[employer] MACHINE 03/22/2023 6:25 PM [employer] MACHINE Ajay Saeed MD LAB - BLOOD ORDERABL ES [facility] Acute Care Lab [address] [facility] [address] Lab (1st floor, no room number) [place] [address], [facility] [phone] from Last 3 Months Care Teams Television Writer Relationship Specialty Start Date End Date Soila Beasley PA-C [facility] [address] [place] [address] PCP - General Physician Claims Correspondence Clerk 03/22/23 Dodie Rosas DO [address] [place] [address] Physician Cardiovascular Disease 03/23/23
--- OUTSIDE RECORDS SUMMARY | 2023-03-26 09:03 | XMS_ITS | Encounter Summary ---
Author Name Unknown Organization [place] Address [address] [facility] [address] Care Team Providers Care Armor Reconnaissance Vehicle Crewman Name Role Phone Soila Beasley PA-C Primary Care Provider Encounter Details Date Type Department Care Team (Latest Contact Info) Description 03/22/2023 Travel Social History Tobacco Use Types Packs/Day Years [...] Description 06/10/2023 1:45 PM CDT Office Visit [facility] [address] [place] [phone] Dodie Rosas DO [address] [facility] [place], [place] [phone] documented as of this encounter Visit Diagnoses Not on filedocumented in this encounter Care Teams Armor Reconnaissance Vehicle Crewman Relationship Specialty Start Date End Date Soila Beasley PA-C [facility] [address] [place], [place] [phone] PCP - General Physician Flat Screen Worker 03/22/23 documented as of this encounter
--- OUTSIDE RECORDS SUMMARY | 2023-03-26 09:03 | XMS_ITS | Encounter Summary ---
Author Name Unknown Organization [facility] Address [facility] [place] [address] Care Team Providers Care Garage Door Installer Name Role Phone Soila Beasley PA-C Primary Care Provider Reason for Visit * Reason Comments Leg Pain Encounter Details Date Type Department Care Team (Late st Contact Info) Description 03/22/2023 5:09 PM PEST CONTROL SPECIALIST - 03/22/2023 7:29 PM PEST CONTROL SPECIALIST Emergency [facility] Emergency Dept [address] [place] [address] Ajay Saeed MD [address] [facility] [place], [address] [address] Acute superficial venous thrombosis of lower extremity, right Discharge Disposition: Home or Self Care Social [...] Comments Blood Pressure 121/65 03/22/2023 7:29 PM PEST CONTROL SPECIALIST Pulse 80 03/22/2023 7:29 PM PEST CONTROL SPECIALIST Temperature 36.7 ??C (98 ??F) 03/22/2023 5:08 PM PEST CONTROL SPECIALIST Respiratory Rate 20 03/22/2023 7:29 PM PEST CONTROL SPECIALIST Oxygen Saturation 98% 03/22/2023 7:29 PM PEST CONTROL SPECIALIST Inhaled Oxygen Concentration - - Weight - - Height - - Body Mass Index - - documented in this encounter Discharge Instructions * Attachments The following attachments cannot be sent through Care Everywhere. * Thrombophlebitis: Superficial (Peruvian) documented in this encounter Medications at Time of Discharge Medication Sig Dispensed Refills Start Date End Date rivaroxaban ANTICOAGULANT (XARELTO) 10 MG TABS tablet Take 1 tablet (10 mg) by mouth daily (with dinner) for 45 days 45 tablet 0 03/22/2023 05/06/2023 ferrous sulfate (FEROSUL) 325 (65 Fe) MG tablet Take 325 mg by mouth daily as needed 0 documented as of this encounter ED Notes * Anais Reyna RN - 03/22/2023 5:06 PM CST Pt arrives with complain of pain in right upper thigh originating in groun area and going down intoher neck. Has a vericose vein in this area. No redness, warmth, or swelling. A&Ox4. No recent travel. No history of DVT or clots, is a smoker. CONTROL SPECIALIST * Ajay Saeed MD - 03/22/2023 4:59 PM CST History Chief Complaint: Leg Pain The history is provided by the patient. Kandis Caceres is a 57 year old female who presents with right upper thigh pain. Patient reports that she has pain when she coughs. She states that the pain varies when she coughed. Patient has a varicose vein that area. She states that she has never felt pain in that area. Denies chest pain, fever, shortness of breath, leg swelling, or calf pain. Independent Historian: None - Patient Only Review of External Notes: None Medications: The patient is currently on no regular medications. Past Medical History: Palpitations Hypersomnia Insufficient Sleep Syndrome Apnea Sleep Obstructive Nicotine Dependence Physical Exam Patient Vitals for the past 24 hrs: BP Temp Temp src Pulse Resp SpO2 03/22/23 1929 121/65 -- -- 80 20 98 % 03/22/23 1708 (!) 141/68 98 ??F (36.7 ??C) Temporal 85 18 100 % Physical Exam General: Sitting on the ED chair HEENT: Normocephalic, atraumatic Cardiac: Warm and well perfused, regular rate and rhythm Pulm: Breathing comfortably, no accessory muscle usage, no conversational dyspnea, and lungs clear bilaterally GI: Abdomen soft, nontender, no rigidity or guarding MSK: No bony deformities, no edema BLE, no calf tenderness BLE, varicosity over the medial right thigh is tender to palpation without surrounding erythema Skin: Warm and dry Neuro: Moves all extremities Psych: Pleasant mood and affect Emergency Department Course Imaging: US Lower Extremity Venous Duplex Right Final Result IMPRESSION: 1. No deep venous thrombosis in the right lower extremity. 2. Superficial thrombophlebitis within a varicosity in the medial right thigh. This extends for a length of 5 cm Laboratory: Labs Ordered and Resulted from Time of ED Arrival to Time of ED Departure INR - Normal Result Value INR 1.00 PARTIAL THROMBOPLASTIN TIME - Normal aPTT 27 BASIC METABOLIC PANEL - Normal Sodium 138 Potassium 4.0 Chloride 103 Carbon Dioxide (CO2) 26 Anion Gap 9 Urea Nitrogen 15.8 Creatinine 0.66 GFR Estimate >90 Calcium 9.4 Glucose 87 MAGNESIUM - Normal Magnesium 2.0 CBC WITH PLATELETS AND DIFFERENTIAL WBC Count 6.4 RBC Count 3.98 Hemoglobin 12.2 Hematocrit 37.3 MCV 94 MCH 30.7 MCHC 32.7 RDW 12.9 Platelet Count 311 % Neutrophils 59 % Lymphocytes 33 % Monocytes 6 % Eosinophils 1 % Basophils 1 % Immature Granulocytes 0 NRBCs per 100 WBC 0 Absolute Neutrophils 3.8 Absolute Lymphocytes 2.1 Absolute Monocytes 0.4 Absolute Eosinophils 0.1 Absolute Basophils 0.0 Absolute Immature Granulocytes 0.0 Absolute NRBCs 0.0 Emergency Department Course & Assessments: Interventions: Medications - No data to display Assessments: 1751 I obtained history and examined the patient as noted above. Independent Interpretation (X-rays, CTs, rhythm strip): None Consultations/Discussion of Management or Tests: None Social Determinants of Health affecting care: None Disposition: The patient was discharged to home. Impression & Plan Medical Decision Makin-year-old female presents with right medial thigh pain as above. She also complains of noting a firm lump over the same location today. No history of DVT. She does have a history of varicose veins.No calf tenderness and no cardiopulmonary symptoms concerning for PE. Lab work including coagulation studies was obtained and overall within normal range. RLE ultrasound shows a superficial venous thrombosis that is 5 cm in length and the varicosity in the right thigh. Given the proximity to the deep veins, location above the knee, and 5 cm length, I do think that prophylactic Xarelto is warranted. The patient is agreeable as well. Plan is for discharge home on a 45-day course of 10 mg of Xarelto, PCP follow-up for further care. Diagnosis: ICD-10-CM 1. Acute superficial venous thrombosis of lower extremity, right I82.811 Discharge Medications: Discharge Medication List as of 03/22/2023 7:23 PM START taking these medications Details rivaroxaban ANTICOAGULANT (XARELTO) 10 MG TABS tablet Take 1 tablet (10 mg) by mouth daily (with dinner) for 45 days, Disp-45 tablet, R-0, E-Prescribe Scribe Disclosure: IFlorian, am serving as a scribe at 5:55 PM on 03/22/2023 to document services personally performed by Ajay Saeed MD based on my observations and the provider's statements to me. 03/22/2023 Ajay Saeed MD King, Colin, MD 03/22/232150 CONTROL SPECIALIST documented in this encounter Plan of Treatment Upcoming Encounters Date Type Department Care Team (Late st Contact Info) Description 06/10/2023 1:45 PM CDT Office Visit [facility] [address] [facility] [address] [place] [phone] Dodie Rosas DO [address] [place] [address] documented as of this encounter Procedures Procedure Name Priority Date/Time Associated Diagnosis Comments US LOWER EXTREMITY VENOUS DUPLEX RIGHT STAT 03/22/2023 6:40 PM PEST CONTROL SPECIALIST CBC WITH PLATELETS AND DIFFERENTIAL STAT 03/22/2023 6:39 PM PEST CONTROL SPECIALIST CBC WITH PLATELETS & DIFFERENTIAL STAT 03/22/2023 6:39 PM PEST CONTROL SPECIALIST INR STAT 03/22/2023 6:11 PM PEST CONTROL SPECIALIST PARTIAL THROMBOPLASTIN TIME STAT 03/22/2023 6:11 PM PEST CONTROL SPECIALIST MAGNESIUM STAT 03/22/2023 6:11 PM PEST CONTROL SPECIALIST BASIC METABOLIC PANEL STAT 03/22/2023 6:11 PM PEST CONTROL SPECIALIST documented in this encounter Results * US Lower Extremity Venous Duplex Right (03/22/2023 6:40 PM PEST CONTROL SPECIALIST) Anatomical Region Laterality Modality Lower Extremity Ultrasound 03/22/2023 6:40 PM PEST CONTROL SPECIALIST Impressions 03/22/2023 6:52 PM PEST CONTROL SPECIALIST IMPRESSION: 1. ??No deep venous thrombosis in the right lower extremity. 2. ??Superficial thrombophlebitis within a varicosity in the medial right thigh. This extends for a length of 5 cm Narrative 03/22/2023 6:52 PM PEST CONTROL SPECIALIST EXAM: US LOWER EXTREMITY VENOUS DUPLEX RIGHT LOCATION: [facility] DATE: 03/22/2023 INDICATION: R medial thigh pain [...] US LOWER EXTREMITY VENOUS DUPLEX RIGHT LOCATION: [facility] DATE: 03/22/2023 INDICATION: R medial thigh pain [...] length of 5 cm Ajay Saeed [place] [facility]LES * CBC with platelets and differential (03/22/2023 6:39 PM PEST CONTROL SPECIALIST) WBC Count 6.4 4.0 - 11.0 10e3/uL 03/22/2023 6:39 PM PEST CONTROL SPECIALIST [facility] RBC Count 3.98 3.80 - 5.20 10e6/uL 03/22/2023 6:39 PM PEST CONTROL SPECIALIST [facility] Hemoglobin 12.2 11.7 - 15.7 g/dL 03/22/2023 6:39 PM PEST CONTROL SPECIALIST [facility] Hematocrit 37.3 35.0 - 47.0 % 03/22/2023 6:39 PM PEST CONTROL SPECIALIST [facility] MCV 94 78 - 100 fL 03/22/2023 6:39 PM PEST CONTROL SPECIALIST [facility] MCH 30.7 26.5 - 33.0 pg 03/22/2023 6:39 PM PEST CONTROL SPECIALIST [facility] MCHC 32.7 31.5 - 36.5 g/dL 03/22/2023 6:39 PM PEST CONTROL SPECIALIST [facility] RDW 12.9 10.0 - 15.0 % 03/22/2023 6:39 PM PEST CONTROL SPECIALIST [facility] Platelet Count 311 150 - 450 10e3/uL 03/22/2023 6:39 PM PEST CONTROL SPECIALIST [facility] % Neutrophils 59 % 03/22/2023 6:39 PM PEST CONTROL SPECIALIST [facility] % Lymphocytes 33 % 03/22/2023 6:39 PM PEST CONTROL SPECIALIST [facility] % Monocytes 6 % 03/22/2023 6:39 PM PEST CONTROL SPECIALIST [facility] % Eosinophils 1 % 03/22/2023 6:39 PM PEST CONTROL SPECIALIST [facility] % Basophils 1 % 03/22/2023 6:39 PM PEST CONTROL SPECIALIST [facility] % Immature Granulocytes 0 % 03/22/2023 6:39 PM PEST CONTROL SPECIALIST [facility] NRBCs per 100 WBC 0 <1 /100 024 6:39 PM PEST CONTROL SPECIALIST [facility] Absolute Neutrophils 3.8 1.6 - 8.3 10e3/uL 03/22/2023 6:39 PM PEST CONTROL SPECIALIST [facility] Absolute Lymphocytes 2.1 0.8 - 5.3 10e3/uL 03/22/2023 6:39 PM PEST CONTROL SPECIALIST [facility] Absolute Monocytes 0.4 0.0 - 1.3 10e3/uL 03/22/2023 6:39 PM PEST CONTROL SPECIALIST [facility] Absolute Eosinophils 0.1 0.0 - 0.7 10e3/uL 03/22/2023 6:39 PM PEST CONTROL SPECIALIST [facility] Absolute Basophils 0.0 0.0 - 0.2 10e3/uL 03/22/2023 6:39 PM PEST CONTROL SPECIALIST [facility] Absolute Immature Granulocytes 0.0 <=0.4 10e3/uL 03/22/2023 6:39 PM PEST CONTROL SPECIALIST [facility] Absolute NRBCs 0.0 10e3/uL 03/22/2023 6:39 PM PEST CONTROL SPECIALIST [facility] Blood BLOOD SPECIMEN / Unknown Venipuncture / Unknown 03/22/2023 6:39 PM PEST CONTROL SPECIALIST 03/22/2023 6:39 PM PEST CONTROL SPECIALIST Ajay Saeed MD LAB - BLOOD ORDERABL ES [facility] [address] (1st floor, no room number) [place] [address], [facility] [phone] * Magnesium (03/22/2023 6:11 PM PEST CONTROL SPECIALIST) Magnesium 2.0 1.7 - 2.3 mg/dL 03/22/2023 6:51 PM PEST CONTROL SPECIALIST [facility] Blood STRUCTURE OF LEFT UPPER LIMB / Unknown Venipuncture / Unknown 03/22/2023 6:11 PM PEST CONTROL SPECIALIST 03/22/2023 6:25 PM PEST CONTROL SPECIALIST Ajay Saeed MD LAB - BLOOD ORDERABL ES [facility] Lab [address] Lab (1st floor, no room number) [place] [address], [facility] [phone] * Basic metabolic panel (03/22/2023 6:11 PM PEST CONTROL SPECIALIST) Sodium 138 135 - 145 mmol/L 03/22/2023 6:51 PM PEST CONTROL SPECIALIST [facility] Comment:Reference intervals for this test were updated on 12/02/2022 to more accurately reflect our healthy population. There may be differences in the flagging of prior results with similar values performed with this method. Interpretation of those prior results can be made in the context of the updated reference intervals. Potassium 4.0 3.4 - 5.3 mmol/L 03/22/2023 6:51 PM PEST CONTROL SPECIALIST LABORATORY Chloride 103 98 - 107 mmol/L 03/22/2023 6:51 PM PEST CONTROL SPECIALIST LABORATORY Carbon Dioxide (CO2) 26 22 - 29 mmol/L 03/22/2023 6:51 PM PEST CONTROL SPECIALIST LABORATORY Anion Gap 9 7 - 15 mmol/L 03/22/2023 6:51 PM PEST CONTROL SPECIALIST LABORATORY Urea Nitrogen 15.8 6.0 - 20.0 mg/dL 03/22/2023 6:51 PM PEST CONTROL SPECIALIST LABORATORY Creatinine 0.66 0.51 - 0.95 mg/dL 03/22/2023 6:51 PM PEST CONTROL SPECIALIST LABORATORY GFR Estimate >90 >60 mL/min/1. 73m2 03/22/2023 6:51 PM PEST CONTROL SPECIALIST LABORATORY Calcium 9.4 8.6 - 10.0 mg/dL 03/22/2023 6:51 PM PEST CONTROL SPECIALIST LABORATORY Glucose 87 70 - 99 mg/dL 03/22/2023 6:51 PM PEST CONTROL SPECIALIST LABORATORY Blood STRUCTURE OF LEFT UPPER LIMB / Unknown Venipuncture / Unknown 03/22/2023 6:11 PM PEST CONTROL SPECIALIST 03/22/2023 6:25 PM PEST CONTROL SPECIALIST Ajay Saeed MD LAB - BLOOD ORDERABL ES [facility] Lab [address] Lab (1st floor, no room number) [place] [address], [facility] [phone] * Partial thromboplastin time (03/22/2023 6:11 PM PEST CONTROL SPECIALIST) aPTT 27 22 - 38 Seconds 03/22/2023 6:38 PM PEST CONTROL SPECIALIST LABORATORY Blood STRUCTURE OF LEFT UPPER LIMB / Unknown Venipuncture / Unknown 03/22/2023 6:11 PM PEST CONTROL SPECIALIST 03/22/2023 6:25 PM PEST CONTROL SPECIALIST Ajay Saeed MD LAB - BLOOD ORDERABL ES [facility] Lab [address] Lab (1st floor, no room number) [place] [address], [facility] [phone] * INR (03/22/2023 6:11 PM PEST CONTROL SPECIALIST) INR 1.00 0.85 - 1.15 03/22/2023 6:37 PM PEST CONTROL SPECIALIST LABORATORY Blood STRUCTURE OF LEFT UPPER LIMB / Unknown Venipuncture / Unknown 03/22/2023 6:11 PM PEST CONTROL SPECIALIST 03/22/2023 6:25 PM PEST CONTROL SPECIALIST Ajay Saeed MD LAB - BLOOD ORDERABL ES LABORATORY [facility] Lab [address] [employer] Lab (1st floor, no room number) [place] [address], [facility] [phone] documented in this encounter Visit Diagnoses Diagnosis Acute superficial venous thrombosis of lower extremity, right documented in this encounter Care Teams Garage Door Installer Relationship Specialty Start Date End Date Soila Beasley PA-C [facility] [address] [place] [address] PCP - General Physician Sculpture Instructor 03/22/23 documented as of this encounter
== END 2023-03-26 08:55 | disposition home or self-care (01) ==
LOC: LKVREF 08:55
PROVIDERS: PCP Physician Assistant Medical; Visit Provider Physician Assistant Medical
DX: I82.811 Embolism and thrombosis of superficial veins of right lower extremity (principal); R74.02 Elevation of levels of lactic acid dehydrogenase [LDH]
CPT/HCPCS: 81240; 81241; 82378; 83615; 85303; 85306

== ENCOUNTER 2023-03-30 14:51 | Outpatient (CLI) | payer BC, SELFPAY ==
--- OUTSIDE RECORDS SUMMARY | 2023-03-30 14:55 | XMS_ITS | Clinical Summary ---
Author Name Unknown Organization [facility] Address [facility] [place] [address] Care Team Providers Care Mint Wafer Depositor Name Role Phone Soila Beasley PA-C Primary Care Provider Dodie Rosas DO Unavailable [phone] Allergies Active Allergy Reactions Criticality Noted Date [...] Department Care Team Description 03/22/2023 5:09 PM SLITTER SERVICE AND SETTER - 03/22/2023 7:29 PM SLITTER SERVICE AND SETTER Emergency [facility] Emergency Dept [address] [place] [phone] Ajay Saeed MD Acute superficial venous thrombosis [...] Comments Blood Pressure 121/65 03/22/2023 7:29 PM SLITTER SERVICE AND SETTER Pulse 80 03/22/2023 7:29 PM SLITTER SERVICE AND SETTER Temperature 36.7 ??C (98 ??F) 03/22/2023 5:08 PM SLITTER SERVICE AND SETTER Respiratory Rate 20 03/22/2023 7:29 PM SLITTER SERVICE AND SETTER Oxygen Saturation 98% 03/22/2023 7:29 PM SLITTER SERVICE AND SETTER Inhaled Oxygen Concentration - - Weight 85 kg (187 lb 4.8 oz) 08/22/2021 9:06 AM CDT Height 168.9 cm (5' 6.5) 08/22/2021 9:06 AM CDT Body Mass Index 29.78 08/22/2021 9:06 AM CDT Plan of Treatment Upcoming Encounters Date Type Department Care Team (Late st Contact Info) Description 06/10/2023 1:45 PM CDT Office Visit [facility] [address] [facility] [address] [place] [address] Dodie Rosas DO [address] [place], [place] [phone] Health Maintenance Due Date Last Done Comments [...] VENOUS DUPLEX RIGHT STAT 03/22/2023 6:40 PM SLITTER SERVICE AND SETTER CBC WITH PLATELETS & DIFFERENTIAL STAT 03/22/2023 6:39 PM SLITTER SERVICE AND SETTER CBC WITH PLATELETS AND DIFFERENTIAL STAT 03/22/2023 6:39 PM SLITTER SERVICE AND SETTER MAGNESIUM STAT 03/22/2023 6:11 PM SLITTER SERVICE AND SETTER BASIC METABOLIC PANEL STAT 03/22/2023 6:11 PM SLITTER SERVICE AND SETTER PARTIAL THROMBOPLASTIN TIME STAT 03/22/2023 6:11 PM SLITTER SERVICE AND SETTER INR STAT 03/22/2023 6:11 PM SLITTER SERVICE AND SETTER from Last 3 Months Results * US Lower Extremity Venous Duplex Right (03/22/2023 6:40 PM SLITTER SERVICE AND SETTER) Anatomical Region Laterality Modality Lower Extremity Ultrasound 03/22/2023 6:40 PM SLITTER SERVICE AND SETTER Impressions 03/22/2023 6:52 PM SLITTER SERVICE AND SETTER IMPRESSION: 1. ??No deep venous thrombosis in the right lower extremity. 2. ??Superficial thrombophlebitis within a varicosity in the medial right thigh. This extends for a length of 5 cm Narrative 03/22/2023 6:52 PM SLITTER SERVICE AND SETTER EXAM: US LOWER EXTREMITY VENOUS DUPLEX RIGHT LOCATION: [facility] DATE: 03/22/2023 INDICATION: R medial thigh pain [...] US LOWER EXTREMITY VENOUS DUPLEX RIGHT LOCATION: [facility] DATE: 03/22/2023 INDICATION: R medial thigh pain [...] length of 5 cm Ajay Saeed MD [facility] US ORDERABLES * CBC with platelets and differential (03/22/2023 6:39 PM SLITTER SERVICE AND SETTER) WBC Count 6.4 4.0 - 11.0 10e3/uL 03/22/2023 6:39 PM SLITTER SERVICE AND SETTER [facility] RBC Count 3.98 3.80 - 5.20 10e6/uL 03/22/2023 6:39 PM SLITTER SERVICE AND SETTER [facility] Hemoglobin 12.2 11.7 - 15.7 g/dL 03/22/2023 6:39 PM SLITTER SERVICE AND SETTER [facility] Hematocrit 37.3 35.0 - 47.0 % 03/22/2023 6:39 PM SLITTER SERVICE AND SETTER [facility] MCV 94 78 - 100 fL 03/22/2023 6:39 PM SLITTER SERVICE AND SETTER [facility] MCH 30.7 26.5 - 33.0 pg 03/22/2023 6:39 PM SLITTER SERVICE AND SETTER [facility] MCHC 32.7 31.5 - 36.5 g/dL 03/22/2023 6:39 PM SLITTER SERVICE AND SETTER [facility] RDW 12.9 10.0 - 15.0 % 03/22/2023 6:39 PM SLITTER SERVICE AND SETTER [facility] Platelet Count 311 150 - 450 10e3/uL 03/22/2023 6:39 PM SLITTER SERVICE AND SETTER [facility] % Neutrophils 59 % 03/22/2023 6:39 PM SLITTER SERVICE AND SETTER [facility] % Lymphocytes 33 % 03/22/2023 6:39 PM SLITTER SERVICE AND SETTER [facility] % Monocytes 6 % 03/22/2023 6:39 PM SLITTER SERVICE AND SETTER [facility] % Eosinophils 1 % 03/22/2023 6:39 PM SLITTER SERVICE AND SETTER [facility] % Basophils 1 % 03/22/2023 6:39 PM SLITTER SERVICE AND SETTER [facility] % Immature Granulocytes 0 % 03/22/2023 6:39 PM SLITTER SERVICE AND SETTER [facility] NRBCs per 100 WBC 0 <1 /100 024 6:39 PM SLITTER SERVICE AND SETTER [facility] Absolute Neutrophils 3.8 1.6 - 8.3 10e3/uL 03/22/2023 6:39 PM SLITTER SERVICE AND SETTER [facility] Absolute Lymphocytes 2.1 0.8 - 5.3 10e3/uL 03/22/2023 6:39 PM SLITTER SERVICE AND SETTER [facility] Absolute Monocytes 0.4 0.0 - 1.3 10e3/uL 03/22/2023 6:39 PM SLITTER SERVICE AND SETTER [facility] Absolute Eosinophils 0.1 0.0 - 0.7 10e3/uL 03/22/2023 6:39 PM SLITTER SERVICE AND SETTER [facility] Absolute Basophils 0.0 0.0 - 0.2 10e3/uL 03/22/2023 6:39 PM SLITTER SERVICE AND SETTER [facility] Absolute Immature Granulocytes 0.0 <=0.4 10e3/uL 03/22/2023 6:39 PM SLITTER SERVICE AND SETTER [facility] Absolute NRBCs 0.0 10e3/uL 03/22/2023 6:39 PM SLITTER SERVICE AND SETTER [facility] Blood BLOOD SPECIMEN / Unknown Venipuncture / Unknown 03/22/2023 6:39 PM SLITTER SERVICE AND SETTER 03/22/2023 6:39 PM SLITTER SERVICE AND SETTER Ajay Saeed MD LAB - BLOOD ORDERABL ES [facility] [address] Lab (1st floor, no room number) [place] [address], [facility] [phone] * INR (03/22/2023 6:11 PM SLITTER SERVICE AND SETTER) INR 1.00 0.85 - 1.15 03/22/2023 6:37 PM SLITTER SERVICE AND SETTER [facility] Blood STRUCTURE OF LEFT UPPER LIMB / Unknown Venipuncture / Unknown 03/22/2023 6:11 PM SLITTER SERVICE AND SETTER 03/22/2023 6:25 PM SLITTER SERVICE AND SETTER Ajay Saeed MD LAB - BLOOD ORDERABL ES [facility] [address] Lab (1st floor, no room number) [place] [address], [facility] [phone] * Partial thromboplastin time (03/22/2023 6:11 PM SLITTER SERVICE AND SETTER) aPTT 27 22 - 38 Seconds 03/22/2023 6:38 PM SLITTER SERVICE AND SETTER [facility] Blood STRUCTURE OF LEFT UPPER LIMB / Unknown Venipuncture / Unknown 03/22/2023 6:11 PM SLITTER SERVICE AND SETTER 03/22/2023 6:25 PM SLITTER SERVICE AND SETTER Ajay Saeed MD LAB - BLOOD ORDERABL ES Performing Organization Address [facility]/ZIP Co de Phone Number [facility] [address] Lab (1st floor, no room number) [place] [address], [place] [phone] * Magnesium (03/22/2023 6:11 PM SLITTER SERVICE AND SETTER) Magnesium 2.0 1.7 - 2.3 mg/dL 03/22/2023 6:51 PM SLITTER SERVICE AND SETTER [facility] Blood STRUCTURE OF LEFT UPPER LIMB / Unknown Venipuncture / Unknown 03/22/2023 6:11 PM SLITTER SERVICE AND SETTER 03/22/2023 6:25 PM SLITTER SERVICE AND SETTER Ajay Saeed MD LAB - BLOOD ORDERABL ES [facility] [address] Lab (1st floor, no room number) [place] [address], [facility] [phone] * Basic metabolic panel (03/22/2023 6:11 PM SLITTER SERVICE AND SETTER) Sodium 138 135 - 145 mmol/L 03/22/2023 6:51 PM SLITTER SERVICE AND SETTER [facility] Comment:Reference intervals for this test were updated on 12/02/2022 to more accurately reflect our healthy population. There may be differences in the flagging of prior results with similar values performed with this method. Interpretation of those prior results can be made in the context of the updated reference intervals. Potassium 4.0 3.4 - 5.3 mmol/L 03/22/2023 6:51 PM SLITTER SERVICE AND SETTER LABORATORY Chloride 103 98 - 107 mmol/L 03/22/2023 6:51 PM SLITTER SERVICE AND SETTER LABORATORY Carbon Dioxide (CO2) 26 22 - 29 mmol/L 03/22/2023 6:51 PM SLITTER SERVICE AND SETTER LABORATORY Anion Gap 9 7 - 15 mmol/L 03/22/2023 6:51 PM SLITTER SERVICE AND SETTER LABORATORY Urea Nitrogen 15.8 6.0 - 20.0 mg/dL 03/22/2023 6:51 PM SLITTER SERVICE AND SETTER LABORATORY Creatinine 0.66 0.51 - 0.95 mg/dL 03/22/2023 6:51 PM SLITTER SERVICE AND SETTER LABORATORY GFR Estimate >90 >60 mL/min/1. 73m2 03/22/2023 6:51 PM SLITTER SERVICE AND SETTER LABORATORY Calcium 9.4 8.6 - 10.0 mg/dL 03/22/2023 6:51 PM SLITTER SERVICE AND SETTER LABORATORY Glucose 87 70 - 99 mg/dL 03/22/2023 6:51 PM SLITTER SERVICE AND SETTER LABORATORY Blood STRUCTURE OF LEFT UPPER LIMB / Unknown Venipuncture / Unknown 03/22/2023 6:11 PM SLITTER SERVICE AND SETTER 03/22/2023 6:25 PM SLITTER SERVICE AND SETTER Ajay Saeed MD LAB - BLOOD ORDERABL ES [facility] [address] Lab (1st floor, no room number) [place] [address], [facility] [phone] from Last 3 Months Care Teams Mint Wafer Depositor Relationship Specialty Start Date End Date Soila Beasley PA-C [facility] [address] [place] [address] PCP - General Physician Pilot Fuel Engineer 03/22/23 Dodie Rosas DO [address] [place] [address] Physician Cardiovascular Disease 03/23/23
--- OUTSIDE RECORDS SUMMARY | 2023-03-30 14:55 | XMS_ITS | Encounter Summary ---
Author Name Unknown Organization [facility] Address [address] [place] [address] Care Team Providers Care Bonding Agent Name Role Phone Soila Beasley PA-C Primary [...] Description 06/10/2023 1:45 PM CDT Office Visit [facility] [address] [facility] [address] [place] [phone] Dodie Rosas DO [address] [facility] [address] [place], [place] [address] documented as of this encounter Visit Diagnoses Not on filedocumented in this encounter Care Teams Bonding Agent Relationship Specialty Start Date End Date Soila Beasley PA-C [facility] [address] [place], [place] [address] PCP - General Physician Mattress Specialist 03/22/23 documented as of this encounter
--- OUTSIDE RECORDS SUMMARY | 2023-03-30 14:55 | XMS_ITS | Clinical Summary ---
Author Name Unknown Organization [facility] Address [place], [place] [address] Care Team Providers Care Facs Teacher Name Role Phone Soila Beasley PA-C Primary Care Provider [phone] Allergies Active Allergy Reactions Criticality Noted Date [...] Department Care Team Description 03/12/2023 Lab Requisition [facility] [phone] Soila Beasley PA-C from Last 3 Months [...] Comments Blood Pressure 118/72 05/14/2018 3:26 PM AUDIOVISUAL PRODUCTION SPECIALIST Pulse 83 05/14/2018 3:26 PM AUDIOVISUAL PRODUCTION SPECIALIST Temperature 36.8 ??C (98.2 ??F) 05/14/2018 3:26 PM CS T Respiratory Rate 16 07/25/2017 4:44 PM CDT Oxygen Saturation 97% 05/14/2018 3:26 PM AUDIOVISUAL PRODUCTION SPECIALIST Inhaled Oxygen Concentration - - Weight 82.4 kg (181 lb 11.2 oz) 05/14/2018 3:26 PM AUDIOVISUAL PRODUCTION SPECIALIST Height - - Body Mass Index - [...] TRACKING EVENT Routine 03/12/2023 9: 22 AM AUDIOVISUAL PRODUCTION SPECIALIST PERIPHERAL BLD MORPHOLOGY Routine 03/12/2023 9:22 AM AUDIOVISUAL PRODUCTION SPECIALIST RETICULOCYTES Routine 03/12/2023 9:22 AM AUDIOVISUAL PRODUCTION SPECIALIST from Last 3 Months Results * LAB TRACKING EVENT (03/12/2023 9:22 AM AUDIOVISUAL PRODUCTION SPECIALIST) Other (Other) Client Collect / Unknown 03/12/2023 9:22 AM AUDIOVISUAL PRODUCTION SPECIALIST 03/12/2023 3:31 PM AUDIOVISUAL PRODUCTION SPECIALIST Soila Beasley PA-C LAB BILL ONLY [facility] LABORATORY [address] [place] [address], * PERIPHERAL BLD MORPHOLOGY (03/12/2023 9:22 AM AUDIOVISUAL PRODUCTION SPECIALIST) Case Report Special Hematology Report ? Case: [id number] ? Authorizing Provider: ??Soila Beasley PA-C ?Collected: ? 03/12/2023921 ? Ordering Location: ? [facility] CENTRAL [facility] ?Received: ?03/12/2023 1801 ? Pathologist: ? Sage Rogers, ? MD ? Specimen: ?Peripheral Blood ? 03/13/2023 11:09 AM [facility] LABORATORY-C ENTRAL LABORATORY Final Diagnosis PERIPHERAL BLOOD: Within normal limits 03/13/2023 11:09 AM [facility] Comment At the time of this evaluation, the hemoglobin value is normal. The CBC/DIFF and peripheral smear morphology are within normal limits. There are no atypical features noted. Clinical correlation is recommended. This case was also reviewed by Liliya Simon MT, ([facility]). 03/13/2023 11:09 AM [facility] LABORATORY-C ENTRAL LABORATORY Clinical Information The patient is a 57-year-old female. Pertinent clinical information: Anemia and small IgG kappa monoclonal protein. Peripheral blood morphology 2020 ([id number]) was within normal limits. 03/13/2023 11:09 AM [facility] LABORATORY-C ENTRAL LABORATORY CBC and Differential HEMATOLOGY PARAMETERS Tested at: ??[facility] ? RESULTS ??EXPECTED VALUES WBC: ? 4.7 ?4.5-25z5278/cu mm ? RBC: ? 3.92 ? 4.00-5.20 mil/cumm ??DECREASED HGB: ? 12.1 ? 12-16 gm/dl ? HCT: ? 36.8 ? 33-51% ? MCV: ? 93.9 ? 80-100 fl ? NORMOCYTIC MCH: ? 30.9 ? 26-34 pg ? MCHC: ?32.9 ? 32-36 gm/dl ? NORMOCHROMIC PLT: ? 316 ?140-900u7077/u L ? Retic: ?? 1.0 ?0.5-1.5% ? Differential ?Absolute (%) ?Expected (%) ?(x10*9/L) ? (x10*9/L) Neutrophils: ?2.13 (45.5) ? 1.7-7.0 (42-72%) ? Lymphocytes: ?2.11 (45.1) ? 0.9-2.9 (20-44%) ?? Monocytes: ?0.3 (6.4) ?<0.9 (0-11%) ? Eosinophils: ?0.12 (2.6) ? <0.5 (0-2%) ? Basophils: ?0.02 (.4) ?<0.3 (<3.0%) ? 03/13/2023 11:09 AM [facility] LABORATORY-[facility] Microscopic Description The final diagnosis is based on microscopic examination of an appropriately stained blood smear. 03/13/2023 11:09 AM [facility] LABORATORY-C ENTRUT LABORATORY Additional Information Interpreted at [facility], Central Laboratory - [address], [place] [address] 03/13/2023 11:09 AM [facility] LAB[facility] Blood (Peripheral Blood) 03/12/2023 9:22 AM AUDIOVISUAL PRODUCTION SPECIALIST 03/12/2023 6:01 PM AUDIOVISUAL PRODUCTION SPECIALIST Soila Beasley PA-C HEMATOLOGY [facility] [address] [place] [address], [place] * RETICULOCYTES (03/12/2023 9:22 AM AUDIOVISUAL PRODUCTION SPECIALIST) RETIC% 1.0 0.5 - 1.5 % 03/12/2023 3:46 PM AUDIOVISUAL PRODUCTION SPECIALIST [facility] LABORATORY RETIC (ABSOLUTE) 0.04 0.03 - 0.08 mil/cu mm 03/12/2023 3:46 PM AUDIOVISUAL PRODUCTION SPECIALIST [facility] LAB[facility]ORY Blood BLOOD SPECIMEN / Unknown Client Collect / Unknown 03/12/2023 9:22 AM AUDIOVISUAL PRODUCTION SPECIALIST 03/12/2023 3:36 PM AUDIOVISUAL PRODUCTION SPECIALIST Soila Beasley PA-C HEMATOLOGY [facility] [address] [place] [address], [place] from Last 3 Months Care Teams Facs Teacher Relationship Specialty Start Date End Date Soila Beasley PA-C [address] [place] [address] PCP - General Emergency Medicine 04/15/21
--- OUTSIDE RECORDS SUMMARY | 2023-03-30 14:55 | XMS_ITS | Encounter Summary ---
Author Name Unknown Organization [facility] Address [address] [place] [place] [address] Care Team Providers Care Shear Setter Name Role Phone Damaso Laguerre MD Primary Care Provider + [phone] Soila Beasley PA-C Unavailable [phone] Dodie Rosas DO Unavailable [phone] Soila Beasley PA-C Primary Care Provider Dodie Rosas DO Unavailable [phone] Encounter Details Date Type Department Care Team (Late st Contact Info) Description 03/21/2022 Medical Correspondence [facility] Info [facility] [address] [place] [address] Scan, Non-Provider Social History Tobacco Use Types Packs/Day Years [...] Description 06/10/2023 1:45 PM CDT Office Visit [facility] [place] [address] [place] [address] Dodie Rosas DO [address] [place] [id number] documented as of this encounter Visit Diagnoses Not on filedocumented in this encounter Care Teams Shear Setter Relationship Specialty Start Date End Date Damaso Laguerre MD [facility] [address] [place] [phone] PCP - General Family Practice 03/11/11 03/21/23 Soila Beasley PA-C [facility] [address] [place] [address] PCP - General Physician Direct Customer Service Representative 03/22/23 Soila Beasley PA-C [address] [address] Physician Direct Customer Service Representative Physician Direct Customer Service Representative 07/09/21 Dodie Rosas DO [address] [place] [id number] Assigned Heart and Vascular Provider 08/24/21 02/20/23 Dodie Rosas DO [address] [place] [id number] Physician Cardiovascular Disease 03/23/23 documented as of this encounter
--- OUTSIDE RECORDS SUMMARY | 2023-03-30 14:55 | XMS_ITS | Encounter Summary ---
Author Name Unknown Organization [facility] Address [facility] [place] [address] Care Team Providers Care Sheet Metal Supervisor Name Role Phone Soila Beasley PA-C Primary Care Provider Reason for Visit * Reason Comments Leg Pain Encounter Details Date Type Department Care Team (Late st Contact Info) Description 03/22/2023 5:09 PM SHEARER SCREEN MEASURER AND TRIMMER - 03/22/2023 7:29 PM SHEARER SCREEN MEASURER AND TRIMMER Emergency [facility] Emergency Dept [address] [place] [address] Ajay Saeed MD [address] [facility] [place], [address] [address] Acute superficial venous thrombosis of lower extremity, [...] Comments Blood Pressure 121/65 03/22/2023 7:29 PM SHEARER SCREEN MEASURER AND TRIMMER Pulse 80 03/22/2023 7:29 PM SHEARER SCREEN MEASURER AND TRIMMER Temperature 36.7 ??C (98 ??F) 03/22/2023 5:08 PM SHEARER SCREEN MEASURER AND TRIMMER Respiratory Rate 20 03/22/2023 7:29 PM SHEARER SCREEN MEASURER AND TRIMMER Oxygen Saturation 98% 03/22/2023 7:29 PM SHEARER SCREEN MEASURER AND TRIMMER Inhaled Oxygen Concentration - - Weight - - Height - - Body Mass Index - - documented in this encounter Discharge Instructions * Attachments The following attachments cannot be sent through Care Everywhere. * Thrombophlebitis: Superficial (Albanian) documented in this encounter Medications at Time of Discharge Medication Sig Dispensed Refills Start Date End Date ferrous sulfate (FEROSUL) 325 (65 Fe) MG tablet Take 325 mg by mouth daily as needed 0 rivaroxaban ANTICOAGULANT (XARELTO) 10 MG TABS tablet Take 1 tablet (10 mg) by mouth daily (with dinner) for 45 days 45 tablet 0 03/22/2023 05/06/2023 documented as of this encounter ED Notes * Anais Reyna RN - 03/22/2023 5:06 PM CST Pt arrives with complain of pain in right upper thigh originating in groun area and going down intoher neck. Has a vericose vein in this area. No redness, warmth, or swelling. A&Ox4. No recent travel. No history of DVT or clots, is a smoker. RER SCREEN MEASURER AND TRIMMER * Ajay Saeed MD - 03/22/2023 4:59 [...] Ajay Saeed MD King, Colin, MD 03/22/232150 RER SCREEN MEASURER AND TRIMMER documented in this encounter Plan of Treatment Upcoming Encounters Date Type Department Care Team (Late st Contact Info) Description 06/10/2023 1:45 PM CDT Office Visit [facility] [address] [facility] [address] [place] [phone] Dodie Rosas DO [address] [place] [address] documented as of this encounter Procedures Procedure Name Priority Date/Time Associated Diagnosis Comments US LOWER EXTREMITY VENOUS DUPLEX RIGHT STAT 03/22/2023 6:40 PM SHEARER SCREEN MEASURER AND TRIMMER CBC WITH PLATELETS AND DIFFERENTIAL STAT 03/22/2023 6:39 PM SHEARER SCREEN MEASURER AND TRIMMER CBC WITH PLATELETS & DIFFERENTIAL STAT 03/22/2023 6:39 PM SHEARER SCREEN MEASURER AND TRIMMER INR STAT 03/22/2023 6:11 PM SHEARER SCREEN MEASURER AND TRIMMER PARTIAL THROMBOPLASTIN TIME STAT 03/22/2023 6:11 PM SHEARER SCREEN MEASURER AND TRIMMER MAGNESIUM STAT 03/22/2023 6:11 PM SHEARER SCREEN MEASURER AND TRIMMER BASIC METABOLIC PANEL STAT 03/22/2023 6:11 PM SHEARER SCREEN MEASURER AND TRIMMER documented in this encounter Results * US Lower Extremity Venous Duplex Right (03/22/2023 6:40 PM SHEARER SCREEN MEASURER AND TRIMMER) Anatomical Region Laterality Modality Lower Extremity Ultrasound 03/22/2023 6:40 PM SHEARER SCREEN MEASURER AND TRIMMER Impressions 03/22/2023 6:52 PM SHEARER SCREEN MEASURER AND TRIMMER IMPRESSION: 1. ??No deep venous thrombosis in the right lower extremity. 2. ??Superficial thrombophlebitis within a varicosity in the medial right thigh. This extends for a length of 5 cm Narrative 03/22/2023 6:52 PM SHEARER SCREEN MEASURER AND TRIMMER EXAM: US LOWER EXTREMITY VENOUS DUPLEX RIGHT LOCATION: [facility] DATE: 03/22/2023 INDICATION: R medial thigh [...] US LOWER EXTREMITY VENOUS DUPLEX RIGHT LOCATION: [facility] DATE: 03/22/2023 INDICATION: R medial thigh [...] 5 cm Ajay Saeed MD [facility] US ORDERABLES * CBC with platelets and differential (03/22/2023 6:39 PM SHEARER SCREEN MEASURER AND TRIMMER) WBC Count 6.4 4.0 - 11.0 10e3/uL 03/22/2023 6:39 PM SHEARER SCREEN MEASURER AND TRIMMER [facility] RBC Count 3.98 3.80 - 5.20 10e6/uL 03/22/2023 6:39 PM SHEARER SCREEN MEASURER AND TRIMMER [facility] Hemoglobin 12.2 11.7 - 15.7 g/dL 03/22/2023 6:39 PM SHEARER SCREEN MEASURER AND TRIMMER [facility] Hematocrit 37.3 35.0 - 47.0 % 03/22/2023 6:39 PM SHEARER SCREEN MEASURER AND TRIMMER [facility] MCV 94 78 - 100 fL 03/22/2023 6:39 PM SHEARER SCREEN MEASURER AND TRIMMER [facility] MCH 30.7 26.5 - 33.0 pg 03/22/2023 6:39 PM SHEARER SCREEN MEASURER AND TRIMMER [facility] MCHC 32.7 31.5 - 36.5 g/dL 03/22/2023 6:39 PM SHEARER SCREEN MEASURER AND TRIMMER [facility] RDW 12.9 10.0 - 15.0 % 03/22/2023 6:39 PM SHEARER SCREEN MEASURER AND TRIMMER [facility] Platelet Count 311 150 - 450 10e3/uL 03/22/2023 6:39 PM SHEARER SCREEN MEASURER AND TRIMMER [facility] % Neutrophils 59 % 03/22/2023 6:39 PM SHEARER SCREEN MEASURER AND TRIMMER [facility] % Lymphocytes 33 % 03/22/2023 6:39 PM SHEARER SCREEN MEASURER AND TRIMMER [facility] % Monocytes 6 % 03/22/2023 6:39 PM SHEARER SCREEN MEASURER AND TRIMMER [facility] % Eosinophils 1 % 03/22/2023 6:39 PM SHEARER SCREEN MEASURER AND TRIMMER [facility] % Basophils 1 % 03/22/2023 6:39 PM SHEARER SCREEN MEASURER AND TRIMMER [facility] % Immature Granulocytes 0 % 03/22/2023 6:39 PM SHEARER SCREEN MEASURER AND TRIMMER [facility] NRBCs per 100 WBC 0 <1 /100 024 6:39 PM SHEARER SCREEN MEASURER AND TRIMMER [facility] Absolute Neutrophils 3.8 1.6 - 8.3 10e3/uL 03/22/2023 6:39 PM SHEARER SCREEN MEASURER AND TRIMMER [facility] Absolute Lymphocytes 2.1 0.8 - 5.3 10e3/uL 03/22/2023 6:39 PM SHEARER SCREEN MEASURER AND TRIMMER [facility] Absolute Monocytes 0.4 0.0 - 1.3 10e3/uL 03/22/2023 6:39 PM SHEARER SCREEN MEASURER AND TRIMMER [facility] Absolute Eosinophils 0.1 0.0 - 0.7 10e3/uL 03/22/2023 6:39 PM SHEARER SCREEN MEASURER AND TRIMMER [facility] Absolute Basophils 0.0 0.0 - 0.2 10e3/uL 03/22/2023 6:39 PM SHEARER SCREEN MEASURER AND TRIMMER [facility] Absolute Immature Granulocytes 0.0 <=0.4 10e3/uL 03/22/2023 6:39 PM SHEARER SCREEN MEASURER AND TRIMMER [facility] Absolute NRBCs 0.0 10e3/uL 03/22/2023 6:39 PM SHEARER SCREEN MEASURER AND TRIMMER [facility] Blood BLOOD SPECIMEN / Unknown Venipuncture / Unknown 03/22/2023 6:39 PM SHEARER SCREEN MEASURER AND TRIMMER 03/22/2023 6:39 PM SHEARER SCREEN MEASURER AND TRIMMER Ajay Saeed MD LAB - BLOOD ORDERABL ES [facility] [address] [facility] ([facility]st floor, no room number) [place] [address], [facility] [phone] * Magnesium (03/22/2023 6:11 PM SHEARER SCREEN MEASURER AND TRIMMER) Magnesium 2.0 1.7 - 2.3 mg/dL 03/22/2023 6:51 PM SHEARER SCREEN MEASURER AND TRIMMER [facility] Blood STRUCTURE OF LEFT UPPER LIMB / Unknown Venipuncture / Unknown 03/22/2023 6:11 PM SHEARER SCREEN MEASURER AND TRIMMER 03/22/2023 6:25 PM SHEARER SCREEN MEASURER AND TRIMMER Ajay Saeed MD LAB - BLOOD ORDERABL ES [facility] [address] Lab (1st floor, no room number) [place] [address], [facility] [phone] * Basic metabolic panel (03/22/2023 6:11 PM SHEARER SCREEN MEASURER AND TRIMMER) Sodium 138 135 - 145 mmol/L 03/22/2023 6:51 PM SHEARER SCREEN MEASURER AND TRIMMER [facility] Comment:Reference intervals for this test were updated on 12/02/2022 to more accurately reflect our healthy population. There may be differences in the flagging of prior results with similar values performed with this method. Interpretation of those prior results can be made in the context of the updated reference intervals. Potassium 4.0 3.4 - 5.3 mmol/L 03/22/2023 6:51 PM SHEARER SCREEN MEASURER AND TRIMMER LABORATORY Chloride 103 98 - 107 mmol/L 03/22/2023 6:51 PM SHEARER SCREEN MEASURER AND TRIMMER LABORATORY Carbon Dioxide (CO2) 26 22 - 29 mmol/L 03/22/2023 6:51 PM SHEARER SCREEN MEASURER AND TRIMMER LABORATORY Anion Gap 9 7 - 15 mmol/L 03/22/2023 6:51 PM SHEARER SCREEN MEASURER AND TRIMMER LABORATORY Urea Nitrogen 15.8 6.0 - 20.0 mg/dL 03/22/2023 6:51 PM SHEARER SCREEN MEASURER AND TRIMMER LABORATORY Creatinine 0.66 0.51 - 0.95 mg/dL 03/22/2023 6:51 PM SHEARER SCREEN MEASURER AND TRIMMER LABORATORY GFR Estimate >90 >60 mL/min/1. 73m2 03/22/2023 6:51 PM SHEARER SCREEN MEASURER AND TRIMMER LABORATORY Calcium 9.4 8.6 - 10.0 mg/dL 03/22/2023 6:51 PM SHEARER SCREEN MEASURER AND TRIMMER LABORATORY Glucose 87 70 - 99 mg/dL 03/22/2023 6:51 PM SHEARER SCREEN MEASURER AND TRIMMER LABORATORY Blood STRUCTURE OF LEFT UPPER LIMB / Unknown Venipuncture / Unknown 03/22/2023 6:11 PM SHEARER SCREEN MEASURER AND TRIMMER 03/22/2023 6:25 PM SHEARER SCREEN MEASURER AND TRIMMER Ajay Saeed MD LAB - BLOOD ORDERABL ES [facility] Lab [address] Lab (1st floor, no room number) [place] [address], [facility] [phone] * Partial thromboplastin time (03/22/2023 6:11 PM SHEARER SCREEN MEASURER AND TRIMMER) aPTT 27 22 - 38 Seconds 03/22/2023 6:38 PM SHEARER SCREEN MEASURER AND TRIMMER LABORATORY Blood STRUCTURE OF LEFT UPPER LIMB / Unknown Venipuncture / Unknown 03/22/2023 6:11 PM SHEARER SCREEN MEASURER AND TRIMMER 03/22/2023 6:25 PM SHEARER SCREEN MEASURER AND TRIMMER Ajay Saeed MD LAB - BLOOD ORDERABL ES [facility] Care Lab [address] Lab (1st floor, no room number) [place] [address], [facility] [phone] * INR (03/22/2023 6:11 PM SHEARER SCREEN MEASURER AND TRIMMER) INR 1.00 0.85 - 1.15 03/22/2023 6:37 PM SHEARER SCREEN MEASURER AND TRIMMER LABORATORY Blood STRUCTURE OF LEFT UPPER LIMB / Unknown Venipuncture / Unknown 03/22/2023 6:11 PM SHEARER SCREEN MEASURER AND TRIMMER 03/22/2023 6:25 PM SHEARER SCREEN MEASURER AND TRIMMER Ajay Saeed MD LAB - BLOOD ORDERABL ES LABORATORY [facility] Acute [facility] Lab [address] Lab (1st floor, no room number) [place] [address], [facility] [phone] documented in this encounter Visit Diagnoses Diagnosis Acute superficial venous thrombosis of lower extremity, right documented in this encounter Care Teams Sheet Metal Supervisor Relationship Specialty Start Date End Date Soila Beasley PA-C [facility] [address] [place] [address] PCP - General Physician Brake Machine Operator 03/22/23 documented as of this encounter
--- OUTSIDE RECORDS SUMMARY | 2023-03-30 14:55 | XMS_ITS | Referral Summary ---
Author Name Unknown Organization [place] Address [facility] [place] [address] Care Team Providers Care Toggler Name Role Phone Soila Beasley PA-C Primary Care Provider Dodie Rosas DO Unavailable [phone] Encounters Date Type Department Care Team Description 03/22/2023 Travel 03/22/2023 5:09 PM [employer]ERSON [employer] - 03/22/2023 7:29 PM [employer]ESPERSON [employer]YING [employer] Emergency [facility] Emergency Dept [address] [place] [address] Ajay Saeed MD Acute superficial venous thrombosis [...] Comments Blood Pressure 121/65 03/22/2023 7:29 PM [employer] Pulse 80 03/22/2023 7:29 PM [employer] Temperature 36.7 ??C (98 ??F) 03/22/2023 5:08 PM [employer] Respiratory Rate 20 03/22/2023 7:29 PM [employer] Oxygen Saturation 98% 03/22/2023 7:29 PM [employer] Inhaled Oxygen Concentration - - Weight 85 kg (187 lb 4.8 oz) 08/22/2021 9:06 AM CDT Height 168.9 cm (5' 6.5) 08/22/2021 9:06 AM CDT Body Mass Index 29.78 08/22/2021 9:06 AM CDT Plan of Treatment Upcoming Encounters Date Type Department Care Team (Late st Contact Info) Description 06/10/2023 1:45 PM CDT Office Visit [facility] [address] [facility] [address] [place] [address] Dodie Rosas DO [address] [place] [address] Procedures Procedure Name Priority Date/Time Associated Diagnosis Comments US LOWER EXTREMITY VENOUS DUPLEX RIGHT STAT 03/22/2023 6:40 PM [employer] CBC WITH PLATELETS & DIFFERENTIAL STAT 03/22/2023 6:39 PM [employer] CBC WITH PLATELETS AND DIFFERENTIAL STAT 03/22/2023 6:39 PM [employer] MAGNESIUM STAT 03/22/2023 6:11 PM [employer] BASIC METABOLIC PANEL STAT 03/22/2023 6:11 PM [employer] PARTIAL THROMBOPLASTIN TIME STAT 03/22/2023 6:11 PM [employer] INR STAT 03/22/2023 6:11 PM [employer] from Last 3 Months Results * US Lower Extremity Venous Duplex Right (03/22/2023 6:40 PM SAL[employer]) Anatomical Region Laterality Modality Lower Extremity Ultrasound 03/22/2023 6:40 PM [employer] Impressions 03/22/2023 6:52 PM [employer] IMPRESSION: 1. ??No deep venous thrombosis in the right lower extremity. 2. ??Superficial thrombophlebitis within a varicosity in the medial right thigh. This extends for a length of 5 cm Narrative 03/22/2023 6:52 PM [employer] EXAM: US LOWER EXTREMITY VENOUS DUPLEX RIGHT LOCATION: [facility] DATE: 03/22/2023 INDICATION: R medial thigh [...] US LOWER EXTREMITY VENOUS DUPLEX RIGHT LOCATION: [facility] DATE: 03/22/2023 INDICATION: R medial thigh [...] length of 5 cm Ajay Saeed MD [facility] US ORDERABLES * CBC with platelets and differential (03/22/2023 6:39 PM SALESP[employer]) WBC Count 6.4 4.0 - 11.0 10e3/uL 03/22/2023 6:39 PM [employer] [employer] [employer] RBC Count 3.98 3.80 - 5.20 10e6/uL 03/22/2023 6:39 PM [employer] [employer] [employer] Hemoglobin 12.2 11.7 - 15.7 g/dL 03/22/2023 6:39 PM [employer] [employer] [employer] Hematocrit 37.3 35.0 - 47.0 % 03/22/2023 6:39 PM [employer] [employer] [employer] MCV 94 78 - 100 fL 03/22/2023 6:39 PM [employer] [employer] [facility] MCH 30.7 26.5 - 33.0 pg 03/22/2023 6:39 PM [employer] [employer] [facility] MCHC 32.7 31.5 - 36.5 g/dL 03/22/2023 6:39 PM [employer] [employer] [facility] RDW 12.9 10.0 - 15.0 % 03/22/2023 6:39 PM [employer] [employer] [employer] Platelet Count 311 150 - 450 10e3/uL 03/22/2023 6:39 PM [employer] [employer] [employer] % Neutrophils 59 % 03/22/2023 6:39 PM [facility] [employer] [employer] % Lymphocytes 33 % 03/22/2023 6:39 PM [employer] [employer] [employer] % Monocytes 6 % 03/22/2023 6:39 PM [employer] [employer] [employer] % Eosinophils 1 % 03/22/2023 6:39 PM [employer] [employer] [employer] % Basophils 1 % 03/22/2023 6:39 PM [employer] [employer] [employer] % Immature Granulocytes 0 % 03/22/2023 6:39 PM [employer] [employer] [employer] NRBCs per 100 WBC 0 <1 /100 024 6:39 PM [employer] [employer] [employer] [facility] Absolute Neutrophils 3.8 1.6 - 8.3 10e3/uL 03/22/2023 6:39 PM [employer] [employer] [facility] Absolute Lymphocytes 2.1 0.8 - 5.3 10e3/uL 03/22/2023 6:39 PM [employer] [employer] Absolute Monocytes 0.4 0.0 - 1.3 10e3/uL 03/22/2023 6:39 PM [employer] [employer] [facility] Absolute Eosinophils 0.1 0.0 - 0.7 10e3/uL 03/22/2023 6:39 PM [employer] [employer] [facility] Absolute Basophils 0.0 0.0 - 0.2 10e3/uL 03/22/2023 6:39 PM [employer] [employer] [facility] Absolute Immature Granulocytes 0.0 <=0.4 10e3/uL 03/22/2023 6:39 PM [employer] [employer] [facility] Absolute NRBCs 0.0 10e3/uL 03/22/2023 6:39 PM [employer] [employer] [facility] Blood BLOOD SPECIMEN / Unknown Venipuncture / Unknown 03/22/2023 6:39 PM [employer] 03/22/2023 6:39 PM [employer] Ajay Saeed MD LAB - BLOOD ORDERABL ES Performing Organization Address [facility]/ZIP Co de Phone Number [facility] [address] Lab (1st floor, no room number) [place] [address], [facility] [phone] * INR (03/22/2023 6:11 PM [employer]) INR 1.00 0.85 - 1.15 03/22/2023 6:37 PM [employer] [employer] [facility] Blood STRUCTURE OF LEFT UPPER LIMB / Unknown Venipuncture / Unknown 03/22/2023 6:11 PM [employer] 03/22/2023 6:25 PM [employer] Ajay Saeed MD LAB - BLOOD ORDERABL ES Performing Organization Address [facility]/ZIP Co de Phone Number [facility] [address] Lab (1st floor, no room number) [place] [address], [facility] [phone] * Partial thromboplastin time (03/22/2023 6:11 PM [employer]) aPTT 27 22 - 38 Seconds 03/22/2023 6:38 PM [employer] [employer] [facility] Blood STRUCTURE OF LEFT UPPER LIMB / Unknown Venipuncture / Unknown 03/22/2023 6:11 PM [employer] 03/22/2023 6:25 PM [employer] Ajay Saeed MD LAB - BLOOD ORDERABL ES Performing Organization Address [facility]/ZIP Co de Phone Number [facility] [address] Lab (1st floor, no room number) [place] [address], [facility] [phone] * Magnesium (03/22/2023 6:11 PM [employer]) Magnesium 2.0 1.7 - 2.3 mg/dL 03/22/2023 6:51 PM [employer] [employer] [facility] Blood STRUCTURE OF LEFT UPPER LIMB / Unknown Venipuncture / Unknown 03/22/2023 6:11 PM [employer] 03/22/2023 6:25 PM [employer] Ajay Saeed MD LAB - BLOOD ORDERABL ES LABORATORY [facility] Acute Care Lab [address] Lab (1st floor, no room number) [place] [address], [facility] [phone] * Basic metabolic panel (03/22/2023 6:11 PM [employer]) Sodium 138 135 - 145 mmol/L 03/22/2023 6:51 PM [facility] Comment:Reference intervals for this test were updated on 12/02/2022 to more accurately reflect our healthy population. There may be differences in the flagging of prior results with similar values performed with this method. Interpretation of those prior results can be made in the context of the updated reference intervals. Potassium 4.0 3.4 - 5.3 mmol/L 03/22/2023 6:51 PM [facility] Chloride 103 98 - 107 mmol/L 03/22/2023 6:51 PM [facility] Carbon Dioxide (CO2) 26 22 - 29 mmol/L 03/22/2023 6:51 PM [facility] Anion Gap 9 7 - 15 mmol/L 03/22/2023 6:51 PM [facility] Urea Nitrogen 15.8 6.0 - 20.0 mg/dL 03/22/2023 6:51 PM [facility] Creatinine 0.66 0.51 - 0.95 mg/dL 03/22/2023 6:51 PM [facility] GFR Estimate >90 >60 mL/min/1. 73m2 03/22/2023 6:51 PM [facility] Calcium 9.4 8.6 - 10.0 mg/dL 03/22/2023 6:51 PM [facility] Glucose 87 70 - 99 mg/dL 03/22/2023 6:51 PM [facility] Blood STRUCTURE OF LEFT UPPER LIMB / Unknown Venipuncture / Unknown 03/22/2023 6:11 PM [employer] 03/22/2023 6:25 PM [employer] Ajay Saeed MD LAB - BLOOD ORDERABL ES [facility] [address] [facility] Lab (1st floor, no room number) [place] [address], [facility] [phone] from Last 3 Months Care Teams Toggler Relationship Specialty Start Date End Date Soila Beasley PA-C [facility] [address] [place] [address] PCP - General Physician Assembler Fitter 03/22/23 Dodie Rosas DO [address] [place] [address] Physician Cardiovascular Disease 03/23/23
== END 2023-03-30 14:52 | disposition home or self-care (01) ==
LOC: LKVREF 14:52
PROVIDERS: PCP Physician Assistant Medical; Visit Provider Physician Assistant Medical
DX: R53.82 Chronic fatigue, unspecified (principal); R74.02 Elevation of levels of lactic acid dehydrogenase [LDH]; R74.8 Abnormal levels of other serum enzymes
CPT/HCPCS: 85300; 85303; 85306

== ENCOUNTER 2023-07-30 13:44 | Outpatient (CLI) | payer BC, SELFPAY ==
--- OUTSIDE RECORDS SUMMARY | 2023-07-30 13:48 | XMS_ITS | Encounter Summary ---
Author Organization [place] Address [address] [place] [address] Care Team Providers Care Billet Bed Operator Name Role Phone Soila Beasley PA-C Primary Care Provider Dodie Rosas DO Unavailable [phone] Dodie Rosas DO Unavailable [phone] Reason for Visit * Reason Onset Date Comments Results 07/06/2023 Zio Encounter Details Date Type Department Care Team (Late st Contact Info) Description 07/06/2023 Telephone [facility] Heart [facility] [address] [place] [address] Dodie Rosas DO [address] [facility] [address] [place], [place] [address] Results (Zio) Social History Tobacco Use Types Packs/Day Years Used Date Smoking Tobacco: Every Day Cigarettes Smokeless Tobacco: Never Comments:6 cigarettes daily Alcohol Use Standard Drinks/Week Comments Yes 0 (1 standard drink = 0.6 oz pur e alcohol) 2 oz monthly Adolescent Education Answer Date Record ed Getting School Help Needed Not on file 12/07 Sex and Gender Information Value Date Recorded Sex Assigned at Not on file Gender Identity Not on file Sexual Orientation Not on file documented as of this encounter Miscellaneous Notes * Telephone Encounter - Carmen Johnson RN - 07/09/2023 10:25 AM CDT Images from the original note were not included. Dodie Rosas DO Lidke, Jen M, RN Caller: Unspecified (3 days ago, 11:42 AM) No further follow-up is needed. Result note sent to patient. Carmen Johnson RN on 07/09/2023 at 10:25 AM * Telephone Encounter - Carmen Johnson RN - 07/07/2023 3:59 PM CDT Images from the original note were not included. Dodie Rosas DO Lidke, Jen M, RN Caller: Unspecified (Yesterday, 11:42 AM) No further follow-up is needed. * Telephone Encounter - Carmen Johnson RN - 07/06/2023 11:43 AM CDT Please see Zio results and advise on any new recommendations, per last OV note: 2. Palpitations-recommend another Zio patch monitor to evaluate for arrhythmia Narrative & Impression Agree with findings Symptoms reported were mostly related to rare PACs or short bursts of PSVT (<10 beats) Carmen Johnson RN on 07/06/2023 at 11:43 AM documented in this encounter Plan of Treatment Not on file documented as of this encounter Visit Diagnoses Not on filedocumented in this encounter Care Teams Billet Bed Operator Relationship Specialty Start Date End Date Soila Beasley PA-C [facility] [address] [place] [address] PCP - General Physician Stretcher And Drier 03/22/23 Dodie Rosas DO [address] [place] [address] Physician Cardiovascular Disease 03/23/23 Dodie Rosas DO [address] [place] [id number] Assigned Heart and Vascular Provider 06/30/23 documented as of this encounter
--- OUTSIDE RECORDS SUMMARY | 2023-07-30 13:48 | XMS_ITS | Encounter Summary ---
Author Organization [facility] Address [address], [place] [address] Care Team Providers Care Basketball Player Name Role Phone Richard [place] APRN, SAT TUTOR Primary Care Provi sravani Reason for Referral * Procedure/Equipment (Routine) - Incomplete Specialty Diagnoses / Procedures Referred By Contac t Referred To Contact Diagnoses Varicose veins of both lower extremities with complications Procedures VL US MANDA Lower Extremity Physio Study Single Level Tammi Abraham MD [address] [place] [address] Referral ID Status Reason Start Date Expiration Date V isits Requested Visits Authorized [id number] Incomplete 05/07/2023 08/05/2024 1 1 H CLASSER * Procedure/Equipment (Routine) - Incomplete Specialty Diagnoses / Procedures Referred By Contac t Referred To Contact Diagnoses Varicose veins of both lower extremities with complications Procedures Tubigrip (A6457) Tammi Abraham MD [address] [place] [address] Referral ID Status Reason Start Date Expiration Date V isits Requested Visits Authorized [id number] Incomplete 05/07/2023 08/05/2024 1 1 H CLASSER * Procedure/Equipment (Routine) - Incomplete Specialty Diagnoses / Procedures Referred By Contac t Referred To Contact Diagnoses Varicose veins of both lower extremities with complications Procedures Tubigrip (A6457) Tammi Abraham MD [address] [place] [address] Referral ID Status Reason Start Date Expiration Date V isits Requested Visits Authorized [id number] Incomplete 05/07/2023 08/05/2024 1 1 H CLASSER Reason for Visit * Reason Comments Follow-up VV Encounter Details Date Type Department Care Team (Late st Contact Info) Description 05/07/2023 3:00 PM CLOTH CLASSER [facility] [address] [facility] [place], [place] [id number] Tammi Abraham MD [address] [place] [address] Varicose veins of both lower extremities with complications (Primary Dx) Social History Tobacco Use Types Packs/Day Years Used Date Smoking Tobacco: Every Day Cigarettes Smokeless Tobacco: Never Alcohol Use Standard Drinks/Week Comments Not Currently 0 (1 standard drink = 0.6 oz pur e alcohol) Sex and Gender Information Value Date Recorded Sex Assigned at Not on file Gender Identity Not on file Sexual Orientation Not on file documented as of this encounter Last Filed Vital Signs Vital Sign Reading Time Taken Comments Blood Pressure 125/54 05/07/2023 3:20 PM CLOTH CLASSER Pulse 71 05/07/2023 3:20 PM CLOTH CLASSER Temperature - - Respiratory Rate - - Oxygen Saturation - - Inhaled Oxygen Concentration - - Weight - - Height - - Body Mass Index - - documented in this encounter Progress Notes * Hazel Bardales, WILIAN - 05/07/2023 3:00 PM CST Tubigrip RX sent for Knee and thigh high, will trial for 1 month and follow up in BV on 05/28/23, MANDA same day. H CLASSER * Tammi Abraham MD - 05/07/2023 3:00 PM CST VASCULAR SURGERY FOLLOW-UP NOTE Kandis Caceres a 57 y.o. female presents today for an follow-up regarding varicose veins. She underwent an ultrasound study which we will discuss during today's visit. For further details regarding history and physical exam, please see note from 04/24/23. 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 She has a history of SVT that resolved with conservative management and xarelto. She has not found compression stockings that work wellfor her, but is willing to try out other types. She is currently smoking but has cut down to 5 per day. EXAM: BP 125/54 (BP Location: Right Arm, BP Cuff Size: Large) Pulse 71 LMP (LMP Unknown) GEN: Appears healthy. Alert; in no acute distress. Pleasant. EXT: peripheral pulses normal, no pedal edema, no clubbing or cyanosis, cords non-palpable, lymphadenopathy absent, muscle exam 5/5 in upper and lower extremities, neuro grossly intact VARICOSE VEINS: Right Extremity: dilated tortuous and below knee on right lower extremity. Left Extremity: dilated tortuous and below knee on left lower extremity. SKIN: Left extremity: No hyperpigmentation, induration, or ulceration noted. Right extremity: No hyperpigmentation, induration, or ulceration noted. Imaging Studies Reviewed: The report and images for the ultrasound done today were reviewed by me and and the patient. US Lower Extremity Bilat Venous Reflux Indication: Varicose veins A duplex ultrasound study using Doppler was performed, to evaluate the bilateral lower extremity veins for valvular incompetence with the patient in a reverse Trendelenburg position. RIGHT LOWER EXTREMITY The great saphenous vein diameters: saphenofemoral junction: 5.7mm, immediately after the saphenofemoral junction: 9.9mm, proximal thigh: 6.7mm, knee: 6.5mm. The great saphenous vein is incompetent at the saphenofemoral junction and from the mid thigh to the mid calf. The time of incompetence is greater than 500 milliseconds in length. There is an incompetent anterior accessory great saphenous vein (9.0mm) draining into the saphenofemoral junction. The time of incompetence is greater than 500 milliseconds in length. There is a competent Giacomini vein (2.0mm) draining into the small saphenous vein at the knee. The small saphenous vein at the proximal calf measures 2.7mm. The small saphenous vein is incompetent at the proximal calf. The time of incompetence is greater than 500 milliseconds in length. There is no evidence of incompetent gas utility worker veins at any level. There is evidence of multiple incompetent varicose veins with the largest measuring 7.1mm. The timeof incompetence is greater than 500 milliseconds. There is evidence of non-occlusive superficial thrombophlebitis within varicose veins at the mid thigh. The great and small saphenous veins are fully compressible with no evidence of thrombus. The gastrocnemius veins were segmentally visualized and are fully compressible where seen. The deep venous system is competent and free of thrombus. Incidentally noted, there is a calcification within the tissue at the anterior distal calf. LEFT LOWER EXTREMITY The great saphenous vein diameters: saphenofemoral junction: 6.5mm, immediately after the saphenofemoral junction: 5.6mm, proximal thigh: 4.6mm, knee: 4.6mm. The great saphenous vein is incompetent from the knee to the proximal calf. The time of incompetence is greater than 500 milliseconds in length. There is an incompetent anterior accessory great saphenous vein (7.2mm) draining into the saphenofemoral junction. The time of incompetence is greater than 500 milliseconds in length. There is a competent Giacomini vein (2.8mm) draining into the small saphenous vein at the knee. The small saphenous vein at the proximal calf measures 3.0mm. The small saphenous vein is competentin its entirety. There is no evidence of incompetent gas utility worker veins at any level. There is evidence of multiple incompetent varicose veins with the largest measuring 4.4mm. The timeof incompetence is greater than 500 milliseconds. The great and small saphenous veins are fully compressible with no evidence of thrombus. The gastrocnemius veins were segmentally visualized and are fully compressible where seen. The deep venous system is competent and free of thrombus. IMPRESSION Right great saphenous vein incompetence. Right anterior accessory great saphenous vein incompetence. Right small saphenous vein incompetence at the proximal calf. Incidentally noted, there is a calcification within the tissue at the right anterior distal calf. Non-occlusive superficial thrombophlebitis within varicose veins at the right mid thigh. Left great saphenous vein incompetence from the knee to the proximal calf. Left anterior accessory great saphenous incompetence. There are multiple incompetent varicosities within the right and left lower extremities. No evidence of right or left lower extremity deep vein thrombosis. ASSESSMENT: ICD-10-CM 1. Varicose veins of both lower extremities with complications I83.893 Tubigrip (A6457) Tubigrip (A6457) US MANDA Lower Extremity Physio Study Single Level CEAP classification for chronic venous disorders: Right Left Clinical 3 3 Etiology p p Anatomy s s Pathophys R, o r Venous Clinical Severity Score: PAIN: Daily, moderate activity limitation; occasional pain medication (MODERATE = 2) VARICOSE VEINS: Multiple; great saphenous veins, confined to calf and thigh (MODERATE = 2) VENOUS EDEMA: Afternoon swelling, above ankle (MODERATE = 2) COMPRESSION THERAPY: Full compliance, stockings plus elevation (SEVERE = 3) PLAN: Discussed and educated the patient on etiology, natural history and treatment options for varicose veins. We discussed continuation of conservative measures such as leg elevation and compression to help alleviate the symptoms above. The patient does have significant enough findings and symptoms of superficial venous reflux on ultrasound to warrant surgical intervention. Given all of the above, the patient was instructed to return to the clinic as needed, no further treatment is required at this time. She was counseled on the importance of smoking cessation which would decrease risk of blood clots among other things. We discussed that PAD and CAD will sometimes progress to the point of needing open revascularization which would sometimes require use of the great saphenous vein as conduit. Options at this time include doing local avulsions to get rid of varicosities that may develop SVT's in the future. We discussed that SVT is not treated with surgery. She will work on wearing compression, will consider smoking cessation, and will see us again in [place] follow[place]. Time spent with patient 30 minutes, greater than 50% of which was spent in consultation regarding diagnosis, treatment options, alternative therapies, complications, and expected outcomes. Tammi Abraham MD 1:00 PM 05/11/2023 H CLASSER documented in this encounter Plan of Treatment Not on file documented as of this encounter Results * VL US MANDA Lower Extremity Physio Study Single Level (05/28/2023 3:20 PM CDT) Anatomical Region Laterality Modality Vascular, Leg Ultrasound 05/28/2023 3:09 PM CDT Impressions 05/28/2023 3:40 PM CDT Indication: Peripheral vascular disease A Doppler examination with ankle/brachial and digit/brachial pressure indices was performed on the bilateral lower extremities. RIGHT LOWER EXTREMITY There are triphasic Doppler waveforms present in the posterior tibial and dorsalis pedis arteries. The right ankle/brachial pressure index is normal at 1.08. The right digit/brachial pressure index is normal at 0.82. LEFT LOWER EXTREMITY There are triphasic Doppler waveforms present in the posterior tibial and dorsalis pedis arteries. The left ankle/brachial pressure index is normal at 1.09. The left digit/brachial pressure index is normal at 0.62. IMPRESSION Normal ankle/brachial and digit/brachial pressure indices within the lower extremities, bilaterally. Narrative Procedure Note Aleksandr Espinoza MD - 05/28/2023 IMPRESSION Indication: Peripheral vascular disease A Doppler examination with ankle/brachial and digit/brachial pressureindices was performed on the bilateral lower extremities. RIGHT LOWER EXTREMITY There are triphasic Doppler waveforms present in the posterior tibial anddorsalis pedis arteries. The right ankle/brachial pressure index is normal at 1.08. The right digit/brachial pressure index is normal at 0.82. LEFT LOWER EXTREMITY There are triphasic Doppler waveforms present in the posterior tibial anddorsalis pedis arteries. The left ankle/brachial pressure index is normal at 1.09. The left digit/brachial pressure index is normal at 0.62. IMPRESSION Normal ankle/brachial and digit/brachial pressure indices within the lowerextremities, bilaterally. Tammi Abraham MD RAD VASCULAR US documented in this encounter Visit Diagnoses Diagnosis Varicose veins of both lower extremities with complications- Primary Varicose veins of both lower extremities with complications documented in this encounter Care Teams Basketball Player Relationship Specialty Start Date End Date Cheri Ramos, METAL CLEANER, SAT TUTOR [id number] [place] [address] [place] [id number] PCP - General Nurse Practitioner 04/13/23 documented as of this encounter
--- OUTSIDE RECORDS SUMMARY | 2023-07-30 13:48 | XMS_ITS | Encounter Summary ---
Author Organization [facility] Address [address], [place] [address] Care Team Providers Care Pt Skilled Name Role Phone Cheri Ramos APRN, HUNTER SKIN DIVER Primary Care Provi sravani Reason for Referral * Procedure/Equipment (Routine) - Incomplete Specialty Diagnoses / Procedures Referred By Contac t Referred To Contact Diagnoses Varicose veins of both lower extremities with complications Procedures VL US Lower Extremity Bilat Venous Reflux Ban Corbin APRN, HUNTER SKIN DIVER [address] [place] [address] Referral ID Status Reason Start Date Expiration Date V isits Requested Visits Authorized [id number] Incomplete 04/24/2023 07/23/2024 1 1 SPLICER Reason for Visit * Reason Comments CONSULT Varicose veins Encounter Details Date Type Department Care Team (Late st Contact Info) Description 04/24/2023 9:30 AM PLY SPLICER Initial Consult [facility] [address] [place], [place] [address] Ban Corbin APRN, HUNTER SKIN DIVER [address] [place], [place] [id number] Varicose veins of both lower extremities with [...] Sign Reading Time Taken Comments Blood Pressure 119/64 04/24/2023 9:33 AM PLY SPLICER Pulse 79 04/24/2023 9:33 AM PLY SPLICER Temperature - - Respiratory Rate - - Oxygen Saturation - - Inhaled Oxygen Concentration - - Weight - - Height - - Body Mass Index - - documented in this encounter Progress Notes * Mariann Kaur RN - 04/24/2023 9:30 AM CST Assisted pt. in scheduling venous reflux u/s and clinic f/u w/ vascular surgeon. SPLICER * Ban Corbin, MANAGER SECURITY, HUNTER SKIN DIVER - 04/24/2023 9:30 AM CST VASCULAR SURGERY CONSULT NOTE Kandis Caceres a 57 y.o. female presents today for an evaluation regarding varicose veins. She resides in [place]. Medical history significant for MGUS and episode of SVT of a varicose vein in theright thigh. She presents today for evaluation of varicosities located on bilateral legs for 2+ years but with recent episode of right varicose vein SVT. Was placed on Xarelto for this. Associated symptoms include some aching and throbbing over the veins. Pain is aggravated by upright posture and is associated with minimal lower extremity swelling. No complaints of cosmetic concerns, ulcer or skin changes. Denies any other leg symptoms of claudication, rest pain, open sores, slow wound healing or previous DVT. The patient's medical record has been reviewed. Medications have been reviewed and updated. Pertinent Vascular history: no diabetes, hypertension, hyperlipidemia, CAD, PVD, non- smoker Pertinent Surgical history: none Review of Systems: Pertinent items noted above EXAM: BP 119/64 (BP Location: Right Arm, BP Cuff Size: Regular) Pulse 79 LMP (LMP Unknown) GEN: Appears stated age. Alert; in no acute distress. Pleasant. CHEST: not using accessory muscles to breath EXT: intact peripheral pulses, feet normal, good pulses, normal color, temperature and sensation, trace ankle edema, no redness or tenderness in the calves or thighs, varicose veins noted, no ulcers,gangrene or atrophic changes Varicose Veins: dilated tortuous, below knee, above knee, and spider veins noted on bilateral lowerextremity. ASSESSMENT: ICD-10-CM 1. Varicose veins of both lower extremities with complications I83.893 [facility] Lower Extremity Bilat Venous Reflux PLAN: Discussed and educated the patient on etiology, natural history and treatment options for varicose veins. Patient was instructed to return to the clinic for a duplex ultrasound for venous insufficiency andto follow-up with one of our vascular surgeons to discuss treatment options of varicose veins and venous insufficiency. Ban Corbin HUNTER SKIN DIVER, Vascular Surgery 12:45 PM 04/28/2023 SPLICER documented in this encounter Plan of Treatment Not on file documented as of this encounter Results * [facility] Lower Extremity Bilat Venous Reflux (05/07/2023 3:18 PM PLY SPLICER) Anatomical Region Laterality Modality Vascular, Lower Extremity, Leg U ltrasound 05/07/2023 2:35 PM PLY SPLICER Impressions 05/07/2023 7:53 PM PLY SPLICER Indication: Varicose veins A duplex ultrasound study using Doppler was performed, to evaluate the bilateral lower extremity veins for valvular incompetence with the patient in a reverse Trendelenburg position. RIGHT LOWER EXTREMITY The great saphenous vein diameters: saphenofemoral junction: 5.7mm, immediately after the saphenofemoral junction: 9.9mm, proximal thigh: 6.7mm, knee: 6.5mm. The great saphenous vein is incompetent at the saphenofemoral junction and from ??the mid thigh to the mid calf. The [...] length. There is no evidence of incompetent continuous conveyor screen drier veins at any level. There is evidence of multiple incompetent varicose veins with the largest measuring 7.1mm. The time of incompetence is greater than 500 milliseconds. There [...] measures 3.0mm. The small saphenous vein is competent in its entirety. There is no evidence of incompetent continuous conveyor screen drier veins at any level. There is evidence of multiple incompetent varicose veins with the largest measuring 4.4mm. The time of incompetence is greater than 500 milliseconds. The [...] or left lower extremity deep vein thrombosis. Narrative Procedure Note Rehan Olivarez MD - 05/07/2023 IMPRESSION Indication: Varicose veins A duplex ultrasound study using Doppler was performed, to evaluate thebilateral lower extremity veins for valvular incompetence with the patientin a reverse Trendelenburg position. RIGHT LOWER EXTREMITY The great saphenous vein diameters: saphenofemoral junction: 5.7mm,immediately after the saphenofemoral junction: 9.9mm, proximal thigh:6.7mm, knee: 6.5mm. The great saphenous vein is incompetent at thesaphenofemoral junction and from the mid thigh to the mid calf. The timeof incompetence is greater than 500 milliseconds in length. There is an incompetent anterior accessory great saphenous vein (9.0mm)draining into the saphenofemoral junction. The time of incompetence isgreater than 500 milliseconds in length. There is a competent Giacomini vein (2.0mm) draining into the smallsaphenous vein at the knee. The small saphenous vein at the proximal calf measures 2.7mm. The smallsaphenous vein is incompetent at the proximal calf. The time ofincompetence is greater than 500 milliseconds in length. There is no evidence of incompetent continuous conveyor screen drier veins at any level. There is evidence of multiple incompetent varicose veins with the largestmeasuring 7.1mm. The time of incompetence is greater than 500milliseconds. There is evidence of non-occlusive superficial thrombophlebitis withinvaricose veins at the mid thigh. The great and small saphenous veins are fully compressible with noevidence of thrombus. The gastrocnemius veins were segmentally visualized and are fullycompressible where seen. The deep venous system is competent and free of thrombus. Incidentally noted, there is a calcification within the tissue at theanterior distal calf. LEFT LOWER EXTREMITY The great saphenous vein diameters: saphenofemoral junction: 6.5mm,immediately after the saphenofemoral junction: 5.6mm, proximal thigh:4.6mm, knee: 4.6mm. The great saphenous vein is incompetent from the kneeto the proximal calf. The time of incompetence is greater than 500milliseconds in length. There is an incompetent anterior accessory great saphenous vein (7.2mm)draining into the saphenofemoral junction. The time of incompetence isgreater than 500 milliseconds in length. There is a competent Giacomini vein (2.8mm) draining into the smallsaphenous vein at the knee. The small saphenous vein at the proximal calf measures 3.0mm. The smallsaphenous vein is competent in its entirety. There is no evidence of incompetent continuous conveyor screen drier veins at any level. There is evidence of multiple incompetent varicose veins with the largestmeasuring 4.4mm. The time of incompetence is greater than 500milliseconds. The great and small saphenous veins are fully compressible with noevidence of thrombus. The gastrocnemius veins were segmentally visualized and are fullycompressible where seen. The deep venous system is competent and free of thrombus. IMPRESSION Right great saphenous vein incompetence. Right anterior accessory great saphenous vein incompetence. Right small saphenous vein incompetence at the proximal calf. Incidentally noted, there is a calcification within the tissue at theright anterior distal calf. Non-occlusive superficial thrombophlebitis within varicose veins at theright mid thigh. Left great saphenous vein incompetence from the knee to the proximalcalf. Left anterior accessory great saphenous incompetence. There are multiple incompetent varicosities within the right and leftlower extremities. No evidence of right or left lower extremity deep vein thrombosis. Ban Corbin APRN, RHE[facility] RAD VASCULAR US documented in this encounter Visit Diagnoses Diagnosis Varicose veins of both lower extremities with complications- Primary Varicose veins of both lower extremities with complications documented in this encounter Care Teams Pt Skilled Relationship Specialty Start Date End Date Cheri Ramos APRN, HUNTER SKIN DIVER [address] [place] [address] PCP - General Nurse Practitioner 04/13/23 documented as of this encounter
--- OUTSIDE RECORDS SUMMARY | 2023-07-30 13:48 | XMS_ITS | Encounter Summary ---
Author Organization [facility] Address [address], [place] [address] Care Team Providers Care Supervisor Microbiology Technologists Name Role Phone Richard [place] APRN, DIGITAL DESIGNER Primary Care Provi sravani Reason for Referral * Procedure/Equipment (Routine) - Incomplete Specialty Diagnoses / Procedures Referred By Contac t Referred To Contact Diagnoses Varicose veins of both lower extremities with complications Procedures Compression stocking knee 20-30 mmHg (A6530) Tammi Abraham MD [address] [place] [address] Referral ID Status Reason Start Date Expiration Date V isits Requested Visits Authorized [id number] Incomplete 05/29/2023 08/27/2024 1 1 * Procedure/Equipment (Routine) - Incomplete Specialty Diagnoses / Procedures Referred By Contac t Referred To Contact Diagnoses Varicose veins of both lower extremities with complications Procedures Compression stocking thigh length 20-30 mmHg (A6533) Tammi Abraham MD [address] [place] [address] Referral ID Status Reason Start Date Expiration Date V isits Requested Visits Authorized [id number] Incomplete 05/29/2023 08/27/2024 1 1 * Procedure/Equipment (Routine) - Incomplete Specialty Diagnoses / Procedures Referred By Contac t Referred To Contact Diagnoses Varicose veins of both lower extremities with complications Procedures Tubigrip (A6457) Tammi Abraham MD [address] [place] [address] Referral ID Status Reason Start Date Expiration Date V isits Requested Visits Authorized [id number] Incomplete 05/28/2023 08/26/2024 1 1 Reason for Visit * Reason Comments Follow-up PAD Encounter Details Date Type Department Care Team (Late st Contact Info) Description 05/28/2023 3:45 PM CDT Office Visit Nelida S[facility] [place] [address] Vascular Surgery [address] [place] [address] Tammi Abraham MD [address] [place], [place] [address] Varicose veins of both lower extremities with [...] as of this encounter Progress Notes * Hazel Bardales RN - 05/28/2023 3:45 PM CDT Will trial double layer, knee high tubigrip and call in a month if she would like to follow up. Reminder placed to reach out to patient to coordinate. 20-30 thigh high for jobst stockings also sent. * Tammi Abraham MD - 05/28/2023 3:45 PM CDT VASCULAR SURGERY Follow-Up Visit: Chief complaint: Follow-up (PAD) HPI: Kandis Caceres is a 58 y.o. female who presents to the clinic today for follow-up of bilateral lower extremity swelling. She has been wearing compression, and it seems to be helping with the swelling. She reports that the areas of SVT have been less painful recently as well. She is here to discuss options moving forward, and had an MANDA to confirm that she does not have severe arterial disease related to smoking. ROS: The remainder of the complete, 14-point, review of systems is otherwise negative. No past medical history on file. No past surgical history on file. ALLERGIES: Ciprofloxacin Social History Tobacco Use Smoking status: Every Day Current packs/day: 0.50 Types: Cigarettes Smokeless tobacco: Never Substance Use Topics Alcohol use: Not Currently No family history on file. Objective: Vitals: There were no vitals taken for this visit. Estimated body mass index is 31.98 kg/m?? as calculated from the following: Height as of 04/14/23: 5' 6.14 (168 cm). Weight as of 04/14/23: 199 lb (07821 g). General: Appears healthy. Alert; in no acute distress. Pleasant. Imaging Studies Reviewed: The report and images for the ultrasound done today were reviewed by me and and the patient. [facility] MANDA Lower Extremity Physio Study Single Level Indication: Peripheral vascular disease A Doppler examination [...] pressure indices within the lower extremities, bilaterally. Labs: No results found for: HGB, WBC, INR, CREATININE Assessment/Plan: I reassured her that the MANDA was normal, so if she wished we could consider ablation of the saphenous on the right with avulsions. We discussed some of the risks of surgery including thrombosis, neuralgia, bleeding, and infection from avulsion sites. She is unsure if she would like to proceed with surgery at this time, and so she will give us a call back if she wishes to pursue this in the future. Will continue with compression and leg elevation in the mean time. Kandis was seen today for follow-up. Diagnoses and all orders for this visit: Varicose veins of both lower extremities with complications - Tubigrip (A6457) - Compression stocking thigh length 20-30 mmHg (A6533) - Compression stocking knee 20-30 mmHg (A6530) Time spent with patient 30 minutes, greater than 50% of which was spent in consultation regarding diagnosis, treatment options, alternative therapies, complications, and expected outcomes. Tammi Abraham MD, [facility] Vascular Surgery 05/28/2023 Pager # [phone] documented in this encounter Plan of Treatment Not on file documented as of this encounter Visit Diagnoses Diagnosis Varicose veins of both lower extremities with complications- Primary documented in this encounter Care Teams Supervisor Microbiology Technologists Relationship Specialty Start Date End Date Cheri Ramos, CATEGORY DIRECTOR, DIGITAL DESIGNER [address] [place] [address] PCP - General Nurse Practitioner 04/13/23 documented as of this encounter
--- OUTSIDE RECORDS SUMMARY | 2023-07-30 13:48 | XMS_ITS | Clinical Summary ---
Author Organization [facility] Address [address] [place] [address] Care Team Providers Care Spooling Operator Name Role Phone Cheri Ramos APRN, FORM MAKER Primary Care Provi sravani Source Comments You are receiving this document as you are listed as the primary care provider,follow-up provider, or the patient has been referred to you for consultation.This is in compliance with the Medicare and[facility] EHR Incentive Program,which states Providers who transition their patient to another setting of careor provider of care or refers their patient to another provider of care shouldprovide summary care record for each transition of care or referral. [facility] Allergies Active Allergy Reactions Criticality Noted Date Comments Ciprofloxacin Hives High 08/22/2021 Medications Medication Sig Dispensed Refills Start Date End Date Status D3-50 1.25 MG (89814 UT) capsule Take 1 Capsule (50,000 Units) by mouth once every week. 02/26/2023 Active Active Problems Problem Noted Date Diagnosed Date Vitamin D deficiency 04/14/2023 MGUS (monoclonal gammopathy of unknown significa nce) 04/14/2023 Thrombophlebitis of superfic ial veins of right lower extremity 04/14/2023 Overview: History of varicose veins. Superficial thrombophlebitis diagnosed 03/22. On 45 day of Xarelto. Encounters Date Type Department Care Team Description 05/28/2023 3:45 PM CDT Office Visit Nelida Saba [place] [address] Vascular Surgery [address] [place] [phone] Tammi Abraham MD Varicose veins of both lower extremities with complications (Primary Dx) 05/28/2023 3:00 PM CDT Ancillary Procedure Nelida Saba [place] [address] Vascular Lab [address] [place] [phone] Tammi Abraham MD Varicose veins of both lower extremities with complications 05/07/2023 3:00 PM RAILROADER Office Visit [facility] [address] [place] [address] Tammi Abraham MD Varicose veins of both lower extremities with complications (Primary Dx) 05/07/2023 2:30 PM RAILROADER - 05/07/2023 11:59 PM RAILROADER Hospital Encounter [facility] [address] [place] [address] Ban Corbin, ETTA, FORM MAKER Varicose veins of both lower extremities with complications Discharge Disposition: Home 05/01/2023 Telephone [facility] [address] [place] [address] Cheri Ramos, ETTA, FORM MAKER Test Results from Last 3 Months Social History Tobacco Use Types Packs/Day Years Used Date Smoking Tobacco: Every Day Cigarettes Smokeless Tobacco: Never Tobacco Cessation:Ready to Q uit: Not Asked; Counseling Given: Not Answered Alcohol Use Standard Drinks/Week Comments Not Currently 0 (1 standard drink = 0.6 oz pur e alcohol) Sex and Gender Information Value Date Recorded Sex Assigned at Not on file Gender Identity Not on file Sexual Orientation Not on file Last Filed Vital Signs Vital Sign Reading Time Taken Comments Blood Pressure 125/54 05/07/2023 3:20 PM RAILROADER Pulse 71 05/07/2023 3:20 PM RAILROADER Temperature - - Respiratory Rate - - Oxygen Saturation - - Inhaled Oxygen Concentration - - Weight 90.3 kg (199 lb) 04/14/2023 7:17 AM RAILROADER Height 168 cm (5' 6.14) 04/14/2023 7:17 AM RAILROADER Body Mass Index 31.98 04/14/2023 7:17 AM RAILROADER Plan of Treatment Health Maintenance Due Date Last Done Comments Cervical Cancer Screening Due 1966 Colon Cancer Screening Plan Due 1966 Diabetes Screening- (based o n age and BMI) 1966 Hep C Screening (Preventive Services) 1966 Pneumococcal (1 - PCV) 1972 HIV Screening (Preventive Services) 1982 Adult Preventive Visit 1984 HepB (1) 1985 Cholesterol 05/13/2011 Zoster/Shingles (1 of 2) 2016 DTaP/Tdap/Td (2 - Tdap) 09/17/2016 09/17/2006 Mammogram 04/25/2022 04/25/2021, 04/25/2021 COVID-19 Vaccine (1 - 2022-2 4 season) 2022 Influenza (Season Ended) 2023 011, 03/25/2010, 01/24/2008 HepA Aged Out No longer eligi ble based on patient's age to complete this topic Hib Aged Out No longer eligi ble based on patient's age to complete this topic IPV (Polio) Aged Out No longer eligi ble based on patient's age to complete this topic MCV4 Aged Out No longer eligi ble based on patient's age to complete this topic Procedures Procedure Name Priority Date/Time Associated Diagnosis Comments VL US MANDA LOWER EXTREMITY PHYSIO STUDY SINGLE LEVEL Routine 05/28/2023 3:20 PM CDT Varicose veins of both lower extremities with complications US LOWER EXTREMITY BILAT VENOUS REFLUX Routine 05/07/2023 3:18 PM RAILROADER Varicose veins of both lower extremities with complications MM MAMMOGRAM SCREENING BILAT W 3D TUAN W CAD Routine 04/25/2021 10:21 AM RAILROADER from Last 3 Months or Most Recently Relevant to Health Maintenance Results * US MADNA Lower Extremity Physio Study Single Level (05/28/2023 [...] bilaterally. Tammi Abraham MD RAD VASCULAR US * US Lower Extremity Bilat Venous Reflux (05/07/2023 3:18 PM RAILROADER) Anatomical Region Laterality Modality Vascular, Lower Extremity, Leg U ltrasound 05/07/2023 2:35 PM RAILROADER Impressions 05/07/2023 7:53 PM RAILROADER Indication: Varicose veins A duplex ultrasound study [...] length. There is no evidence of incompetent state game protector veins at any level. There is evidence [...] entirety. There is no evidence of incompetent state game protector veins at any level. There is evidence [...] length. There is no evidence of incompetent state game protector veins at any level. There is evidence [...] entirety. There is no evidence of incompetent state game protector veins at any level. There is evidence [...] extremity deep vein thrombosis. Ban Corbin APRN, FORM MAKER RAD VASCULAR US from Last 3 Months or Most Recently Relevant to Health Maintenance Care Teams Spooling Operator Relationship Specialty Start Date End Date Cheri Ramos, ENDOSCOPY TECHNICIAN, FORM MAKER [address] [place] [address] PCP - General Nurse Practitioner 04/13/23
--- OUTSIDE RECORDS SUMMARY | 2023-07-30 13:48 | XMS_ITS | Encounter Summary ---
Author Organization [facility] Address [address] [facility] [place] [address] Care Team Providers Care Coding Compliance Manager Name Role Phone Soila Beasley PA-C Primary Care Provider Dodie Rosas DO Unavailable + [phone] Reason for Referral * Consultation (Routine: Next available opening) - Pending Review Specialty Diagnoses / Procedures Referred By Contac t Referred To Contact Cardiovascular Disease Diagnoses Acute superficial venous thrombosis of lower extremity, right Dodie Rosas DO [address] [place] [address] Referral ID Status Reason Start Date Expiration Date V isits Requested Visits Authorized [id number] Pending Review 06/10/2023 06/09/2024 1 1 Question Answer Follow-up with: Other Legal Executive Assistant Reason for follow-up: Vascular Cardiology Scheduling Instructions: [facility] will call you to coordinate your care as prescribed by your provider. If you have concerns about scheduling, please call [phone]. Comments [facility] will call you to coordinate your care as prescribed by your provider. If you have concerns about scheduling, please call [phone]. * CV Testing (Routine) - Pending Review Specialty Diagnoses / Procedures Referred By Contac t Referred To Contact Diagnoses Palpitations Procedures ZIO PATCH 8-14 DAYS (additional cost to patient) Dodie Rosas DO [address] [place] [address] Referral ID Status Reason Start Date Expiration Date V isits Requested Visits Authorized [id number] Pending Review 06/10/2023 06/09/2024 1 1 Reason for Visit * Reason Comments Heart Problem Follow up ED visit, varicose veins Encounter Details Date Type Department Care Team (Late st Contact Info) Description 06/10/2023 1:45 PM CDT Office Visit [facility] [address] [place] [address] Dodie Rosas DO [address] [place], [place] [id number] Palpitations (Primary Dx); Acute superficial venous thrombosis of lower extremity, right Social History Tobacco Use Types Packs/Day Years Used Date Smoking Tobacco: Every Day Cigarettes Smokeless Tobacco: Never Tobacco Cessation:Ready to Q uit: Not Asked; Counseling Given: Not Answered Comments:6 cigarettes daily Alcohol Use Standard Drinks/Week [...] Sign Reading Time Taken Comments Blood Pressure 126/70 06/10/2023 1:43 PM CDT Pulse 72 06/10/2023 1:43 PM CDT Temperature - - Respiratory Rate - - Oxygen Saturation - - Inhaled Oxygen Concentration - - Weight 92.3 kg (203 lb 8 oz) 06/10/2023 1:43 PM CDT Height 168.9 cm (5' 6.5) 06/10/2023 1:43 PM CDT Body Mass Index 32.35 06/10/2023 1:43 PM CDT documented in this encounter Progress Notes * Dodie Rosas DO - 06/10/2023 1:45 PM CDT HPI and Plan: Kandis Caceres is a 58 year old female who presents with history of varicose veins and a recent superficial venous thrombosis seen in the ED. she actually had follow-up with the vascular specialist following this visit who recommended compression socks/hose. She also had a host of other complaintsincluding mainly chronic fatigue. She states she is been diagnosed with sleep apnea but intolerant of the mask. She was also diagnosed with low vitamin D levels and has been taking supplemental vitamin D after she stopped the blood thinner for the SVT. She is tangential and with redirection I tried to inquire if she had any heart concerns today. She talked about seeing me over 2 years ago and having palpitations and that she still has palpitations.She wore a heart monitor from a cook chili at [facility] in March 2022 that I was able to pullup but for some reason she did not give consent to see the clinic notes, just the tests. She wore the heart monitor it looks like for 2 weeks in which time she had very short runs of SVT but her symptoms did not correlate with these runs of SVT. I was able to review recent blood work including basic metabolic panel, CBC which were normal. I donot see any recent thyroid testing the last was in February 2022 and was normal at that time. 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 Exam is unremarkable today Summary 1. Superficial vein thrombosis-it was recommended that she wear compression hosiery. I offered her a second opinion with our vascular cook chili to see if she would be a candidate for treatment of her varicose veins. 2. Palpitations-recommend another Zio patch monitor to evaluate for arrhythmia She had multiple other complaints and discussed follow-up lab test that were recommended by other physicians, recommend to follow-up with PMD for further assessment. Please feel free to contact me with any questions given regards to her care Today's clinic visit entailed: 45 minutes spent by me on the date of the encounter doing chart review, history and exam, documentation and further activities per the note Provider Link to [facility] Help Grid Orders Placed This Encounter Procedures ZIO PATCH 8-14 DAYS APPLICATION Follow-Up with Cardiology ZIO PATCH 8-14 DAYS (additional cost to patient) Orders Placed This Encounter Medications Multiple Vitamin (MULTIVITAMIN ADULT PO) Sig: Take by mouth once a week Very inconsistent with taking this ergocalciferol (ERGOCALCIFEROL) 1.25 MG (09837 UT) capsule Sig: Take 50,000 Units by mouth once a week Medications Discontinued During This Encounter Medication Reason ferrous sulfate (FEROSUL) 325 (65 Fe) MG tablet Stopped by Patient (No AVS) rivaroxaban ANTICOAGULANT (XARELTO) 10 MG TABS tablet Therapy completed (No AVS) Encounter Diagnoses Name Primary? Palpitations Yes Acute superficial venous thrombosis of lower extremity, right CURRENT MEDICATIONS: Current Outpatient Medications Medication Sig Dispense Refill ergocalciferol (ERGOCALCIFEROL) 1.25 MG (91410 UT) capsule Take 50,000 Units by mouth once a week Multiple Vitamin (MULTIVITAMIN ADULT PO) Take by mouth once a week Very inconsistent with taking this ALLERGIES Allergies Allergen Reactions Ciprofloxacin Other Environmental Allergy Fragrances, some metals such as kate PAST MEDICAL HISTORY: No past medical history on file. PAST SURGICAL HISTORY: No past surgical history on file. FAMILY HISTORY: History reviewed. No pertinent family history. SOCIAL HISTORY: Social History Socioeconomic History Marital status: Single Spouse name: None Number of children: None Years of education: None Highest education level: None Tobacco Use Smoking status: Every Day Types: Cigarettes Smokeless tobacco: Never Tobacco comments: 6 cigarettes daily Substance and Sexual Activity Alcohol use: Yes Comment: 2 oz monthly Review of Systems: Skin: Eyes: ENT: Respiratory: Cardiovascular: Gastroenterology: Genitourinary: Musculoskeletal: Neurologic: Psychiatric: Heme/Lymph/Imm: Endocrine: Physical Exam: Vitals: BP 126/70 Pulse 72 Ht 1.689 m (5' 6.5) Wt 92.3 kg (203 lb 8 oz) BMI 32.35 kg/m?? Constitutional: in no acute distress overweight Skin: warm and dry to the touch Head: normocephalic Eyes: pupils equal and round Lymph: ENT: no pallor or cyanosis Neck: Respiratory: normal symmetry Cardiac: regular rhythm GI: abdomen soft Extremities and Muscular Skeletal: no edema Neurological: no gross motor deficits flat affect Psych: Alert and Oriented x 3 Recent Lab Results: LIPID RESULTS: No results found for: CHOL, HDL, LDL, TRIG, CHOLHDLRATIO LIVER ENZYME RESULTS: Lab Results Component Value Date AST 04/16/2017 ALT 04/16/2017 CBC RESULTS: Lab Results Component Value Date WBC 6.4 03/22/2023 WBC 6.9 04/16/2017 RBC 3.98 03/22/2023 RBC 3.99 04/16/2017 HGB 12.2 03/22/2023 HGB 12.7 04/16/2017 HCT 37.3 03/22/2023 HCT 38.4 04/16/2017 MCV 94 03/22/2023 MCV 96 04/16/2017 MCH 30.7 03/22/2023 MCH 31.8 04/16/2017 MCHC 32.7 03/22/2023 MCHC 33.1 04/16/2017 RDW 12.9 03/22/2023 RDW 13.2 04/16/2017 PLT 311 03/22/2023 PLT 302 04/16/2017 BMP RESULTS: Lab Results Component Value Date NA 138 03/22/2023 NA 137 04/16/2017 POTASSIUM 4.0 03/22/2023 POTASSIUM 3.8 04/16/2017 CHLORIDE 103 03/22/2023 CHLORIDE 105 04/16/2017 CO2 26 03/22/2023 CO2 26 04/16/2017 ANIONGAP 9 03/22/2023 ANIONGAP 6 04/16/2017 GLC 87 03/22/2023 GLC 109 (H) 04/16/2017 BUN 15.8 03/22/2023 BUN 18 04/16/2017 CR 0.66 03/22/2023 CR 0.59 04/16/2017 GFRESTIMATED >90 03/22/2023 GFRESTIMATED >90 04/16/2017 GFRESTBLACK >90 04/16/2017 WILLA 9.4 03/22/2023 WILLA 8.5 04/16/2017 A1C RESULTS: No results found for: A1C INR RESULTS: Lab Results Component Value Date INR 1.00 03/22/2023 CC Ajay Saeed MD [address] [facility] [place], [address] [place] [address] * Christine Knox, CHILD DEVELOPMENT CONSULTANT - 06/10/2023 1:45 PM CDT Kandis Herrera Morris arrived here on 06/10/2023 2:51 PM for 8-14 Days Zio monitor placement per ordering provider Dr. Rosas for the diagnosis Palpitations. Patient???s skin was prepped per protocol. Zio monitor was placed. Instructions were reviewed with and given to the patient. Patient verbalized understanding of wear, troubleshooting and monitor return instructions. documented in this encounter Plan of Treatment Scheduled Referrals Name Type Priority Associated Diagnoses Orde r Schedule Follow-Up with Cardiology Referral Routine: Next available opening Acute superficial venous thrombosis of lower extremity, right Expected: 07/10/2023 (Approximate), Expires: 06/09/2024 documented as of this encounter Procedures Procedure Name Priority Date/Time Associated Diagnosis Comments ZIO PATCH 8-14 DAYS INTERPRETATION Routine 07/06/2023 9:51 AM CDT Palpitations ZIO PATCH 8-14 DAYS APPLICATION Routine 06/10/2023 2:18 PM CDT Palpitations documented in this encounter Results * ZIO PATCH 8-14 DAYS (additional cost to patient) (07/06/2023 9:51 AM CDT) Anatomical Region Laterality Modality Other Narrative 07/06/2023 9:53 AM CDT Agree with findings Symptoms reported were mostly related to rare PACs or short bursts of PSVT (<10 beats) Dodie Rosas DO CV CARDIAC SERVICES ORDERABLES documented in this encounter Visit Diagnoses Diagnosis Palpitations- Primary Acute superficial venous thrombosis of lower extremity, right documented in this encounter Care Teams Coding Compliance Manager Relationship Specialty Start Date End Date Soila Beasley PA-C [facility] [address] [place] [address] PCP - General Physician Arrt Technologist 03/22/23 Dodie Rosas DO [address] [place] [address] Physician Cardiovascular Disease 03/23/23 documented as of this encounter
--- OUTSIDE RECORDS SUMMARY | 2023-07-30 13:48 | XMS_ITS | Encounter Summary ---
Author Organization [facility] Address [address], [place] [address] Care Team Providers Care Special Systems Technician Name Role Phone Cheri Ramos APRN, ROASTERMAN Primary Care Provi sravani Reason for Visit * Procedure/Equipment (Routine) - Incomplete Specialty Diagnoses / Procedures Referred By Contac t Referred To Contact Diagnoses Varicose veins of both lower extremities with complications Procedures VL US MANDA Lower Extremity Physio Study Single Level Tammi Abraham MD [address] [place] [address] Referral ID Status Reason Start Date Expiration Date V isits Requested Visits Authorized [id number] Incomplete 05/07/2023 08/05/2024 1 1 Encounter Details Date Type Department Care Team (Late st Contact Info) Description 05/28/2023 3:00 PM CDT Ancillary Procedure [facility] [address] V[facility] Lab [address] [place] [phone] Tammi Abraham MD [address] [facility] [place], [place] [phone] Varicose veins of both lower extremities with complications Social History Tobacco Use Types Packs/Day Years [...] as of this encounter Plan of Treatment Not on file documented as of this encounter Procedures Procedure Name Priority Date/Time Associated Diagnosis Comments US MANDA LOWER EXTREMITY PHYSIO STUDY SINGLE LEVEL Routine 05/28/2023 3:20 PM CDT Varicose veins of both lower extremities with complications documented in this encounter Results * US MANDA Lower Extremity Physio Study Single [...] complications documented in this encounter Care Teams Special Systems Technician Relationship Specialty Start Date End Date Cheri Ramos, DREDGE PIPEMAN, ROASTERMAN [address] [place] [address] PCP - General Nurse Practitioner 04/13/23 documented as of this encounter
--- OUTSIDE RECORDS SUMMARY | 2023-07-30 13:48 | XMS_ITS | Clinical Summary ---
Author Organization [place] Address [facility] [place] [address] Care Team Providers Care Assistant To The Dean Name Role Phone Soila Beasley PA-C Primary Care Provider Dodie Rosas DO Unavailable [phone] Dodie Rosas DO Unavailable [phone] Allergies Active Allergy Reactions Criticality Noted Date Comments Ciprofloxacin 08/22/2021 Other Environmental Allergy 06/10/19 24 Fragrances, some metals such as kate Medications Medication Sig Dispensed Refills Start Date End Date Status Multiple Vitamin (MULTIVITAMIN ADULT PO) Take by mouth once a week Very inconsistent with taking this Active ergocalciferol (ERGOCALCIFEROL) 1.25 MG (07817 UT) capsule Take 50,000 Units by mouth once a week Active Encounters Date Type Department Care Team Description 07/06/[address] [place] [address] Dodie Rosas DO Results (Zio) 06/10/2023 1:45 PM CDT Office Visit [facility] [address] [facility] [address] [place] [address] Dodie Rosas DO Palpitations (Primary Dx); Acute superficial venous thrombosis of lower extremity, right 06/10/2023 Travel from Last 3 Months Social History [...] Pulse 72 06/10/2023 1:43 PM CDT Temperature 36.7 ??C (98 ??F) 03/22/2023 5:08 PM DIRECTOR INSTRUCTIONAL MATERIAL Respiratory Rate 20 03/22/2023 7:29 PM DIRECTOR INSTRUCTIONAL MATERIAL Oxygen Saturation 98% 03/22/2023 7:29 PM DIRECTOR INSTRUCTIONAL MATERIAL Inhaled Oxygen Concentration - - Weight 92.3 kg (203 lb 8 oz) 06/10/2023 1:43 PM CDT Height 168.9 cm (5' 6.5) 06/10/2023 1:43 PM CDT Body Mass Index 32.35 06/10/2023 1:43 PM CDT Plan of Treatment Health Maintenance Due Date Last Done Comments ADVANCE CARE PLANNING 1966 ANNUAL REVIEW OF HM ORDERS 1966 CT COLONOGRAPHY 1966 FIT 1966 FLEX SIG 1966 NICOTINE/TOBACCO CESSATION COUNSELING Q 1 YR 1966 YEARLY PREVENTIVE VISIT 1966 sDNA (Cologuard) 1966 Pneumococcal Vaccine: Pediatrics (0 to 5 Years) and At-Risk Patients (6 to 64 Years) (1 of 2 - PCV) 1972 COLONOSCOPY 1976 COLORECTAL CANCER SCREENING 1976 HIV SCREENING 1981 HEPATITIS C SCREENING 1984 LIPID 2006 LUNG CANCER SCREENING 2016 ZOSTER IMMUNIZATION (1 of 2) 2016 DTAP/TDAP/TD IMMUNIZATION (3 - Td or Tdap) 09/17/2016 09/17/2006, 09/17/2006 COVID-19 Vaccine (1 - 2022- season) 2022 PHQ-2 (once per calendar year) 2023 MAMMO SCREENING 04/25/2023 04/25/2021, 04/09, 04/25/2021 PAP 10/30/2023 10/29/2020, 10/29/2020 INFLUENZA VACCINE (Season Ended) 2023 02/03/2011, 02/03/2011, 03/25/2010, Additional history exists GLUCOSE 03/22/2026 03/22/2023, 02/0 10/2017, 08/21/2015 HEPATITIS B IMMUNIZATION Completed 996, 02/23/1996, 11/17/1995, [...] APPLICATION Routine 06/10/2023 2:18 PM CDT Palpitations BASIC METABOLIC PANEL STAT 03/22/2023 6:11 PM DIRECTOR INSTRUCTIONAL MATERIAL MA SCREENING BILATERAL W/ TUAN Routine 04/25/2021 10:21 AM DIRECTOR INSTRUCTIONAL MATERIAL from Last 3 Months or Most Recently Relevant to Health Maintenance Results * ZIO PATCH 8-14 DAYS (additional cost to patient) (07/06/2023 9:51 AM CDT) Anatomical Region Laterality Modality Other Narrative 07/06/2023 9:53 AM CDT Agree with findings Symptoms reported were mostly related to rare PACs or short bursts of PSVT (<10 beats) Dodie Courtney Rosas DO [facility] ORDERABLES * Basic metabolic panel (03/22/2023 6:11 PM DIRECTOR INSTRUCTIONAL MATERIAL) Sodium 138 135 - 145 mmol/L 03/22/2023 6:51 PM DIRECTOR INSTRUCTIONAL MATERIAL [facility] Comment:Reference intervals for this test were updated on 12/02/2022 to more accurately reflect our healthy population. There may be differences in the flagging of prior results with similar values performed with this method. Interpretation of those prior results can be made in the context of the updated reference intervals. Potassium 4.0 3.4 - 5.3 mmol/L 03/22/2023 6:51 PM DIRECTOR INSTRUCTIONAL MATERIAL [facility]AT[facility] Chloride 103 98 - 107 mmol/L 03/22/2023 6:51 PM DIRECTOR INSTRUCTIONAL MATERIAL LAB[facility]AT[facility] Carbon Dioxide (CO2) 26 22 - 29 mmol/L 03/22/2023 6:51 PM DIRECTOR INSTRUCTIONAL MATERIAL LAB[facility]AT[facility] Anion Gap 9 7 - 15 mmol/L 03/22/2023 6:51 PM DIRECTOR INSTRUCTIONAL MATERIAL LAB[facility]AT[facility] Urea Nitrogen 15.8 6.0 - 20.0 mg/dL 03/22/2023 6:51 PM DIRECTOR INSTRUCTIONAL MATERIAL LABORATORY Creatinine 0.66 0.51 - 0.95 mg/dL 03/22/2023 6:51 PM [facility] GFR Estimate >90 >60 mL/min/1. 73m2 03/22/2023 6:51 PM DIRECTOR INSTRUCTIONAL MATERIAL LABORATORY Calcium 9.4 8.6 - 10.0 mg/dL 03/22/2023 6:51 PM [facility] Glucose 87 70 - 99 mg/dL 03/22/2023 6:51 PM [facility] Blood STRUCTURE OF LEFT UPPER LIMB / Unknown Venipuncture / Unknown 03/22/2023 6:11 PM DIRECTOR INSTRUCTIONAL MATERIAL 03/22/2023 6:25 PM DIRECTOR INSTRUCTIONAL MATERIAL Ajay Saeed MD LAB - BLOOD ORDERABL [facility] LAB[facility]AT[facility] [address] Lab (1st floor, no room number) [place] [address], [facility] [phone] from Last 3 Months or Most Recently Relevant to Health Maintenance Care Teams Assistant To The Dean Relationship Specialty Start Date End Date Soila Beasley PA-C [facility] [address] [place] [address] PCP - General Physician Nursing Program Chair 03/22/23 Dodie Rosas DO [address] [place] [address] Physician Cardiovascular Disease 03/23/23 Dodie Rosas DO [address] [place] [address] Assigned Heart and Vascular Provider 06/30/23
--- OUTSIDE RECORDS SUMMARY | 2023-07-30 13:48 | XMS_ITS | Clinical Summary ---
Author Organization [facility] Address [place], [place] [address] Care Team Providers Care Solar Power Installer Name Role Phone Clinic, No Pcp Or Primary Care Provider Unavaila ble Allergies Active Allergy Reactions Criticality Noted Date [...] Encounters Date Type Department Care Team Description 07/29/2023 6:10 PM CDT Ancillary Procedure [facility] [id number] [place] [phone] Arrived 07/29/2023 5:10 PM CDT Office Visit [address] [phone] Roman Shook, Fatigue (Vit D deficiency, Lump by my rib, and brain fog. ); Musculoskeletal Problem (Rib cage pain) 07/29/2023 Travel from Last 3 Months Immunizations Name Administration Dates Next Due DTaP 09/17/2006 Hepatitis B (Adult) 02/23/1996,11/17/1995,1995 Influenza Virus, Unspecified 01/24/2008 Influenza, IIV3 (Age >=3 years) 02/03/2011,03/25,01/24/2008 Tdap 09/17/2006 Family History Medical History Relation Name Comments Cancer-breast No Family History Social History Tobacco Use Types Packs/Day Years Used Date Smoking Tobacco: Every Day Cigarettes Cigars Smokeless Tobacco: Never Tobacco Cessation:Ready to Q uit: Not Asked; Counseling Given: Not Answered Alcohol Use Standard Drinks/Week Comments Not Asked 0 (1 standard drink = 0.6 oz pur e alcohol) Social Connections Answer Date Recorded Frequency of Communication with Friends and Fami ly 0 07/29/2023 Financial Resource Strain Answer Date R ecorded Difficulty of Paying Living Expenses 3 07/29/2023 Difficulty of Paying Living Expenses Not on file 07/29/2023 Food Insecurity Answer Date Recorded Worried About Running Out of Food in the Last Ye ar 1 07/29/2023 Transportation Needs Answer Date Record ed Lack of Transportation (Medical) 1 07/29/2023 Housing Stability Answer Date Recorded Unable to Pay for Housing in the Last Year 1 07/29/2023 Sex and Gender Information Value Date Recorded Sex Assigned at Not on file Gender Identity Not on file Sexual Orientation Not on file Obstetrics History Para Term AB IAB SAB Ectopic Multiple Livin g Live Births 1 Date Outcome GA Total Labor Labor/2nd/3rd Weight Sex Delivery Anes PTL Karime A1 A5 Name Cl in Term Last Filed Vital Signs Vital Sign Reading Time Taken Comments Blood Pressure 120/70 07/29/2023 5:25 PM CDT Pulse 84 07/29/2023 5:25 PM CDT Temperature 36.8 ??C (98.2 ??F) 05/14/2018 3:26 PM CS T Respiratory Rate 16 07/25/2017 4:44 PM CDT Oxygen Saturation 97% 07/29/2023 5:25 PM CDT Inhaled Oxygen Concentration - - Weight 90.7 kg (200 lb) 07/29/2023 5:25 PM CDT Height 167.6 cm (5' 6) 07/29/2023 5:25 PM CDT Body Mass Index 32.28 07/29/2023 5:25 PM CDT Plan of Treatment Health Maintenance Due Date Last Done Comments Pneumococcal series for age 6-64 (1 of 2 - PCV) 1972 Depression screening for age 12+ 1978 HIV for age 15-65 1981 Hepatitis C screening for ag e 18-79 1984 Colonoscopy through age 75 05/13/2011 Lipids for age 45-75 05/13/2011 Zoster (shingles) series for age 50+ (1 of 2) 2016 Tetanus booster 09/17/2016 09/17/2006 Mammogram for age 45-75 04/25/2022 04/25/19, 09/10/2012, 08/23/2012 COVID-19 vaccine series (2022-24 season) 2022 Pap test for age 21-65 10/30/2023 10/29/2020, 2020 Influenza for age 50-64 11/08/2023 02/04/20 11, 03/25/2010, 01/24/2008, Additional history exists BMI (ht and wt on same day) for age 18+ 07/28/2024 07/29/2023 Tdap Completed 09/17/2006 Procedures Procedure Name Priority Date/Time Associated Diagnosis Comments XR CHEST 2 VIEWS PA AND LATERAL Routine 07/29/2023 6:10 PM CDT Chest pain in adult XR MAMMO TUAN BILAT SCREEN Routine 04/25/2021 10:21 AM COSMETIC SURGEON Visit for screening mammogram SECURITY CONSULTANT THIN PREP PAP SCREEN IMAGED Routine 10/29/2020 12:00 PM CDT from Last 3 Months or Most Recently Relevant to Health Maintenance Results * XR CHEST 2 VIEWS PA AND LATERAL (07/29/2023 6:10 PM CDT) Anatomical Region Laterality Modality CHEST, THORAX, Lung, HEART Compu ortiz Radiography 07/29/2023 6:10 PM CDT Impressions 07/29/2023 10:10 PM CDT Both lungs are clear. No cardiac size and pulmonary vascularity. Mild degenerative changes thoracic spine. No significant interval change. Narrative 07/29/2023 10:10 PM CDT For Patients: As a result of the Century Cures Act, medical imaging exams and procedure reports are released immediately into your electronic medical record. You may view this report before your referring provider. If you have questions, please contact your health care provider. EXAM: XR CHEST 2 VIEWS PA AND LATERAL LOCATION: [facility] DATE: 07/29/2023 INDICATION: Chest Pain In Adult. COMPARISON: CT chest without IV contrast low-dose lung cancer screening exam 02/25/2021. Procedure Note Suma Gutierrez MBBS - 07/29/2023 For Patients: As a result of the Cures Act, medical imagingexams and procedure reports are released immediately into your electronicmedical record. You may view this report before your referring provider.If you have questions, please contact your health care provider. EXAM: XR CHEST 2 VIEWS PA AND LATERAL LOCATION: [facility] DATE: 07/29/2023 INDICATION: Chest Pain In Adult. COMPARISON: CT chest without IV contrast low-dose lung cancer screeningexam 02/25/2021. IMPRESSION: Both lungs are clear. No cardiac size and pulmonary vascularity. Milddegenerative changes thoracic spine. No significant interval change. Roman LAGUNAS IMAGI NG * XR MAMMO TUAN BILAT SCREEN (04/25/2021 10:21 AM COSMETIC SURGEON) Anatomical Region Laterality Modality BREASTS, Breast Left, Breast Right Bilateral Mammography Impressions 04/25/2021 11:14 AM COSMETIC SURGEON ??There is no radiographic evidence for malignancy. ??Recommend annual mammograms. MAMMOGRAM ASSESSMENT: ??ACR 1 Negative PATIENTS: You will also receive a letter with your examination results in an easy to read format. ??If you have questions about your results, please contact your referring provider. Narrative 04/25/2021 11:14 AM COSMETIC SURGEON For Patients: As a result of the Cures Act, medical imaging exams and procedure reports are released immediately into your electronic medical record. You may view this report before your referring provider. If you have questions, please contact your health care provider. XR MAMMO TUAN BILAT SCREEN [[id number]] CLINICAL HISTORY: ??This is an asymptomatic 55 y.o. patient. INDICATION FOR EXAM: Mammogram Screening. TECHNIQUE: CC & MLO views were obtained. ??This study was evaluated with the assistance of Computer-Aided Detection. Breast Tomosynthesis was used in interpretation. COMPARISON FILM: Yes 08/23/12 Brainjuicer ?? FINDINGS: ??The breasts are heterogeneously dense, which may obscure small masses. There are no dominant masses, suspicious micro calcifications or areas of architectural distortion. Soila Beasley PA-C MAMMO * SECURITY CONSULTANT THIN PREP PAP SCREEN IMAGED (10/29/2020 12:00 PM CDT) Case Report Gynecologic Cytology Report ? Case: [id number] ? Authorizing Provider: ??Soila Beasley PA-C ?Collected: ? 10/29/2020 1200 ? Ordering Location: ? [facility] ?Received: ?10/31/2020 0917 ? First Screen: ?Yamilex Pace ? Specimen: ?SECURITY CONSULTANT ThinPrep Vial Screening, Cervical/Vaginal ? 11/13/2020 1:39 PM CDT [facility] INTERPRETATION/ RESULT NEGATIVE FOR INTRAEPITHELIAL LESION OR MALIGNANCY (NIL) (none) 11/13/2020 1:39 PM CDT [facility] IMEN ADEQUACY Satisfactory for evaluation Endocervical component present 11/13/2020 1:39 PM CDT [facility] HPV REQUEST HPV and PAP 11/13/2020 1:39 PM CDT [facility] Date of LMP 11/13/2020 1:39 PM CDT [facility] Comment:Unknown Last Pap Date 11/13/2020 1:39 PM CDT [facility] Comment:Unknown Additional Information 11/13/2020 1:39 PM CDT [facility] Comment: Interpreted at [facility] - [address], [place] [address] Automated Review Successful 11/13/2020 1:39 PM CDT [facility] Comment:Specimen processed s uccessfully by automated sock lining examiner device, CallMDPrep Imaging System, [employer] ANCILLARY TESTING SECURITY CONSULTANT HPV Ordered, Please see separate report 11/13/2020 1:39 PM CDT [facility] Note The pap test is a screening technique, not a diagnostic procedure. It is used primarily to screen for squamous cancers and precursor lesions. Published studies have shown that it is subject to both false negative and false positive results. The pap test should not be used as the sole means to diagnose or exclude pre-malignant and malignant lesions. 11/13/2020 1:39 PM CDT [facility] Other (Cervical/Vagina l) 10/29/2020 12:00 PM CDT 10/31/2020 9:17 AM CDT Soila Beasley PA-C PATHOLOGY/CYTOLOGY [facility] [address] [place] [address], [place] from Last 3 Months or Most Recently Relevant to Health Maintenance Care Teams Solar Power Installer Relationship Specialty Start Date End Date Clinic, No Pcp Or . PCP - General 07/29/23
--- OUTSIDE RECORDS SUMMARY | 2023-07-30 13:48 | XMS_ITS | Encounter Summary ---
Author Organization [place] Address [address] [facility] [place] [address] Care Team Providers Care Count Team Clerk Name Role Phone Soila Beasley PA-C Primary Care Provider Dodie Rosas DO Unavailable [phone] Encounter Details Date Type Department Care Team (Latest Contact Info) Description 06/10/2023 Travel Social History Tobacco Use Types Packs/Day [...] on filedocumented in this encounter Care Teams Count Team Clerk Relationship Specialty Start Date End Date Soila Beasley PA-C [facility] [address] [place] [address] PCP - General Physician Tag And Label Cutter 03/22/23 Dodie Rosas DO [address] [facility] [address] [place] [address] Physician Cardiovascular Disease 03/23/23 documented as of this encounter
--- OUTSIDE RECORDS SUMMARY | 2023-07-30 13:48 | XMS_ITS | Encounter Summary ---
Author Organization [facility] Address [address], [place] [address] Care Team Providers Care Customer Account Representative Name Role Phone Cheri Ramos APRN, RHEA Primary Care Provi sravani Reason for Visit * Reason Comments Test Results Encounter Details Date Type Department Care Team (Late st Contact Info) Description 05/01/2023 Telephone [facility] [address] [place] [address] Cheri Ramos APRN, FLAT KNITTER [address] [place] [address] Test Results Social History Tobacco Use Types Packs/Day Years Used Date Smoking Tobacco: Every Day Cigarettes Smokeless Tobacco: Never Alcohol Use Standard Drinks/Week Comments Not Currently 0 (1 standard drink = 0.6 oz pur e alcohol) Sex and Gender Information Value Date Recorded Sex Assigned at Not on file Gender Identity Not on file Sexual Orientation Not on file documented as of this encounter Nursing Notes * Cheri Ramos APRN, CNP - 05/06/2023 12:44 PM CST I called and reviewed labs with her and answered her questions. PRESIDENT * Elizabeth Dawson LPN - 05/04/2023 3:43 PM CST Spoke to pt, relayed provider message, pt noted that she completed a LARRY at the end of her last appointment at the visit on 04/14/23, pt noted that her main concern was that she still has not received the lab letter in the mail. Another lab letter was created and forwarded to CSS team to print and mail, pt has no further questions, closing encounter. PRESIDENT * Raina Greene APRN, CNP - 05/01/2023 4:24 PM CST Her PCP will be back next week and author will leave for her review: Per last PCP note: Her serum protein electrophoresis did not show any detectable monoclonal spike (M-spike) and her free light chains were completely normal. All of these labs will also be sent via mail to her so that she can show her [place] doctor since we did not get authorization for release from her to review her [place] chart. 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 PRESIDENT * Alexandrea Kerr LPN - 05/01/2023 4:16 PM CST Clinician Action: Input needed regarding lab results Clinician Next Step: Route to CSS (Clinical Pharmacy Analyst) pool to follow up Specific Request(s): 1. Mgus lab results. Test done on 02/27 AND 05/02. Pt states she has tested positive and negative- states it doesn't go away that she has read, does it mean she had a false positive or false negative 2. Caller would also like her results mailed to her from her most recent lab. Letter needed. PRESIDENT * Mayra Jensen - 05/01/2023 2:55 PM CST Test Results What test are you calling about? mgus Primary Cross Country Truck Driver: Cheri Ramos APRN, RHEA Who ordered the test? Cheri Ramos APRN, RHEA When and where was the test done? 02/27 AND 05/02 Additional comments (related to the above concern): Caller states she has tested positive and negative states it doesn't go away that she has read, does it mean she had a false positive or false negative Caller would also like her results mailed to her from her most recent lab. If a prescription is needed, patient would like it filled at the pharmacy listed in Medication Management. Is it okay to leave a detailed message on your voicemail? no Is there anything else I can help you with today? PRESIDENT documented in this encounter Plan of Treatment Not on file documented as of this encounter Visit Diagnoses Not on filedocumented in this encounter Care Teams Customer Account Representative Relationship Specialty Start Date End Date Cheri Ramos, BANK AND SAVINGS SECURITIES TRADER, FLAT KNITTER [address] [place] [address] PCP - General Nurse Practitioner 04/13/23 documented as of this encounter
--- OUTSIDE RECORDS SUMMARY | 2023-07-30 13:48 | XMS_ITS | Referral Summary ---
Author Organization [place] Address [facility] [place] [address] Care Team Providers Care Research Editor Name Role Phone Soila Beasley PA-C Primary Care Provider Dodie Rosas DO Unavailable [phone] Dodie Rosas DO Unavailable [phone] Encounters Date Type Department Care Team Description 07/06/[address] [place] [address] Dodie Rosas DO Results (Zio) 06/10/2023 Travel 06/10/2023 1:45 PM CDT Office Visit [facility] [address] [facility] [address] [place] [address] Dodie Rosas DO Palpitations (Primary Dx); Acute superficial venous thrombosis of lower extremity, right from Last 3 Months Allergies Active Allergy Reactions Criticality Noted Date Comments Ciprofloxacin 08/22/2021 Other Environmental Allergy 06/10/19 24 Fragrances, some metals such as kate Medications Medication Sig Dispensed Refills Start Date End Date Status Multiple Vitamin (MULTIVITAMIN ADULT PO) Take by mouth once a week Very inconsistent with taking this Active ergocalciferol (ERGOCALCIFEROL) 1.25 MG (22489 UT) capsule Take 50,000 Units by mouth once a week Active Social History Tobacco Use Types Packs/Day [...] 36.7 ??C (98 ??F) 03/22/2023 5:08 PM RN CLINICAL DOCUMENTATION SPECIALIST Respiratory Rate 20 03/22/2023 7:29 PM RN CLINICAL DOCUMENTATION SPECIALIST Oxygen Saturation 98% 03/22/2023 7:29 PM RN CLINICAL DOCUMENTATION SPECIALIST Inhaled Oxygen Concentration - - Weight 92.3 kg (203 lb 8 oz) 06/10/2023 1:43 PM CDT Height 168.9 cm (5' 6.5) 06/10/2023 1:43 PM CDT Body Mass Index 32.35 06/10/2023 1:43 PM CDT Plan of Treatment Not on file Procedures Procedure Name Priority Date/Time Associated Diagnosis Comments ZIO PATCH 8-14 DAYS INTERPRETATION Routine 07/06/2023 9:51 AM CDT Palpitations ZIO PATCH 8-14 DAYS APPLICATION Routine 06/10/2023 2:18 PM CDT Palpitations BASIC METABOLIC PANEL STAT 03/22/2023 6:11 PM RN CLINICAL DOCUMENTATION SPECIALIST MA SCREENING BILATERAL W/ TUAN Routine 04/25/2021 10:21 AM RN CLINICAL DOCUMENTATION SPECIALIST from Last 3 Months or Most Recently Relevant to Health Maintenance Results * ZIO PATCH 8-14 DAYS (additional cost to patient) (07/06/2023 9:51 AM CDT) Anatomical Region Laterality Modality Other Narrative 07/06/2023 9:53 AM CDT Agree with findings Symptoms reported were mostly related to rare PACs or short bursts of PSVT (<10 beats) Dodie Rosas DO CV CARDIAC SERVICES ORDERABLES * Basic metabolic panel (03/22/2023 6:11 PM RN CLINICAL DOCUMENTATION SPECIALIST) Sodium 138 135 - 145 mmol/L 03/22/2023 6:51 PM RN CLINICAL DOCUMENTATION SPECIALIST LABORATORY Comment:Reference intervals for this test were updated on 12/02/2022 to more accurately reflect our healthy population. There may be differences in the flagging of prior results with similar values performed with this method. Interpretation of those prior results can be made in the context of the updated reference intervals. Potassium 4.0 3.4 - 5.3 mmol/L 03/22/2023 6:51 PM RN CLINICAL DOCUMENTATION SPECIALIST LABORATORY Chloride 103 98 - 107 mmol/L 03/22/2023 6:51 PM RN CLINICAL DOCUMENTATION SPECIALIST LABORATORY Carbon Dioxide (CO2) 26 22 - 29 mmol/L 03/22/2023 6:51 PM RN CLINICAL DOCUMENTATION SPECIALIST LABORATORY Anion Gap 9 7 - 15 mmol/L 03/22/2023 6:51 PM [facility] Urea Nitrogen 15.8 6.0 - 20.0 mg/dL 03/22/2023 6:51 PM RN CLINICAL DOCUMENTATION SPECIALIST LABORATORY Creatinine 0.66 0.51 - 0.95 mg/dL 03/22/2023 6:51 PM RN CLINICAL DOCUMENTATION SPECIALIST LABORATORY GFR Estimate >90 >60 mL/min/1. 73m2 03/22/2023 6:51 PM [facility] Calcium 9.4 8.6 - 10.0 mg/dL 03/22/2023 6:51 PM [facility] Glucose 87 70 - 99 mg/dL 03/22/2023 6:51 PM [facility] Blood STRUCTURE OF LEFT UPPER LIMB / Unknown Venipuncture / Unknown 03/22/2023 6:11 PM RN CLINICAL DOCUMENTATION SPECIALIST 03/22/2023 6:25 PM RN CLINICAL DOCUMENTATION SPECIALIST Ajay Saeed MD LAB - BLOOD ORDERABL ES LABORATORY [facility] Acute Care Lab [address] Lab (1st floor, no room number) [place] [address], [facility] [phone] from Last 3 Months or Most Recently Relevant to Health Maintenance Care Teams Research Editor Relationship Specialty Start Date End Date Soila Beasley PA-C [facility] [address] [place] [address] PCP - General Physician Printing Plate Maker 03/22/23 Dodie Rosas DO [address] [place] [address] Physician Cardiovascular Disease 03/23/23 Dodie Rosas DO [address] [place] [id number] Assigned Heart and Vascular Provider 06/30/23
--- OUTSIDE RECORDS SUMMARY | 2023-07-30 13:48 | XMS_ITS | Encounter Summary ---
Author Organization [facility] Address [address], [place] [address] Care Team Providers Care Regional Environmental Manager Name Role Phone Cheri Ramos APRN, DIRECTOR LOSS PREVENTION Primary Care Provi sravani Reason for Referral * Procedure/Equipment (Routine) - Incomplete Specialty Diagnoses / Procedures Referred By Contac t Referred To Contact Diagnoses Varicose veins of both lower extremities with complications Procedures [facility] Lower Extremity Bilat Venous Reflux Ban Corbin APRN, DIRECTOR LOSS PREVENTION [address] [place] [address] Referral ID Status Reason Start Date Expiration Date V isits Requested Visits Authorized [id number] Incomplete 04/24/2023 07/23/2024 1 1 SETTER Reason for Visit * Procedure/Equipment (Routine) - Incomplete Specialty Diagnoses / Procedures Referred By Contac t Referred To Contact Diagnoses Varicose veins of both lower extremities with complications Procedures [facility] Lower Extremity Bilat Venous Reflux Ban Corbin APRN, DIRECTOR LOSS PREVENTION [address] [place] [address] Referral ID Status Reason Start Date Expiration Date V isits Requested Visits Authorized [id number] Incomplete 04/24/2023 07/23/2024 1 1 Encounter Details Date Type Department Care Team (Late st Contact Info) Description 05/07/2023 2:30 PM EGG SETTER - 05/07/2023 11:59 PM EGG SETTER Hospital En[facility] [address] [employer] [place] [address] Ban Corbin, PROFESSOR OF CHEMISTRY, DIRECTOR LOSS PREVENTION [address] [place] [address] Varicose veins of both lower extremities with complications Discharge Disposition: Home Social History Tobacco Use Types Packs/Day Years [...] Sig Dispensed Refills Start Date End Date D3-50 1.25 MG (01547 UT) capsule Take 1 Capsule (50,000 Units) by mouth once every week. 02/26/2023 documented as of this encounter Plan of Treatment Not on file documented as of this encounter Procedures Procedure Name Priority Date/Time Associated Diagnosis Comments [facility] LOWER EXTREMITY BILAT VENOUS REFLUX Routine 05/07/2023 3:18 PM EGG SETTER Varicose veins of both lower extremities with complications documented in this encounter Results * [facility] Lower Extremity Bilat Venous Reflux (05/07/2023 3:18 PM EGG SETTER) Anatomical Region Laterality Modality Vascular, Lower Extremity, Leg U ltrasound 05/07/2023 2:35 PM EGG SETTER Impressions 05/07/2023 7:53 PM EGG SETTER Indication: Varicose veins A duplex ultrasound study [...] length. There is no evidence of incompetent assistant manager bilingual veins at any level. There is evidence [...] entirety. There is no evidence of incompetent assistant manager bilingual veins at any level. There is evidence [...] length. There is no evidence of incompetent assistant manager bilingual veins at any level. There is evidence [...] entirety. There is no evidence of incompetent assistant manager bilingual veins at any level. There is evidence [...] extremity deep vein thrombosis. Ban Corbin APRN, CNP RAD VASCULAR US documented in this encounter Visit Diagnoses Diagnosis Varicose veins of both lower extremities with complications documented in this encounter Care Teams Regional Environmental Manager Relationship Specialty Start Date End Date Cheri Ramos APRN, DIRECTOR LOSS PREVENTION [address] [place] [address] PCP - General Nurse Practitioner 04/13/23 documented as of this encounter
== END 2023-07-30 13:45 | disposition home or self-care (01) ==
LOC: LKVREF 13:45
PROVIDERS: PCP Physician Assistant Medical; Visit Provider Physician Assistant Medical
DX: R79.89 Other specified abnormal findings of blood chemistry (principal)
CPT/HCPCS: 82306

== ENCOUNTER 2023-10-21 15:08 | Outpatient (CLI) | payer BC, SELFPAY | END 2023-10-21 15:09 | disposition home or self-care (01) | PROVIDERS: PCP Physician Assistant Medical; Visit Provider Physician Assistant Medical | DX: R53.83 Other fatigue (principal); E55.9 Vitamin D deficiency, unspecified; R74.8 Abnormal levels of other serum enzymes; D64.9 Anemia, unspecified; R74.02 Elevation of levels of lactic acid dehydrogenase [LDH]; R79.89 Other specified abnormal findings of blood chemistry; D47.2 Monoclonal gammopathy | CPT/HCPCS: 82306; 82550; 82607; 82728; 83540; 83550; 83615; 86140; 86618; 87468; 87469; 87484; 87798 ==

== ENCOUNTER 2023-11-19 09:51 | Outpatient (CLI) | payer BC, SELFPAY ==
--- OUTSIDE RECORDS SUMMARY | 2023-11-19 09:57 | XMS_ITS | Clinical Summary ---
Author Organization [place] Address [facility] [place] [address] Care Team Providers Care Cattyman Name Role Phone Soila Beasley PA-C Primary Care Provider Dodie Rosas DO Unavailable [phone] Dodie Rosas DO Unavailable [phone] Allergies Active Allergy Reactions Criticality Noted Date Comments Ciprofloxacin 08/22/2021 Other Environmental Allergy 06/10/19 24 Fragrances, some metals such as kate Medications Medication Sig Dispensed Refills Start Date End Date Status Multiple Vitamin (MULTIVITAMIN ADULT PO) Take by mouth once a week Very inconsistent with taking this Active ergocalciferol (ERGOCALCIFEROL) 1.25 MG (97722 UT) capsule Take 50,000 Units by mouth [...] 36.7 ??C (98 ??F) 03/22/2023 5:08 PM SUPERVISOR MIXING Respiratory Rate 20 03/22/2023 7:29 PM SUPERVISOR MIXING Oxygen Saturation 98% 03/22/2023 7:29 PM SUPERVISOR MIXING Inhaled Oxygen Concentration - - Weight 92.3 [...] - Td or Tdap) 09/17/2016 09/17/2006, 09/17/2006 PHQ-2 (once per calendar year) 2023 MAMMO SCREENING 04/25/2023 04/25/2021, 04/09, 04/25/2021 PAP 10/30/2023 10/29/2020, 10/29/2020 COVID-19 Vaccine ( season) 2023 INFLUENZA VACCINE (#1) 2023 1, 02/03/2011, 03/25/2010, Additional history exists GLUCOSE 03/22/2026 03/22/2023, 10/2017, 08/21/2015 HEPATITIS B IMMUNIZATION Completed 996, [...] Procedure Name Priority Date/Time Associated Diagnosis Comments BASIC METABOLIC PANEL STAT 03/22/2023 6:11 PM SUPERVISOR MIXING from Last 3 Months or Most Recently Relevant to Health Maintenance Results * Basic metabolic panel (03/22/2023 6:11 PM SUPERVISOR MIXING) Sodium 138 135 - 145 mmol/L 03/22/2023 6:51 PM SUPERVISOR MIXING LABORATORY Comment:Reference intervals for this test were updated on 12/02/2022 to more accurately reflect our healthy population. There may be differences in the flagging of prior results with similar values performed with this method. Interpretation of those prior results can be made in the context of the updated reference intervals. Potassium 4.0 3.4 - 5.3 mmol/L 03/22/2023 6:51 PM SUPERVISOR MIXING LABORATORY Chloride 103 98 - 107 mmol/L 03/22/2023 6:51 PM SUPERVISOR MIXING LABORATORY Carbon Dioxide (CO2) 26 22 - 29 mmol/L 03/22/2023 6:51 PM SUPERVISOR MIXING LABORATORY Anion Gap 9 7 - 15 mmol/L 03/22/2023 6:51 PM SUPERVISOR MIXING LABORATORY Urea Nitrogen 15.8 6.0 - 20.0 mg/dL 03/22/2023 6:51 PM SUPERVISOR MIXING LABORATORY Creatinine 0.66 0.51 - 0.95 mg/dL 03/22/2023 6:51 PM SUPERVISOR MIXING LABORATORY GFR Estimate >90 >60 mL/min/1. 73m2 03/22/2023 6:51 PM SUPERVISOR MIXING LABORATORY Calcium 9.4 8.6 - 10.0 mg/dL 03/22/2023 6:51 PM SUPERVISOR MIXING LABORATORY Glucose 87 70 - 99 mg/dL 03/22/2023 6:51 PM SUPERVISOR MIXING LABORATORY Blood STRUCTURE OF LEFT UPPER LIMB / Unknown Venipuncture / Unknown 03/22/2023 6:11 PM SUPERVISOR MIXING 03/22/2023 6:25 PM SUPERVISOR MIXING Ajay Saeed MD LAB - BLOOD ORDERABL ES LABORATORY [facility] Acute Care Lab [address] [facility] Lab (1st floor, no room number) [place] [address], [place] [phone] from Last 3 Months or Most Recently Relevant to Health Maintenance Care Teams Cattyman Relationship Specialty Start Date End Date Soila Beasley PA-C [facility] [address] [place] [address] PCP - General Physician Cushion Installer 03/22/23 Dodie Rosas DO [address] [place] [address] Physician Cardiovascular Disease 03/23/23 Dodie Rosas DO [address] [place] [address] Assigned Heart and Vascular Provider 06/30/23
--- OUTSIDE RECORDS SUMMARY | 2023-11-19 09:57 | XMS_ITS | Clinical Summary ---
Author Organization [facility] Address [address] [place] [address] Care Team Providers Care Fabric Normalizer Name Role Phone Cheri Ramos APRN, FABRIC NORMALIZER Primary Care Provi sravani Source Comments You are receiving this document as you are listed as the primary care provider,follow-up provider, or the patient has been referred to you for consultation.This is in compliance with the Medicare and[facility] Hospital[facility] EHR Incentive Program,which states Providers who transition their patient to another setting of careor provider of care or refers their patient to another provider of care shouldprovide summary care record for each transition of care or referral. [facility] Allergies Active Allergy Reactions Criticality Noted Date Comments Ciprofloxacin Hives High 08/22/2021 Medications Medication Sig Dispensed Refills Start Date End Date Status D3-50 1.25 MG (99560 UT) capsule Take 1 Capsule (50,000 Units) by mouth once every week. 02/26/2023 Active Active Problems Problem Noted Date Diagnosed Date Vitamin D deficiency 04/14/2023 MGUS (monoclonal gammopathy of unknown significa nce) 04/14/2023 Thrombophlebitis of superfic ial veins of right lower extremity 04/14/2023 Overview (04/14/2023): History of varicose veins. Superficial thrombophlebitis diagnosed 03/22. On 45 day of Xarelto. Social History Tobacco Use Types Packs/Day Years [...] Comments Blood Pressure 125/54 05/07/2023 3:20 PM BAG ADJUSTER Pulse 71 05/07/2023 3:20 PM BAG ADJUSTER Temperature - - Respiratory Rate - - Oxygen Saturation - - Inhaled Oxygen Concentration - - Weight 90.3 kg (199 lb) 04/14/2023 7:17 AM BAG ADJUSTER Height 168 cm (5' 6.14) 04/14/2023 7:17 AM BAG ADJUSTER Body Mass Index 31.98 04/14/2023 7:17 AM BAG ADJUSTER Plan of Treatment Health Maintenance Due Date Last Done Comments Cervical Cancer Screening Due 1966 Colon Cancer Screening Plan Due 1966 Diabetes Screening- (based o n age and BMI) 1966 Hep C Screening (Preventive Services) 1966 MTM Covered 1966 Pneumococcal (1 - PCV) 1972 HIV Screening (Preventive Services) 1982 Adult Preventive Visit 1984 HepB (1) 1985 Cholesterol 05/13/2011 Zoster/Shingles (1 of 2) 2016 DTaP/Tdap/Td (2 - Tdap) 09/17/2016 09/17/2006 Mammogram 04/25/2022 04/25/2021, 04/25/2021 COVID-19 Vaccine (1 - 2022-2 4 season) 2023 Influenza (#1) 2023 02/03/2011, 03/25/2010, 01/24/2008 HepA Aged Out No longer [...] age to complete this topic Care Teams Fabric Normalizer Relationship Specialty Start Date End Date Cheri Ramos, MULTI PURPOSE MACHINE OPERATOR, FABRIC NORMALIZER [address] [place] [address] PCP - General Nurse Practitioner 04/13/23
--- OUTSIDE RECORDS SUMMARY | 2023-11-19 09:57 | XMS_ITS | Referral Summary ---
Author Organization [place] Address [facility] [address] Care Team Providers Care Cabin Cleaning Supervisor Name Role Phone Soila Beasley PA-C Primary Care Provider Dodie Rosas DO Unavailable [phone] Dodie Rosas DO Unavailable [phone] Allergies Active Allergy Reactions Criticality Noted Date Comments Ciprofloxacin 08/22/2021 Other Environmental Allergy 06/10/19 24 Fragrances, some metals such as kate Medications Medication Sig Dispensed Refills Start Date End Date Status Multiple Vitamin (MULTIVITAMIN ADULT PO) Take by mouth once a week Very inconsistent with taking this Active ergocalciferol (ERGOCALCIFEROL) 1.25 MG (92509 UT) capsule Take 50,000 Units by mouth [...] 36.7 ??C (98 ??F) 03/22/2023 5:08 PM VISUAL COMMUNICATIONS INSTRUCTOR Respiratory Rate 20 03/22/2023 7:29 PM VISUAL COMMUNICATIONS INSTRUCTOR Oxygen Saturation 98% 03/22/2023 7:29 PM VISUAL COMMUNICATIONS INSTRUCTOR Inhaled Oxygen Concentration - - Weight 92.3 kg (203 lb 8 oz) 06/10/2023 1:43 PM CDT Height 168.9 cm (5' 6.5) 06/10/2023 1:43 PM CDT Body Mass Index 32.35 06/10/2023 1:43 PM CDT Plan of Treatment Not on file Procedures Procedure Name Priority Date/Time Associated Diagnosis Comments BASIC METABOLIC PANEL STAT 03/22/2023 6:11 PM VISUAL COMMUNICATIONS INSTRUCTOR from Last 3 Months or Most Recently Relevant to Health Maintenance Results * Basic metabolic panel (03/22/2023 6:11 PM VISUAL COMMUNICATIONS INSTRUCTOR) [facility] Sodium 138 135 - 145 mmol/L 03/22/2023 6:51 PM [facility] Comment:Reference intervals for this test were updated on 12/02/2022 to more accurately reflect our healthy population. There may be differences in the flagging of prior results with similar values performed with this method. Interpretation of those prior results can be made in the context of the updated reference intervals. Potassium 4.0 3.4 - 5.3 mmol/L 03/22/2023 6:[address] [facility] Chloride 103 98 - 107 mmol/L 03/22/2023 6:[address] [facility] Carbon Dioxide (CO2) 26 22 - 29 mmol/L 03/22/2023 6:[address] [facility] Anion Gap 9 7 - 15 mmol/L 03/22/2023 6:[address] [facility] Urea Nitrogen 15.8 6.0 - 20.0 mg/dL 03/22/2023 6:51 PM [facility] Creatinine 0.66 0.51 - 0.95 mg/dL 03/22/2023 6:51 PM VISUAL COMMUNICATIONS INSTRUCTOR RH LABORATORY GFR Estimate >90 >60 mL/min/1. 73m2 03/22/2023 6:[address] [facility] Calcium 9.4 8.6 - 10.0 mg/dL 03/22/2023 6:[address] [facility] Glucose 87 70 - 99 mg/dL 03/22/2023 6:[address] [facility] Blood STRUCTURE OF LEFT UPPER LIMB / Unknown Venipuncture / Unknown 03/22/2023 6:11 PM VISUAL COMMUNICATIONS INSTRUCTOR 03/22/2023 6:25 PM VISUAL COMMUNICATIONS INSTRUCTOR Ajay Saeed MD LAB - BLOOD ORDERABL ES [facility] Acute Care Lab [address] Lab (1st floor, no room number) [place] [address], [facility] [phone] from Last 3 Months or Most Recently Relevant to Health Maintenance Care Teams Cabin Cleaning Supervisor Relationship Specialty Start Date End Date Soila Beasley PA-C [facility] [address] [place] [address] PCP - General Physician B2B Account Executive 03/22/23 Dodie Rosas DO [address] [place] [address] Physician Cardiovascular Disease 03/23/23 Dodie Rosas DO [address] [place] [address] Assigned Heart and Vascular Provider 06/30/23
--- OUTSIDE RECORDS SUMMARY | 2023-11-19 09:57 | XMS_ITS | Clinical Summary ---
Author Organization [facility] Address [place], [place] [address] Care Team Providers Care Light Armored Vehicle Officer Name Role Phone Clinic, No Pcp Or Primary Care Provider Unavaila ble Allergies Active Allergy Reactions Criticality Noted Date Comments Adhesive Tape-Silicones Erythema Low 09/11/2017 Patient had a mild rash after having Tegaderm removed. Medications No known medications Active Problems Problem Noted Date Diagnosed Date Other emphysema 08/02/2023 Smoker 02/27/2014 Immunizations Name Administration Dates Next Due DTaP [...] Outcome GA Total Labor Labor/2nd/3rd Weight Sex Type Anes PTL Karime A1 A5 Name Clin Term Last Filed Vital Signs Vital Sign [...] C screening for ag e 18-79 1984 Lipids for age 45-75 05/13/2011 Zoster (shingles) series for age 50+ (1 of 2) 2016 Tetanus booster 09/17/2016 09/17/2006 Mammogram for age 45-75 04/25/2022 04/25/19, 09/10/2012, 08/23/2012 Pap test for age 21-65 10/30/2023 10/29/2020, 2020 COVID-19 vaccine series ( season) 2023 Influenza for age 50-64 11/08/2023 02/04/20 11, 03/25/2010, 01/24/2008, Additional history exists BMI (ht and wt on same day) for age 18+ 07/28/2024 07/29/2023 Colonoscopy through age 75 03/05/2031 03/05/2021 Tdap Completed 09/17/2006 Procedures Procedure Name Priority Date/Time Associated Diagnosis Comments XR MAMMO TUAN BILAT SCREEN Routine 04/25/2021 10:21 AM MORPHOLOGY TEACHER Visit for screening mammogram SCAN-COLONOSCOPY 03/05/2021 12:0 0 AM MORPHOLOGY TEACHER SENIOR IT RECRUITER THIN PREP PAP SCREEN IMAGED Routine 10/29/2020 12:00 PM CDT from Last 3 Months or Most Recently Relevant to Health Maintenance Results * XR MAMMO TUAN BILAT SCREEN (04/25/2021 10:21 AM MORPHOLOGY TEACHER) Anatomical Region Laterality Modality BREASTS, Breast Left, Breast Right Bilateral Mammography Impressions 04/25/2021 11:14 AM MORPHOLOGY TEACHER ??There is no radiographic evidence for malignancy. ??Recommend annual mammograms. MAMMOGRAM ASSESSMENT: ??ACR 1 Negative PATIENTS: You will also receive a letter with your examination results in an easy to read format. ??If you have questions about your results, please contact your referring provider. Narrative 04/25/2021 11:14 AM MORPHOLOGY TEACHER For Patients: As a result of the Century Cures Act, medical imaging exams and procedure reports are released immediately into your electronic medical record. You may view this report before your referring provider. If you have questions, please contact your health care provider. XR MAMMO TUAN BILAT SCREEN [[id number]] CLINICAL HISTORY: ??This is an asymptomatic 55 y.o. patient. INDICATION FOR EXAM: Mammogram Screening. TECHNIQUE: CC & MLO views were obtained. ??This study was evaluated with the assistance of Computer-Aided Detection. Breast Tomosynthesis was used in interpretation. COMPARISON FILM: Yes 08/23/12 [facility] ?? FINDINGS: ??The breasts are heterogeneously dense, which may obscure small masses. There are no dominant masses, suspicious micro calcifications or areas of architectural distortion. Soila Beasley PA-C MAMMO * SCAN-COLONOSCOPY (03/05/2021 12:00 AM MORPHOLOGY TEACHER) Scanner OTHER * SENIOR IT RECRUITER THIN PREP PAP SCREEN IMAGED (10/29/2020 12:00 PM CDT) Case Report Gynecologic Cytology Report ? Case: [id number] ? Authorizing Provider: ??Soila Beasley PA-C ?Collected: ? 10/29/2020 1200 ? Ordering Location: ? [facility] ?Received: ?10/31/2020 0917 ? First Screen: ?Yamilex Pace ? Specimen: ?SENIOR IT RECRUITER ThinPrep Vial Screening, Cervical/Vaginal ? 11/13/2020 1:39 PM CDT [facility] INTERPRETATION/ RESULT NEGATIVE FOR INTRAEPITHELIAL LESION OR MALIGNANCY (NIL) (none) 11/13/2020 1:39 PM CDT [facility] IMEN ADEQUACY Satisfactory for evaluation Endocervical component present 11/13/2020 1:39 PM CDT [facility] HPV REQUEST HPV and PAP 11/13/2020 1:39 PM CDT [facility] Date of LMP 11/13/2020 1:39 PM CDT [facility] Comment:Unknown Last Pap Date 11/13/2020 1:39 PM CDT [facility] Comment:Unknown Additional Information 11/13/2020 1:39 PM CDT [facility] Comment: Interpreted at [facility] Laboratory - [address], [place] [address] Automated Review Successful 11/13/2020 1:39 PM CDT [facility] Comment:Specimen processed s uccessfully by automated machine sprayer device, PowerlinxPrep Imaging System, [employer] ANCILLARY TESTING SENIOR IT RECRUITER HPV Ordered, Please see separate report 11/13/2020 1:39 PM CDT [facility] Note The pap test is a [...] and malignant lesions. 11/13/2020 1:39 PM CDT [facility] Other (Cervical/Vagina l) 10/29/2020 12:00 PM CDT 10/31/2020 9:17 AM CDT Soila Beasley PA-C PATHOLOGY/CYTOLOGY [facility] [address] [place] [address], [place] from Last 3 Months or Most Recently Relevant to Health Maintenance Care Teams Light Armored Vehicle Officer Relationship Specialty Start Date End Date Clinic, No Pcp Or . PCP - General 07/29/23
== END 2023-11-19 09:52 | disposition home or self-care (01) ==
PROVIDERS: PCP Physician Assistant Medical; Visit Provider Physician Assistant Medical
DX: R74.02 Elevation of levels of lactic acid dehydrogenase [LDH] (principal); R74.8 Abnormal levels of other serum enzymes; R53.82 Chronic fatigue, unspecified
CPT/HCPCS: 82085; 82671; 83520; 83529; 86041